=== PATIENT | female | born 1925 | race Caucasian/White ===

== ENCOUNTER 2017-02-28 12:00 | Inpatient (IN) | payer MEDICARE, OTHER ==
--- NOTE | 2017-02-28 13:01 | ED PDOC ---
HPI: Abdomen Time Seen by Provider: 02/28/17 12:09 Chief Complaint (Nursing): Abdominal Pain Chief Complaint (Provider): Abdominal Pain History Per: Patient History/Exam Limitations: no limitations Onset/Duration Of Symptoms: Days (x 3) Current Symptoms Are (Timing): Still Present Associated Symptoms: Vomiting Last Bowel Movement: Yesterday Additional Complaint(s): Rosanna is an 89 y/o female who presents to the ED complaining of abdominal pain ongoing for 3 days, with associated vomiting this morning. Patient has a history of chronic constipation, last bowel movement was yesterday and she completed an enema today. Denies fever, diarrhea, dysuria, and hematuria. Was seen at [facility] 1 month ago and had a CT scan that was negative. PMD: Unknown Past Medical History Reviewed: Historical Data, Nursing Documentation, Vital Signs Vital Signs: Last Vital Signs Temp 98.3 F 02/28/17 15:28 Pulse 74 02/28/17 15:28 Resp 20 02/28/17 12:05 BP 123/76 02/28/17 15:28 Pulse Ox 98 02/28/17 15:28 - Medical History PMH: Arthritis, CAD, Cardia Arrhythmia, Diverticulitis, Gastritis, Hiatal Hernia , Osteoporosis - Surgical History Surgical History: Appendectomy, Cholecystectomy Other surgeries: Hiatal hernia repair 2 years ago - Family History Family History: States: Unknown Family Hx - Social History Current smoker - smoking cessation education provided: No Alcohol: None Drugs: Denies - Home Medications Home Medications: Ambulatory Orders Medication Instructions Recorded Dicyclomine HCl [Dicyclomine HCl] 10 mg PO TID 02/28/17 Digoxin [Lanoxin] 0.25 mg PO DAILY 02/28/17 Furosemide [Lasix] 40 mg PO DAILY 02/28/17 Levocetirizine Dihydrochloride 5 mg PO PRN 02/28/17 [Xyzal] traMADol [Ultram] 50 mg PO Q4 PRN 02/28/17 - Allergies Allergies/Adverse Reactions: Allergies Allergy/AdvReac Type Severity Reaction Status Date / Time apple Allergy SHORTNESS Verified 02/28/17 12:59 OF BREATH banana Allergy SHORTNESS Verified 02/28/17 12:59 OF BREATH FISH Allergy SHORTNESS Verified 02/28/17 12:59 OF BREATH iodine Allergy SHORTNESS Verified 02/28/17 12:59 OF BREATH latex Allergy RASH Verified 02/28/17 12:59 codeine AdvReac ANAPHYLAXIS Verified 02/28/17 12:59 lidocaine AdvReac ANAPHYLAXIS Verified 02/28/17 12:59 Review of Systems ROS Statement: Except As Marked, All Systems Reviewed And Found Negative Constitutional: Negative for: Fever Gastrointestinal: Positive for: Vomiting, Abdominal Pain, Constipation (chronic) . Negative for: Diarrhea Genitourinary Female: Negative for: Dysuria, Hematuria Physical Exam - Reviewed Nursing Documentation Reviewed: Yes Vital Signs Reviewed: Yes - Physical Exam Appears: Positive for: Non-toxic, In Acute Distress (moderate painful distress) Head Exam: Positive for: ATRAUMATIC, NORMAL INSPECTION, NORMOCEPHALIC Skin: Positive for: Normal Color, Warm, Dry Eye Exam: Positive for: EOMI, Normal appearance, PERRL Neck: Positive for: Normal, Painless ROM, Supple Cardiovascular/Chest: Positive for: Regular Rate, Rhythm. Negative for: Murmur Respiratory: Positive for: Normal Breath Sounds. Negative for: Accessory Muscle Use, Respiratory Distress Gastrointestinal/Abdominal: Positive for: Soft, Tenderness (generalized abdominal tenderness, mostly in LUQ). Negative for: Guarding, Rebound Back: Positive for: Normal Inspection. Negative for: Vertebral Tenderness Extremity: Positive for: Normal ROM. Negative for: Pedal Edema, Deformity Neurologic/Psych: Positive for: Alert, Oriented - Laboratory Results Result Diagrams: 02/28/17 13:05 02/28/17 13:05 - ECG O2 Sat by Pulse Oximetry: 98 (RA) Pulse Ox Interpretation: Normal - Critical Care Total Time (In Min): 30 Medical Decision Making Medical Decision Making: Time: 12:59 Impression: Abdominal Pain and Vomiting Initial Plan: --CMP --CBC w/ differential --Lipase --PTT --Prothrombin time --Urine dipstick --Urinalysis --EKG --Bentyl 20 mg IM --Zofran 4 mg IV --Pending CT Abdomen/Pelvis Time: 13:57 --Digoxin stat Time: 15:02 CT Abdomen/Pelvis: FINDINGS: Free air under the diaphragms, free air throughout the abdomen and pelvis, multiple small ocular also air identified. Intense inflammatory changes in the left lower quadrant and pelvis likely related to acute diverticulitis affecting the descending colon and adjacent sigmoid colon. Micro perforations are also identified. LOWER THORAX: Unremarkable. LIVER: Unremarkable. No gross lesion or ductal dilatation. GALLBLADDER AND BILE DUCTS: Status post cholecystectomy. No abnormality is seen in the gallbladder fossa. PANCREAS: Atrophic pancreas without focal abnormality SPLEEN: Unremarkable. ADRENALS: Unremarkable. No mass. KIDNEYS AND URETERS: Unremarkable. No hydronephrosis. No solid mass. VASCULATURE: Unremarkable. No aortic aneurysm. BOWEL: Intense inflammatory changes affecting the descending colon and sigmoid. This likely, given extensive diverticular disease, represents acute diverticulitis and perforations both micro perforations and free air. Alternatively, less likely would be acute colitis accounting for these findings. Right inguinal hernia identified, of this appears be chronic it was apparent on the prior study from February 24, 2010. APPENDIX: A normal appendix is not visualized. PERITONEUM: Unremarkable. No free fluid. No free air. LYMPH NODES: Unremarkable. No enlarged lymph nodes. BLADDER: Unremarkable. REPRODUCTIVE: Unremarkable. BONES: Profound osteopenia. Evidence of previous kyphoplasty T11 and L1. Compression fracture T12. OTHER FINDINGS: None. IMPRESSION: Intense inflammatory changes left ana abdomen and pelvis primarily centered about the descending colon and sigmoid. This more likely represents acute diverticulitis than colitis. Perforation of a viscus likely the descending colon has resulted in free intraperitoneal air. These inflammatory changes dissects along the peritoneal refraction and are contiguous with the left psoas muscle. Free air identified throughout the abdomen and pelvis. No drainable collection identified. Critical results protocol: 1. Study completed 14:24. 2. Radiologist notification 14:38. 3. Critical results provided to Dr. Jenkins in the emergency department at 14: 51. 4. Results available in the electronic medical record 15:01 Time: 14:56 Surgery paged. Time: 15:[address] Kaba, MELISSAO, [facility], Surgery resident. Time: 15:15 Case discussed with residential substance abuse counselor. Time: 15:23 Case discussed with Assistant Community Director: Dr. Diaz Scribe Attestation: Documented by Khadijah Thurman, acting as a scribe for Christel Rasheed MD Provider Scribe Attestation: All medical record entries made by the Scribe were at my direction and personally dictated by me. I have reviewed the chart and agree that the record accurately reflects my personal performance of the history, physical exam, medical decision making, and the department course for this patient. I have also personally directed, reviewed, and agree with the discharge instructions and disposition. Disposition - Clinical Impression Clinical Impression: Acute diverticulitis, Perforated abdominal viscus, Free intraperitoneal air - Patient ED Disposition Is Patient to be Admitted: Yes - Disposition Referrals: Provider TBD, [Primary Care Provider] - Disposition Time: 16:15 Condition: GUARDED Forms: [employer] (Romanian) - Pt Status Changed To: Hospital Disposition Of: Inpatient - Admit Certification Admit to Inpatient:: After my assessment, the patient will require hospitalization for at least two midnights. This is because of the severity of symptoms shown, intensity of services needed, and/or the medical risk in this patient being treated as an outpatient. - POA Present On Arrival: Poor Glycemic Control
[2017-02-28 13:22] LABS: HEMATOCRIT 38.8 % (34.0-47.0); LYMPH # 0.4 K/uL (1.0-4.3); LYMPH % 3.8 % (20.0-40.0); MEAN CORPUSCULAR HEMOGLOBIN 31.8 pg (27.0-31.0); MEAN CORPUSCULAR HGB CONC 34.2 g/dL (33.0-37.0); MEAN PLATELET VOLUME 8.3 fl (7.2-11.7); MONO # 0.3 K/uL (0.0-0.8); MONO % 3.1 % (0.0-10.0); NEUT # 8.9 K/uL (1.8-7.0); NEUT % 93.1 % (50.0-75.0); NRBC % 0.1 % (0.0-0.0); PLATELET COUNT 241 K/uL (130-400); RED CELL DISTRIBUTION WIDTH 14.8 % (11.5-14.5); WHITE BLOOD COUNT 9.5 K/uL (4.8-10.8)
[2017-02-28 13:37] LABS: ALB/GLOB RATIO 1.2 (1.0-2.1); ALKALINE PHOSPHATASE 56 U/L (38-126); ALT/SGPT 38 U/L (9-52); AST/SGOT 23 U/L (14-36); BILIRUBIN,TOTAL 0.8 mg/dl (0.2-1.3); BLOOD UREA NITROGEN 25 mg/dl (7-17); CALCIUM 8.7 mg/dL (8.4-10.2); CARBON DIOXIDE 28 mmol/L (22-30); CHLORIDE 99 mmol/L (98-107); GFR AFRICAN-AMERICAN > 60; GLUCOSE,RANDOM 220 mg/dL (65-105); LIPASE 25 U/L (23-300); POTASSIUM 4.2 MMOL/L (3.6-5.0); SODIUM 137 mmol/l (132-148); TOTAL PROTEIN 6.6 G/DL (6.3-8.2)
[2017-02-28] MEDS ORDERED: Iohexol 300 100 ML IJ ONE (14:15)
[2017-02-28] MEDS ORDERED: Sodium Chloride 0.9% 0 ML IV ONE (14:15)
[2017-02-28 14:16] LABS: LARGE PLATELETS PRESENT; NEUTROPHIL 86 % (42-75); REACTIVE LYMPHOCYTES 1 % (0-0); TOTAL CELLS COUNTED 100
[2017-02-28 14:32] LABS: RBC URINE 9 /hpf (0-3); URINE BILIRUBIN NEGATIVE (NEGATIVE); URINE BLOOD NEGATIVE (NEGATIVE); URINE COLOR YELLOW (YELLOW); URINE GLUCOSE (UA) 150 mg/dL (Normal); URINE KETONE TRACE mg/dL (NEGATIVE); URINE LEUKOCYTE ESTERASE NEG Leu/uL (Negative); URINE PROTEIN 30 mg/dL (NEGATIVE); URINE UROBILINOGEN 0.2-1.0 mg/dL (0.2-1.0); WBC URINE < 1 /hpf (0-5)
[2017-02-28] MEDS ORDERED: Fluconazole 150 MG TAB PO STA (14:37)
--- NOTE | 2017-02-28 15:04 | CT ---
PROCEDURE: CT Abdomen and Pelvis without intravenous contrast HISTORY: Abd pain COMPARISON: 02/24/2010 CT abdomen and pelvis TECHNIQUE: Unenhanced study. Neither oral nor intravenous contrast administered. Radiation dose: Total exam DLP = 463.43 mGy-cm. This CT exam was performed using one or more of the following dose reduction techniques: Automated exposure control, adjustment of the mA and/or kV according to patient size, and/or use of iterative reconstruction technique. FINDINGS: Free air under the diaphragms, free air throughout the abdomen and pelvis, multiple small ocular also air identified. Intense inflammatory changes in the left lower quadrant and pelvis likely related to acute diverticulitis affecting the descending colon and adjacent sigmoid colon. Micro perforations are also identified. LOWER THORAX: Unremarkable. LIVER: Unremarkable. No gross lesion or ductal dilatation. GALLBLADDER AND BILE DUCTS: Status post cholecystectomy. No abnormality is seen in the gallbladder fossa. PANCREAS: Atrophic pancreas without focal abnormality SPLEEN: Unremarkable. ADRENALS: Unremarkable. No mass. KIDNEYS AND URETERS: Unremarkable. No hydronephrosis. No solid mass. VASCULATURE: Unremarkable. No aortic aneurysm. BOWEL: Intense inflammatory changes affecting the descending colon and sigmoid. This likely, given extensive diverticular disease, represents acute diverticulitis and perforations both micro perforations and free air. Alternatively, less likely would be acute colitis accounting for these findings. Right inguinal hernia identified, of this appears be chronic it was apparent on the prior study from February 24, 2010. APPENDIX: A normal appendix is not visualized. PERITONEUM: Unremarkable. No free fluid. No free air. LYMPH NODES: Unremarkable. No enlarged lymph nodes. BLADDER: Unremarkable. REPRODUCTIVE: Unremarkable. BONES: Profound osteopenia. Evidence of previous kyphoplasty T11 and L1. Compression fracture T12. OTHER FINDINGS: None. IMPRESSION: Intense inflammatory changes left ana abdomen and pelvis primarily centered about the descending colon and sigmoid. This more likely represents acute diverticulitis than colitis. Perforation of a viscus likely the descending colon has resulted in free intraperitoneal air. These inflammatory changes dissects along the peritoneal refraction and are contiguous with the left psoas muscle. Free air identified throughout the abdomen and pelvis. No drainable collection identified. Critical results protocol: 1. Study completed 14:24. 2. Radiologist notification 14:38. 3. Critical results provided to Dr. Jenkins in the emergency department at 14:51. 4. Results available in the electronic medical record 15:01
[2017-02-28] MEDS ORDERED: HYDROmorphone 0.5 mg/0.5 ml ISec ONE (15:19)
[2017-02-28] MEDS ORDERED: Piperacillin/Tazobact 3.375 GM in Sodium Chloride 0.9% 100 ML IVPB STA (15:57)
[2017-02-28] MEDS ORDERED: Piperacillin/Tazobact 3.375 gm Inj IVPB ONE (16:02)
--- NOTE | 2017-02-28 16:17 | CP.PCM.CON ---
<Constantin Murillo - Last Filed: 02/28/17 18:59> History of Present Illness - History of Present Illness History of Present Illness: General Surgery Consult Note for Dr. Kaba 83 F with PMH of diverticulitis, CHF, chronic back pain and glaucoma presents to ED with complaint of abdominal pain. Patient states that she has had this pain for 4 days. Four days ago, patient fell while walking with rolling walker. Patient states pain was gradual onset and progressively getting worse. Patient has had similar pain in past for diverticulitis flare but to a lesser intensity. Patient has chronic constipation and uses a fleet enema everyday for BM. Patient rates pain 10/10 in severity. She describes the pain as constant and sharp located in LLQ with radiation to umbilicus. She has associated nausea but denies vomiting. Denies any alleviating or exacerbating factors. Admits to chills but denies fever, cp, sob, diarrhea. PMD: Dr. Roberts PMH: diverticulitis, CHF, ?CAD, Osteoporosis, Gastritis, chronic back pain and glaucoma Meds: Lasix, Digoxin, Tramadol, Dicyclomine, Xyzal PSH: hiatal hernia repair 2 years ago, Appendectomy, Cholecystectomy Hosp: denies FH: unknown Social: former smoker - quit 20 years ago, denies etoh/illicit drug use. Review of Systems - Review of Systems All systems: reviewed and no additional remarkable complaints except (chills, constipation, nausea, abdominal pain) - Constitutional Constitutional: Chills. absent: Fever Past Patient History - Infectious Disease Hx of Infectious Diseases: None - Past Social History Alcohol: None Drugs: Denies - CARDIAC Hx Cardia Arrhythmia: Yes - MUSCULOSKELETAL/RHEUMATOLOGICAL Hx Arthritis: Yes Hx Osteoporosis: Yes - GASTROINTESTINAL Hx Diverticulitis: Yes Hx Gastritis: Yes - PSYCHIATRIC Hx Substance Use: No - SURGICAL HISTORY Hx Appendectomy: Yes Hx Cholecystectomy: Yes Meds Allergies/Adverse Reactions: Allergies Allergy/AdvReac Type Severity Reaction Status Date / Time apple Allergy SHORTNESS Verified 02/28/17 12:59 OF BREATH banana Allergy SHORTNESS Verified 02/28/17 12:59 OF BREATH FISH Allergy SHORTNESS Verified 02/28/17 12:59 OF BREATH iodine Allergy SHORTNESS Verified 02/28/17 12:59 OF BREATH latex Allergy RASH Verified 02/28/17 12:59 codeine AdvReac ANAPHYLAXIS Verified 02/28/17 12:59 lidocaine AdvReac ANAPHYLAXIS Verified 02/28/17 12:59 - Medications Medications: Current Medications Piperacillin Sod/Tazobactam (Sod 3.375 gm/ Sodium Chloride) 100 mls @ 100 mls/ hr IVPB STAT STA Stop: 02/28/17 16:56 Last Admin: 02/28/17 16:03 Dose: 100 mls/hr Physical Exam - Constitutional Appears: In Acute Distress (moderate) - Head Exam Head Exam: ATRAUMATIC, NORMOCEPHALIC - Eye Exam Eye Exam: Normal appearance - ENT Exam ENT Exam: Mucous Membranes Dry - Neck Exam Neck exam: Positive for: Full Rom - Respiratory Exam Respiratory Exam: NORMAL BREATHING PATTERN - Cardiovascular Exam Cardiovascular Exam: REGULAR RHYTHM - GI/Abdominal Exam GI & Abdominal Exam: Distended, Firm, Guarding, Rebound, Tenderness (LLQ, periumbilical) Additional comments: +Bowel sounds - Extremities Exam Extremities exam: Positive for: pedal edema, pedal pulses present. Negative for : calf tenderness - Back Exam Back exam: absent: CVA tenderness (L), CVA tenderness (R) - Neurological Exam Neurological exam: Alert, CN II-XII Intact, Oriented x3 - Psychiatric Exam Psychiatric exam: Normal Affect, Normal Mood - Skin Skin Exam: Dry, Intact, Normal Color, Warm Results - Vital Signs Recent Vital Signs: Last Vital Signs Temp 98.3 F 02/28/17 15:28 Pulse 74 02/28/17 15:28 Resp 20 02/28/17 12:05 BP 123/76 02/28/17 15:28 Pulse Ox 98 02/28/17 15:28 - Labs Result Diagrams: 02/28/17 13:05 02/28/17 13:05 Labs: Laboratory Results - last 24 hr 02/28/17 02/28/17 02/28/17 13:05 13:05 13:05 WBC 9.5 RBC 4.17 Hgb 13.3 Hct 38.8 MCV 93.0 MCH 31.8 H MCHC 34.2 RDW 14.8 H Plt Count 241 MPV 8.3 Neut % (Auto) 93.1 H Lymph % (Auto) 3.8 L [place] % (Auto) 3.1 Eos % (Auto) 0.0 Baso % (Auto) 0.0 Neut # 8.9 H Lymph # 0.4 L [place] # 0.3 Eos # 0.0 Baso # 0.0 Neutrophils % (Manual) 86 H Band Neutrophils % 5 H Lymphocytes % (Manual) 5 L Reactive Lymphs % 1 H Monocytes % (Manual) 3 Platelet Estimate Normal Large Platelets Present Poikilocytosis (manual Slight Anisocytosis (manual) Slight PT 13.8 H INR 1.3 H APTT 24.0 L Sodium 137 Potassium 4.2 Chloride 99 Carbon Dioxide 28 Anion Gap 14 BUN 25 H Creatinine 0.6 L Est GFR ( Amer) > 60 Est GFR (Non-Af Amer) > 60 Random Glucose 220 H Calcium 8.7 Total Bilirubin 0.8 AST 23 ALT 38 Alkaline Phosphatase 56 Total Protein 6.6 Albumin 3.6 Globulin 3.1 Albumin/Globulin Ratio 1.2 Lipase 25 Urine Color Urine Clarity Urine pH Ur Specific [place] Urine Protein Urine Glucose (UA) Urine Ketones Urine Blood Urine Nitrate Urine Bilirubin Urine Urobilinogen Ur Leukocyte Esterase Urine RBC (Auto) Urine Microscopic WBC Ur Squamous Epith Cells Ur Yeast w Hyphae Urine Yeast (Budding) Digoxin 02/28/17 02/28/17 14:00 14:19 WBC RBC Hgb Hct MCV MCH MCHC RDW Plt Count MPV Neut % (Auto) Lymph % (Auto) [place] % (Auto) Eos % (Auto) Baso % (Auto) Neut # Lymph # [place] # Eos # Baso # Neutrophils % (Manual) Band Neutrophils % Lymphocytes % (Manual) Reactive Lymphs % Monocytes % (Manual) Platelet Estimate Large Platelets Poikilocytosis (manual Anisocytosis (manual) PT INR APTT Sodium Potassium Chloride Carbon Dioxide Anion Gap BUN Creatinine Est GFR ( Amer) Est GFR (Non-Af Amer) Random Glucose Calcium Total Bilirubin AST ALT Alkaline Phosphatase Total Protein Albumin Globulin Albumin/Globulin Ratio Lipase Urine Color Yellow Urine Clarity Cloudy Urine pH 8.0 Ur Specific [place] 1.019 Urine Protein 30 Urine Glucose (UA) 150 Urine Ketones Trace Urine Blood Negative Urine Nitrate Negative Urine Bilirubin Negative Urine Urobilinogen 0.2-1.0 Ur Leukocyte Esterase Neg Urine RBC (Auto) 9 H Urine Microscopic WBC < 1 Ur Squamous Epith Cells < 1 Ur Yeast w Hyphae Rare H Urine Yeast (Budding) Few H Digoxin 0.6 L Assessment & Plan - Assessment and Plan (Free Text) Plan: 83 F with PMH of diverticulitis, CHF, chronic back pain and glaucoma presents for abdominal pain found to sigmoid diverticulitis with free air under the diaphragm. -CT abd/pelvis: Intense inflammatory changes left ana abdomen and pelvis primarily centered about the descending colon and sigmoid likely represents acute diverticulitis. Perforation of a viscus likely the descending colon has resulted in free intraperitoneal air. Free air identified throughout the abdomen and pelvis. No drainable collection identified (see full report). -Patient scheduled to go to OR for Kandis's procedure -NPO -IVF -IV Abx -Anti-emetics/Analgesics -DVT/GI ppx -DW Dr. Sesar Murillo PGY1 <Damon Kaba - Last Filed: 02/28/17 19:15> History of Present Illness - History of Present Illness History of Present Illness: Patient was seen and examined at the bedside. Agree with resident's note above. Results - Vital Signs Recent Vital Signs: Last Vital Signs Temp 98.5 F 02/28/17 17:46 Pulse 102 H 02/28/17 17:46 Resp 20 02/28/17 17:54 BP 135/83 02/28/17 17:46 Pulse Ox 99 02/28/17 17:46 - Labs Result Diagrams: 02/28/17 13:05 02/28/17 13:05 Labs: Laboratory Results - last 24 hr 02/28/17 16:56 Blood Type A NEGATIVE Antibody Screen Negative BBK History Checked No verified bt - Imaging and Cardiology CT scan - abdomen Status: Image reviewed by me, Report reviewed by me Assessment & Plan - Assessment and Plan (Free Text) Plan: - NPO - IV fluid hydration - Pain control - Zosyn IV - To OR for Exploratory Laparotomy, bowel resection and colostomy
--- NOTE | 2017-02-28 16:57 | CP.PCM.CON ---
History of Present Illness - History of Present Illness History of Present Illness: 89 YOF with no significant medical history came to ER with 3 days h/o abdominal pain, which got worse today. She has been having constipation and some vomiting also, use enema and had BM yesterday. No fever. In ER she had CT abdomen, which is CW perforated bowlel and divirticulitis. I saw the pt in ER, she was not hypotensive, no fever. Pt was also being evaluated by technical operations vice president, discussed and patient will go for surgery shortly. Review of Systems - Constitutional Constitutional: Weakness - EENT Eyes: As Per HPI Ears: As Per HPI - Cardiovascular Cardiovascular: As Per HPI - Respiratory Respiratory: As Per HPI - Gastrointestinal Gastrointestinal: Change in Bowel Habits - Genitourinary Genitourinary: As Per HPI - Neurological Neurological: As Per HPI Past Patient History - Infectious Disease Hx of Infectious Diseases: None - Past Social History Alcohol: None Drugs: Denies - CARDIAC Hx Cardia Arrhythmia: Yes - MUSCULOSKELETAL/RHEUMATOLOGICAL Hx Arthritis: Yes Hx Osteoporosis: Yes - GASTROINTESTINAL Hx Diverticulitis: Yes Hx Gastritis: Yes - PSYCHIATRIC Hx Substance Use: No - SURGICAL HISTORY Hx Appendectomy: Yes Hx Cholecystectomy: Yes Meds Allergies/Adverse Reactions: Allergies Allergy/AdvReac Type Severity Reaction Status Date / Time apple Allergy SHORTNESS Verified 02/28/17 12:59 OF BREATH banana Allergy SHORTNESS Verified 02/28/17 12:59 OF BREATH FISH Allergy SHORTNESS Verified 02/28/17 12:59 OF BREATH iodine Allergy SHORTNESS Verified 02/28/17 12:59 OF BREATH latex Allergy RASH Verified 02/28/17 12:59 codeine AdvReac ANAPHYLAXIS Verified 02/28/17 12:59 lidocaine AdvReac ANAPHYLAXIS Verified 02/28/17 12:59 - Medications Medications: Current Medications Piperacillin Sod/Tazobactam (Sod 3.375 gm/ Sodium Chloride) 100 mls @ 100 mls/ hr IVPB STAT STA Stop: 02/28/17 16:56 Last Admin: 02/28/17 16:03 Dose: 100 mls/hr Physical Exam - Head Exam Head Exam: ATRAUMATIC - Eye Exam Eye Exam: Normal appearance - ENT Exam ENT Exam: Mucous Membranes Moist - Neck Exam Neck exam: Positive for: Full Rom - Respiratory Exam Respiratory Exam: NORMAL BREATHING PATTERN - Cardiovascular Exam Cardiovascular Exam: Tachycardia - GI/Abdominal Exam GI & Abdominal Exam: Tenderness - Rectal Exam Rectal Exam: Deferred Results - Vital Signs Recent Vital Signs: Last Vital Signs Temp 98.5 F 02/28/17 16:41 Pulse 102 H 02/28/17 16:41 Resp 20 02/28/17 12:05 BP 108/59 L 02/28/17 16:41 Pulse Ox 98 02/28/17 16:41 - Labs Result Diagrams: 02/28/17 13:05 02/28/17 13:05 Assessment & Plan - Assessment and Plan (Free Text) Assessment: Perforated divirticulitis h/o Prox afif in the past Vomiting Plan: IVf, NS at 100 cc/h Zosyn IV 3.37 every 8 hours To OR today Morphin for pain Zofran IV for NVD SCDs
[2017-02-28] MEDS ORDERED: Bupivacaine 0.5% Inj(30mL) ONE (18:07)
[2017-02-28] MEDS ORDERED: Liquid Adhesive TOP ONE ×2 (18:07→21:19)
[2017-02-28] MEDS ORDERED: Lidocaine 1% Inj (20ml) ONE (18:07)
[2017-02-28] MEDS ORDERED: Rocuronium 10 mg/ml (5 ml) ONE (18:15)
[2017-02-28] MEDS ORDERED: Phenylephrine 10 mg/ml Inj ONE (18:16)
[2017-02-28] MEDS ORDERED: Etomidate 20 mg/10ml Inj IV ONE (18:16)
[2017-02-28] MEDS ORDERED: Sevoflurane - Inhalation Anesthetic Liq (250 ml) ONE (19:04)
[2017-02-28] MEDS ORDERED: Lactated Ringer's 1,000 ML IV ONE ×2 (19:05→19:35)
[2017-02-28] MEDS ORDERED: Neostigmine Methylsulfate 2 MG/2 ML ML IV ONE (20:55)
--- NOTE | 2017-02-28 21:49 | CARD ---
APPROVED REPORT EKG Measurement Heart [id number] OK [id number] <Conclusion> Normal sinus rhythm with sinus arrhythmia Normal ECG
--- NOTE | 2017-02-28 22:10 | PCM.SURG1 ---
Surgeon's Initial Post Op Note - Surgeon's Notes Surgeon: Sesar Chemical Processing Technician: Chidi PGY1 Type of Anesthesia: General Endo Anesthesia Administered By: Dr. Martinez Pre-Operative Diagnosis: sigmoid diverticulitis with perforation and free air under the diaphragm Operative Findings: perforated sigmoid colon, purulent peritonitis Post-Operative Diagnosis: perforated sigmoid colon with purulent peritonitis Operation Performed: exploratory laparotomy, Kandis's procedure Specimen/Specimens Removed: sigmoid colon, omental mass Estimated Blood Loss: EBL {In ML}: 45 Blood Products Given: N/A Drains Used: No Drains Post-Op Condition: Good Date of Surgery/Procedure: 02/28/17 Time of Surgery/Procedure: 07:00
[2017-02-28] MEDS: Lactated Ringer's 1,000 ML IV SCH (22:27)
[2017-02-28] MEDS: Piperacillin/Tazobact 3.375 GM in Sodium Chloride 0.9% 100 ML IVPB SCH (22:31)
[2017-03-01] MEDS: Piperacillin/Tazobact 3.375 GM in Sodium Chloride 0.9% 100 ML IVPB SCH ×4 (03:34→21:04)
[2017-03-01 05:23] LABS: ALKALINE PHOSPHATASE 48 U/L (38-126); ALT/SGPT 30 U/L (9-52); AST/SGOT 24 U/L (14-36); BLOOD UREA NITROGEN 22 mg/dl (7-17); CARBON DIOXIDE 24 mmol/L (22-30); CHLORIDE 101 mmol/L (98-107); GFR AFRICAN-AMERICAN > 60; GLUCOSE,RANDOM 148 mg/dL (65-105); POTASSIUM 4.1 MMOL/L (3.6-5.0); SODIUM 135 mmol/l (132-148); TOTAL PROTEIN 5.8 G/DL (6.3-8.2)
--- NOTE | 2017-03-01 07:14 | CP.PCM.PN ---
Subjective - Date & Time of Evaluation Date of Evaluation: 03/01/17 Time of Evaluation: 07:12 - Subjective Subjective: General Surgery - Dr. Kaba Pt S&E. THEA. Pt had to be put in restraints last night d/t attempts at pulling out NGT/Laguna after surgery. She remains somewhat confused this morning. She denies any abdominal pain. No Fevers overnight, vitals stable and WNL. Laguna w/ 450cc clear yellow urine, NGT with 200cc dark bilious drainage. Objective - Vital Signs/Intake and Output Vital Signs (last 24 hours): Temp Pulse Resp BP Pulse Ox 98.7 F 95 H 18 113/83 100 03/01/17 04:00 03/01/17 06:00 03/01/17 06:00 03/01/17 06:00 03/01/17 06:00 Intake and Output: 03/01/17 03/01/17 06:59 18:59 Intake Total 2900 Output Total 1145 Balance 1755 - Medications Medications: Current Medications Famotidine (Pepcid) 20 mg IVP Q12 [facility] Last Admin: 02/28/17 22:30 Dose: 20 mg Hydromorphone HCl (Dilaudid) 0.25 mg IVP Q4 PRN PRN Reason: Pain, moderate (4-7) Lactated Ringer's (Lactated Ringer's) 1,000 mls @ 100 mls/hr IV .Q10H [facility] Last Admin: 02/28/17 22:27 Dose: 100 mls/hr Piperacillin Sod/Tazobactam (Sod 3.375 gm/ Sodium Chloride) 100 mls @ 100 mls/ hr IVPB Q6 [facility] Last Admin: 03/01/17 03:34 Dose: 100 mls/hr Ondansetron HCl (Zofran Inj) 4 mg IVP Q4 PRN PRN Reason: Nausea/Vomiting Last Admin: 02/28/17 22:26 Dose: 4 mg - Labs Labs: 03/01/17 04:00 PT 13.8 Seconds (9.8-13.1) H 02/28/17 13:05 INR 1.3 (0.9-1.2) H 02/28/17 13:05 APTT 24.0 Seconds (25.6-37.1) L 02/28/17 13:05 - Constitutional Appears: No Acute Distress - Head Exam Head Exam: ATRAUMATIC, NORMAL INSPECTION, NORMOCEPHALIC - Eye Exam Eye Exam: Normal appearance - Respiratory Exam Respiratory Exam: NORMAL BREATHING PATTERN. absent: Respiratory Distress - Cardiovascular Exam Cardiovascular Exam: REGULAR RHYTHM - GI/Abdominal Exam GI & Abdominal Exam: Soft. absent: Distended, Firm, Guarding, Tenderness, Rebound Additional comments: colostomy in LLQ pink and viable, no output yet Midline inciison w/ haroldo, c/d/i - Neurological Exam Neurological Exam: Awake - Skin Skin Exam: Dry, Intact Assessment and Plan - Assessment and Plan (Free Text) Assessment: 89 yo F w/ perforated sigmoid diverticulitis, s/p Kandis's, POD #1 -Monitor Is/Os -NGT to low intermittent suction -Continue IV Abx, Pain control, IVF -Care as per ICU team -OOB to chair as able, PT/IS HAROON Lee PGY3
--- NOTE | 2017-03-01 07:15 | CP.PCM.PN ---
Subjective - Date & Time of Evaluation Date of Evaluation: 03/01/17 Time of Evaluation: 07:12 - Subjective Subjective: Surgery: Dr. Boateng Pt seen and examined. Per nursing, pt was agitated overnight. Required ativan and is in restraints. This AM, pt appears confused. Unable to answer questions. Objective - Vital Signs/Intake and Output Vital Signs (last 24 hours): Temp Pulse Resp BP Pulse Ox 98.7 F 95 H 18 113/83 100 03/01/17 04:00 03/01/17 06:00 03/01/17 06:00 03/01/17 06:00 03/01/17 06:00 Intake and Output: 03/01/17 03/01/17 06:59 18:59 Intake Total 2900 Output Total 1145 Balance 1755 - Medications Medications: Current Medications Famotidine (Pepcid) 20 mg IVP Q12 [facility] Last Admin: 02/28/17 22:30 Dose: 20 mg Hydromorphone HCl (Dilaudid) 0.25 mg IVP Q4 PRN PRN Reason: Pain, moderate (4-7) Lactated Ringer's (Lactated Ringer's) 1,000 mls @ 100 mls/hr IV .Q10H [facility] Last Admin: 02/28/17 22:27 Dose: 100 mls/hr Piperacillin Sod/Tazobactam (Sod 3.375 gm/ Sodium Chloride) 100 mls @ 100 mls/ hr IVPB Q6 [facility] Last Admin: 03/01/17 03:34 Dose: 100 mls/hr Ondansetron HCl (Zofran Inj) 4 mg IVP Q4 PRN PRN Reason: Nausea/Vomiting Last Admin: 02/28/17 22:26 Dose: 4 mg - Labs Labs: 03/01/17 04:00 PT 13.8 Seconds (9.8-13.1) H 02/28/17 13:05 INR 1.3 (0.9-1.2) H 02/28/17 13:05 APTT 24.0 Seconds (25.6-37.1) L 02/28/17 13:05 - Constitutional Appears: Non-toxic, No Acute Distress, Confused - Head Exam Head Exam: ATRAUMATIC, NORMOCEPHALIC - Eye Exam Eye Exam: EOMI - ENT Exam ENT Exam: Mucous Membranes Moist - Neck Exam Neck Exam: Full ROM - Respiratory Exam Respiratory Exam: NORMAL BREATHING PATTERN. absent: Accessory Muscle Use, Respiratory Distress - GI/Abdominal Exam GI & Abdominal Exam: Soft. absent: Distended, Firm, Guarding, Rigid, Tenderness , Rebound Additional comments: midline incision C/D/I Stoma pink and patent, +bowel sweat
[2017-03-01 07:46] LABS: BASO % 0.1 % (0.0-2.0); HEMATOCRIT 34.2 % (34.0-47.0); LYMPH # 0.5 K/uL (1.0-4.3); LYMPH % 4.4 % (20.0-40.0); MEAN CELL VOLUME 93.5 fl (81.0-99.0); MEAN CORPUSCULAR HEMOGLOBIN 31.7 pg (27.0-31.0); MEAN CORPUSCULAR HGB CONC 33.9 g/dL (33.0-37.0); MONO # 0.4 K/uL (0.0-0.8); MONO % 3.8 % (0.0-10.0); NEUT # 10.8 K/uL (1.8-7.0); NEUT % 91.7 % (50.0-75.0); PLATELET COUNT 209 K/uL (130-400); RED CELL DISTRIBUTION WIDTH 15.1 % (11.5-14.5); WHITE BLOOD COUNT 11.8 K/uL (4.8-10.8)
[2017-03-01 09:46] LABS: NEUTROPHIL 80 % (42-75); TOTAL CELLS COUNTED 100
[2017-03-01 09:47] LABS: LARGE PLATELETS PRESENT
--- NOTE | 2017-03-01 10:56 | OP ---
PROCEDURE DATE: 03/01/2017 PREOPERATIVE DIAGNOSES: Perforated viscus, perforated sigmoid versus descending colon. POSTOPERATIVE DIAGNOSIS: Perforated sigmoid colon. PROCEDURE: Exploratory laparotomy and Kandis's procedure. SPECIMEN: Sigmoid colon. SURGEON: Damon Kaba MD OFFICE AGENT: Dr. Murillo. ANESTHESIA ADMINISTERED BY: Cortney Stephenson MD. TYPE OF ANESTHESIA: General endotracheal intubation. IV FLUID INTAKE: Crystalloids. ESTIMATED BLOOD LOSS: 100 mL. INTRAOPERATIVE FINDINGS: Purulent perotonitis, intra-abdominal collection BRIEF HISTORY: Ms. Khan is a very pleasant 89-year-old female who presented to the hospital complaining of severe abdominal pain for the duration of 4 days. Upon further investigation, patient was found to have free air under the diaphragm on a CAT scan and severe inflammatory changes around descending and sigmoid colon. All the risks and benefits of the procedure were explained to the patient and with the patient have an full the patient having a full understanding of all the risks and benefits involved, informed consent was obtained, and the patient was taken to the operating room for above stated procedure. DESCRIPTION OF PROCEDURE: The patient was brought into the operating room and placed supine on the operating table. Bilateral Flowtron boots were applied to the patient's lower extremities. After successful induction of anesthesia and successful endotracheal intubation by the anesthesia team, Laguna catheter was inserted into the patient's urinary bladder and subsequent to that patient's abdomen was prepped with ChloraPrep stick and draped in the standard surgical fashion. Prior to the beginning of the procedure, timeout was called in the room and everyone in the room were in agreement. Using 10-blade scalpel knife, approximately 15 cm incision was made in the abdomen in a longitudinal fashion in the midline extending approximately 4 cm above the umbilicus, going around the umbilicus on the right side, and extending towards the pelvis. Subsequent to that, dissection was carried down with electrical cautery until the fascial layer was visualized. The fascia was clamped on both ends with Kimi clamps. At that point in time, peritoneal layer was encountered and was transected with electrical cautery and patient's abdominal cavity was entered. At that point in time, the facial layer was completely opened up with electrical cautery. And then our attention was turned to the left side of the patient's abdomen. I immediately was able to palpate a hard descending and a sigmoid colon and that appeared to be wrapped up and the omentum was teased off from the colon and there appeared to be an abscess cavity. The abscess cavity was in between the loops of small bowel, descending colon, and transverse colon that appeared to be stuck to the inflammatory process of the descending and sigmoid colon. Once the abscess cavity was entered, it was drained and at this point in time, the left colon was mobilized along the white line of Toldt and the entirety of the colon was inspected. There appeared to be some fibrinous exudate on the transverse colon, however, it did not appear to be abnormal and it was nice and soft so the area of concern was distal descending colon and proximal sigmoid. At that point in time, a small jose was made in the mesentery of the proximal sigmoid colon. Subsequent to that a Kimi clamp was placed through the defect and a blue-load 75 mm JOELLEN was fired across the proximal sigmoid colon. Then attention was turned to the distal descending colon. A small jose was made in the mesentery and subsequent to that another 75 mm blue-load JOELLEN was done at the distal descending colon. At that point in time, mesentery was taken with Impact ligature and once the specimen was completely freed up it was passed off to the [facility] as specimen. At this point in time, the abdominal cavity was copiously irrigated with a sterile saline and the fluid was suctioned out. The irrigation was in the left upper, left lower quadrants and pelvis and right side of the abdomen. Subsequent to that the abdomen was inspected for hemostasis. Hemostasis was confirmed and at this point in time, we made a decision to bring up descending colon colostomy. The Sebastián clamp was placed on skin midway between the anterior superior iliac spine and umbilicus and subsequent to that using the electrical cautery, a circular incision was made for ostomy. At that point in time, the dissection was carried down with electrical cautery until the anterior rectal sheath was encountered. Cruciate incision was made in the anterior rectus sheath and rectus muscle was encountered that was retracted both medially and laterally. Subsequent to that, posterior rectus sheath was encountered and it was opened up in the cruciate fashion as well. At that point in time, I was able to pass 2 fingers through the opening and subsequent to that using Nancy clamp, the transected end of the descending colon was brought up to the skin for the colostomy. At this point in time, fascial layer was closed with two #1 looped PDS, one from above, one from below, and tied in the middle and patient's wound was irrigated and dried and haroldo were applied to the skin. At that point in time, our attention was turned to the ostomy, using electrical cautery the bowel was opened up and the colostomy was matured with 4 Brenna sutures at 12, 3, 6, and 9 o'clock positions. Subsequent to that, colostomy was matured circumferentially with 3-0 Monocryl suture in an interrupted fashion. Once this was accomplished, ostomy was digitalized and appeared to be patent. At this point in time, patient's abdominal wall was washed and dried and clean dressing was applied to the midline incision and Mastisol was applied around the ostomy and the ostomy appliance was applied right on top. Patient was successfully extubated by the anesthesia team, transferred to the stretcher, and taken to the intensive care unit in a critical condition. At the end of the procedure, all instrument counts, needles, and sponges were correct. Damon Kaba MD MTDIsidro
--- NOTE | 2017-03-01 13:29 | HP ---
CHIEF COMPLAINT: Abdominal pain. HISTORY OF PRESENT ILLNESS: This is an 89-year-old female who was having abdominal pain for a few days. The patient had similar episode in the past. The patient is a known case of diverticulosis and had episodes of mild diverticulitis, and similar pain happened in the past, but this pain was getting much worse and became very intense yesterday, so the patient was brought to the emergency room where after workup, the patient was found to have perforated sigmoid diverticulitis. The patient underwent surgery and per surgeon note, the patient was admitted to Intensive Care Unit for further management. At this present time, the patient is sleepy and is under the effect of narcotics, and is not able to provide any further informative history or review of systems. REVIEW OF SYSTEMS: As mentioned earlier, is not available at this time, but was positive for this abdominal pain. PAST MEDICAL HISTORY: Unremarkable except diverticulosis. PAST SURGICAL HISTORY: Remarkable for cholecystectomy and appendectomy. PERSONAL HISTORY: The patient is currently nonsmoker and nondrinker. No substance abuse. MEDICATIONS: The patient is on the medications as prescribed in reconciliation list. ALLERGIES: THE PATIENT IS ALLERGIC TO APPLE, BANANA, FISH, IODINE, LATEX, CODEINE, AND LIDOCAINE. FAMILY HISTORY: Noncontributory. PHYSICAL EXAMINATION: GENERAL: Frail, elderly 89-year-old female, in the Intensive Care Unit with colostomy and an NG tube, in acute distress. VITAL SIGNS: Temperature 98.7, pulse 95, respirations 18, blood pressure 113/86, saturation is 100%. HEENT: Pupils are reacting to light. Normocephalic and atraumatic skull. NECK: No JVD. No thyromegaly. No lymphadenopathy. No nystagmus. HEART: S1 and S2 normal and regular. No significant murmur, gallop, or rub is heard. LUNGS: Show good bilateral air exchange. No rales or rhonchi. ABDOMEN: The patient is status post surgery with midline scar and left lower quadrant colostomy and Laguna catheter. No acute postop complications. Abdomen has generalized sensitivity. EXTREMITIES: No edema. No calf swelling. No tenderness. No acute ischemia. CENTRAL NERVOUS SYSTEM: Essentially unchanged. DIAGNOSTIC DATA: Available diagnostic data reviewed. WBC 9.5, hemoglobin 13.3, hematocrit 38.3, platelets 241. PT 13.8, INR 1.3. Sodium 137, potassium 4.2, chloride 99, bicarb 28, BUN 25, creatinine 0.6. Accu-Chek 249 and 220. SMA-12 otherwise was unremarkable. Urinalysis was unremarkable. Digoxin level was 0.6. CAT scan of abdomen was consistent with perforation. There is free air under the diaphragm, diverticulosis, and diverticulitis. CAT scan also showed descending colon and sigmoid diverticulitis. EKG does not reveal any acute ST-T changes. IMPRESSION: Perforated colon with peritonitis, diverticulitis, diverticulosis, status post surgery and colostomy, uncontrolled hyperglycemia. PLAN: As ordered. Case and plan discussed with pen tester and Surgery. Migue Wells MD
[2017-03-01] MEDS: Lactated Ringer's 1,000 ML IV SCH (20:00)
[2017-03-01] MEDS: HYDROmorphone 0.5 mg/0.5 ml ISec IVP PRN (20:23)
--- NOTE | 2017-03-01 22:45 | PN ---
DATE OF SERVICE: 03/01/2017 LOCATION: The patient is in ICU, bed #425. TIME SPENT: 50 minutes. SUBJECTIVE: The patient is seen and evaluated at the bedside. Events since admission were reviewed. This is an 89-year-old female with past medical history of diverticulitis, CHF, chronic back pain, glaucoma, admitted through ED, complaining of abdominal pain. CT abdomen and pelvis showed free air under the diaphragm, free air throughout the abdomen and pelvis, small bronchiolar air identified with intense inflammatory changes in the left lower quadrant and pelvis. The patient was seen by Surgery consult, underwent exploratory laparotomy, Kandis procedure, and diverting colostomy, postop extubated in ICU, noted to be confused, pulling on the NG tube and the Laguna catheter, needed restraints overnight, on IV fluid. Blood loss 50 mL, NG tube 150, and urine output 195; otherwise, uneventful overnight. This morning, alert, awake, off restraints, remains confused, but alert and awake, able to follow commands. PHYSICAL EXAMINATION: VITAL SIGNS: Temperature 98.6, heart rate 94 and regular, blood pressure 90 to 113 over 60 to 283, respiratory rate 18, thoracoabdominal, saturating 100% on oxygen supplement, 2 liters per nasal cannula, intake 2800, output 1145, positive balance 1655, gastric drainage 200 mL, urine output 745, weight 105 pounds. HEAD, EYES, EARS, NOSE, AND THROAT: Pupils are reactive. Conjunctivae pink. Sclerae white. Trachea central. NECK: Supple. CHEST: Bilateral breath sounds. Diminished in intensity. Clear to auscultation. HEART: Rhythm regular, S1 and S2 normal intensity. ABDOMEN: Bowel sounds present, soft, colostomy functioning. EXTREMITIES: Trace edema. Peripheral pulses intact. SKIN: Without rash. NEUROLOGIC: Remains confused but arousable. CURRENT MEDICATIONS: Zosyn 3.375 g IV q. 6, Ringer's lactate at 100 mL per hour, Zofran 4 mg IV q. 4 p.r.n. for nausea and vomiting, Dilaudid 0.25 mg IV p.r.n. for moderate pain, Pepcid 20 mg IV q. 12. LABORATORY DATA: WBC 11.8, hemoglobin 11.6, hematocrit 34.2, platelet count 209, neutrophils 91.7, lymphocytes 4.4, monocytes 3.8, PT 13.8, INR 1.3, PTT 24. SMA-7, sodium 135, potassium 4.1, chloride 101, CO2 24, blood urea nitrogen 22, creatinine 0.7, random glucose 148, calcium 8, total bilirubin 1, AST 24, ALT 30, alkaline phosphatase 48, total protein 5.8, albumin 2.9, lipase 25. Urinalysis, leukocyte esterase negative, wbc less than 1, rbc 9. Digoxin level of 0.6. IMPRESSION AND PLAN: 1. Gastroenterology: Admitted with perforated diverticulitis, status post Kandis procedure with colostomy with liquid stool. Nasogastric tube intact with draining about 200 brownish fluid. Maintain nothing by mouth. Continue Zofran and gastrointestinal prophylaxis. 2. Neurologic: Remains confused postoperatively, associated with medications. 3. Septic encephalopathy. 4. Cardiac: No arrhythmias noted. Remains normotensive. 5. Pulmonary. Postoperative atelectasis. 6. Infectious disease: Peritonitis secondary to perforated diverticulitis, currently Zosyn 3.375 g. Follow intraoperative fluid Gram stain and culture as it becomes available. 7. Renal: Remains stable with adequate urine output. 8. Endocrine. Maintain blood sugar less than 180. 9. Once cleared by Surgery, start on deep vein thrombosis prophylaxis with Lovenox 40 subcutaneously daily. Keep head of bed at 30 degree. Monitor for further agitation. Rc Mejia MD
[2017-03-02] MEDS: Piperacillin/Tazobact 3.375 GM in Sodium Chloride 0.9% 100 ML IVPB SCH ×4 (03:06→21:30)
[2017-03-02] MEDS: HYDROmorphone 0.5 mg/0.5 ml ISec IVP PRN ×3 (05:00→18:24)
[2017-03-02 05:16] LABS: HEMATOCRIT 25.5 % (34.0-47.0); MEAN CELL VOLUME 95.1 fl (81.0-99.0); MEAN CORPUSCULAR HEMOGLOBIN 31.7 pg (27.0-31.0); MEAN CORPUSCULAR HGB CONC 33.3 g/dL (33.0-37.0); RED CELL DISTRIBUTION WIDTH 15.2 % (11.5-14.5); WHITE BLOOD COUNT 12.4 K/uL (4.8-10.8)
[2017-03-02 05:25] LABS: ALB/GLOB RATIO 0.9 (1.0-2.1); ALKALINE PHOSPHATASE 45 U/L (38-126); ALT/SGPT 29 U/L (9-52); AST/SGOT 42 U/L (14-36); BILIRUBIN,TOTAL 0.8 mg/dl (0.2-1.3); BLOOD UREA NITROGEN 18 mg/dl (7-17); CALCIUM 7.4 mg/dL (8.4-10.2); CARBON DIOXIDE 23 mmol/L (22-30); CHLORIDE 107 mmol/L (98-107); GFR AFRICAN-AMERICAN > 60; GLUCOSE,RANDOM 74 mg/dL (65-105); SODIUM 136 mmol/l (132-148); TOTAL PROTEIN 5.2 G/DL (6.3-8.2)
[2017-03-02 05:32] LABS: POTASSIUM 4.4 MMOL/L (3.6-5.0)
[2017-03-02] MEDS: Lactated Ringer's 1,000 ML IV SCH ×2 (05:32→18:31)
--- NOTE | 2017-03-02 07:08 | CP.PCM.PN ---
Subjective - Date & Time of Evaluation Date of Evaluation: 03/02/17 Time of Evaluation: 06:50 - Subjective Subjective: General Surgery Progress Note for Dr. Kaba Patient seen and examined at bedside. Patient pulled NGT out overnight. She is not experiencing abdominal pain but complaining of rib and back pain. Hgb dropped, will repeat CBC to confirm. Laguna w/ 300cc clear yellow urine. Denies fever/chills, cp, sob, n/v/d. Objective - Vital Signs/Intake and Output Vital Signs (last 24 hours): Temp Pulse Resp BP Pulse Ox 98.3 F 63 13 106/63 98 03/02/17 04:00 03/02/17 06:00 03/02/17 06:00 03/02/17 06:00 03/02/17 06:00 Intake and Output: 03/02/17 03/02/17 06:59 18:59 Intake Total 1200 Output Total 302 Balance 898 - Medications Medications: Current Medications Famotidine (Pepcid) 20 mg IVP Q12 [facility] Last Admin: 03/01/17 20:16 Dose: 20 mg Hydromorphone HCl (Dilaudid) 0.25 mg IVP Q4 PRN PRN Reason: Pain, moderate (4-7) Last Admin: 03/02/17 05:00 Dose: 0.25 mg Lactated Ringer's (Lactated Ringer's) 1,000 mls @ 100 mls/hr IV .Q10H [facility] Last Admin: 03/02/17 05:32 Dose: 100 mls/hr Piperacillin Sod/Tazobactam (Sod 3.375 gm/ Sodium Chloride) 100 mls @ 100 mls/ hr IVPB Q6 [facility] Last Admin: 03/02/17 03:06 Dose: 100 mls/hr Metoclopramide HCl (Reglan) 10 mg IVP Q8 [facility] Last Admin: 03/02/17 01:03 Dose: 10 mg Ondansetron HCl (Zofran Inj) 4 mg IVP Q4 PRN PRN Reason: Nausea/Vomiting Last Admin: 02/28/17 22:26 Dose: 4 mg - Labs Labs: 03/02/17 04:20 03/02/17 04:20 PT 13.8 Seconds (9.8-13.1) H 08/13/17 13:05 INR 1.3 (0.9-1.2) H 02/28/17 13:05 APTT 24.0 Seconds (25.6-37.1) L 02/28/17 13:05 - Constitutional Appears: No Acute Distress - Head Exam Head Exam: ATRAUMATIC, NORMOCEPHALIC - Eye Exam Eye Exam: Normal appearance - ENT Exam ENT Exam: Mucous Membranes Moist - Neck Exam Neck Exam: Full ROM - Respiratory Exam Respiratory Exam: NORMAL BREATHING PATTERN - Cardiovascular Exam Cardiovascular Exam: REGULAR RHYTHM - GI/Abdominal Exam GI & Abdominal Exam: Soft. absent: Distended, Firm, Guarding, Rigid, Tenderness , Rebound Additional comments: colostomy in LLQ pink and viable, no output yet Midline incision with haroldo - clean, dry, intact - Extremities Exam Extremities Exam: absent: Calf Tenderness - Neurological Exam Neurological Exam: Alert, Awake - Psychiatric Exam Psychiatric exam: Normal Affect, Normal Mood - Skin Skin Exam: Dry, Intact, Pallor, Warm Assessment and Plan - Assessment and Plan (Free Text) Plan: 89 F with perforated sigmoid diverticulitis, s/p Kandis's procedure POD #2 -Repeat CBC shows Hgb 9.7 -Monitor H/H, transfuse if necessary -Strict I's & O's -Continue IV Abx, Pain control, IVF -OOB to chair as tolerated -Physcial therapy and Incentive spirometry -Management as per ICU -Will HAROON Murillo PGY1
--- NOTE | 2017-03-02 08:34 | CP.CCUPN ---
<Ania Valentino - Last Filed: 03/02/17 14:57> CCU Subjective - Physician Review Subjective (Free Text): 03/02/17 8:00 AM Patient seen and examined bedside on POD#2, AAO x 3, breathing by NC. Patient reports cramp diffuse abdominal pain subsided with pain medication 2 hours ago. She denies nausea, vomiting, fever, chest pain, SOB. As per nurse patient is more oriented compared with yesterday. good urine output. tsang with clear urine 60 ml. CCU Objective - Vital Signs / Intake & Output Vital Signs (Last 4 hours): Vital Signs Temp Pulse Resp BP Pulse Ox 03/02/17 08:00 97.5 F L 73 18 102/56 L 98 03/02/17 06:00 63 13 106/63 98 Intake and Output (Last 8hrs): Intake & Output 03/01/17 03/02/17 03/02/17 22:59 06:59 14:59 Intake Total 1300 800 200 Output Total 572 200 Balance 728 600 200 Intake: IV 1100 700 200 Intake, Piggyback 200 100 Output: Gastric Amount 22 Stomach 22 Drainage 0 0 Left Lateral Abdomen 0 0 Urine 550 200 2-way Urethral 550 200 Other: # Bowel Movements 0 - Physical Exam Head: Positive for: Atraumatic, Normocephalic Conjunctiva: Positive for: Other (conjunctival pallor) Neck: Positive for: Normal Range of Motion Respiratory/Chest: Positive for: Clear to Auscultation. Negative for: Wheezes, Rales Cardiovascular: Positive for: Regular Rate and Rhythm Abdomen: Positive for: Other (hypoactive bowel sounds. Supraumbilical medial incision clear,dry,intact,stapples present. LUQ colostomy pattent, no bleeding.) . Negative for: Tenderness, Distention, Peritoneal Signs Upper Extremity: Positive for: Normal Inspection Lower Extremity: Positive for: Edema, Swelling (B/L pedal edema) Skin: Positive for: Warm, Dry, Pale Psychiatric: Positive for: Alert, Oriented x 3, Normal Mood - Medications Active Medications: Active Medications Generic Name Dose Route Start Last Admin Trade Name Freq PRN Reason Stop Dose Admin Famotidine 20 mg 02/28/17 22:15 03/01/17 20:16 Pepcid IVP 20 mg Q12 EMANI Administration Hydromorphone HCl 0.25 mg 02/28/17 22:13 03/02/17 05:00 Dilaudid IVP 0.25 mg Q4 PRN Administration Pain, moderate (4-7) Lactated Ringer's 1,000 mls @ 100 mls/hr 02/28/17 22:15 03/02/17 05:32 Lactated Ringer's IV 100 mls/hr .Q10H EMANI Administration Piperacillin Sod/Tazobactam 100 mls @ 100 mls/hr 02/28/17 22:03/02/17 03: 06 Sod 3.375 gm/ Sodium Chloride IVPB 100 mls/hr Q6 EMANI Administration Metoclopramide HCl 10 mg 03/02/17 01:00 03/02/17 01:03 Reglan IVP 10 mg Q8 EMANI Administration Ondansetron HCl 4 mg 02/28/17 22:15 02/28/17 22:26 Zofran Inj IVP 4 mg Q4 PRN Administration Nausea/Vomiting - Patient Studies Lab Studies: Lab Studies 03/02/17 03/02/17 03/01/17 Range/Units 04:20 04:20 07:51 WBC 12.4 H (4.8-10.8) K/uL RBC 2.68 L (3.80-5.20) Mil/uL Hgb 8.5 L D (12.0-16.0) g/dL Hct 25.5 L (34.0-47.0) % MCV 95.1 (81.0-99.0) fl MCH 31.7 H (27.0-31.0) pg MCHC 33.3 (33.0-37.0) g/dL RDW 15.2 H (11.5-14.5) % Plt Count 187 (130-400) K/uL Neutrophils % (Manual) (42-75) % Band Neutrophils % (0-2) % Lymphocytes % (Manual) (20-50) % Monocytes % (Manual) (0-10) % Platelet Estimate (NORMAL) Large Platelets Poikilocytosis (manual Anisocytosis (manual) Ovalocytes Sodium 136 (132-148) mmol/l Potassium 4.4 (3.6-5.0) MMOL/L Chloride 107 (98-107) mmol/L Carbon Dioxide 23 (22-30) mmol/L Anion Gap 10 (10-20) BUN 18 H (7-17) mg/dl Creatinine 0.6 L (0.7-1.2) mg/dL Est GFR ( Amer) > 60 Est GFR (Non-Af Amer) > 60 Random Glucose 74 (65-105) mg/dL Hemoglobin A1c 5.9 (4.2-6.5) % Calcium 7.4 L (8.4-10.2) mg/dL Total Bilirubin 0.8 (0.2-1.3) mg/dl AST 42 H D (14-36) U/L ALT 29 (9-52) U/L Alkaline Phosphatase 45 (38-126) U/L Total Protein 5.2 L (6.3-8.2) G/DL Albumin 2.4 L (3.5-5.0) g/dL Globulin 2.7 (2.2-3.9) gm/dL Albumin/Globulin Ratio 0.9 L (1.0-2.1) 03/01/17 Range/Units 07:40 WBC (4.8-10.8) K/uL RBC (3.80-5.20) Mil/uL Hgb (12.0-16.0) g/dL Hct (34.0-47.0) % MCV (81.0-99.0) fl MCH (27.0-31.0) pg MCHC (33.0-37.0) g/dL RDW (11.5-14.5) % Plt Count (130-400) K/uL Neutrophils % (Manual) 80 H (42-75) % Band Neutrophils % 8 H (0-2) % Lymphocytes % (Manual) 8 L (20-50) % Monocytes % (Manual) 4 (0-10) % Platelet Estimate Normal (NORMAL) Large Platelets Present Poikilocytosis (manual Slight Anisocytosis (manual) Slight Ovalocytes Slight Sodium (132-148) mmol/l Potassium (3.6-5.0) MMOL/L Chloride (98-107) mmol/L Carbon Dioxide (22-30) mmol/L Anion Gap (10-20) BUN (7-17) mg/dl Creatinine (0.7-1.2) mg/dL Est GFR ( Amer) Est GFR (Non-Af Amer) Random Glucose (65-105) mg/dL Hemoglobin A1c (4.2-6.5) % Calcium (8.4-10.2) mg/dL Total Bilirubin (0.2-1.3) mg/dl AST (14-36) U/L ALT (9-52) U/L Alkaline Phosphatase (38-126) U/L Total Protein (6.3-8.2) G/DL Albumin (3.5-5.0) g/dL Globulin (2.2-3.9) gm/dL Albumin/Globulin Ratio (1.0-2.1) Laboratory Results - last 24 hr 03/01/17 03/01/17 03/02/17 07:40 07:51 04:20 WBC 12.4 H RBC 2.68 L Hgb 8.5 L D Hct 25.5 L MCV 95.1 MCH 31.7 H MCHC 33.3 RDW 15.2 H Plt Count 187 Neutrophils % (Manual) 80 H Band Neutrophils % 8 H Lymphocytes % (Manual) 8 L Monocytes % (Manual) 4 Platelet Estimate Normal Large Platelets Present Poikilocytosis (manual Slight Anisocytosis (manual) Slight Ovalocytes Slight Sodium Potassium Chloride Carbon Dioxide Anion Gap BUN Creatinine Est GFR ( Amer) Est GFR (Non-Af Amer) Random Glucose Hemoglobin A1c 5.9 Calcium Total Bilirubin AST ALT Alkaline Phosphatase Total Protein Albumin Globulin Albumin/Globulin Ratio 03/02/17 04:20 WBC RBC Hgb Hct MCV MCH MCHC RDW Plt Count Neutrophils % (Manual) Band Neutrophils % Lymphocytes % (Manual) Monocytes % (Manual) Platelet Estimate Large Platelets Poikilocytosis (manual Anisocytosis (manual) Ovalocytes Sodium 136 Potassium 4.4 Chloride 107 Carbon Dioxide 23 Anion Gap 10 BUN 18 H Creatinine 0.6 L Est GFR ( Amer) > 60 Est GFR (Non-Af Amer) > 60 Random Glucose 74 Hemoglobin A1c Calcium 7.4 L Total Bilirubin 0.8 AST 42 H D ALT 29 Alkaline Phosphatase 45 Total Protein 5.2 L Albumin 2.4 L Globulin 2.7 Albumin/Globulin Ratio 0.9 L Fingerstick Blood Sugar Results: 249 Review of Systems - Cardiovascular Cardiovascular: absent: Chest Pain, Dyspnea - Respiratory Respiratory: absent: Cough, Dyspnea - Gastrointestinal Gastrointestinal: Abdominal Pain Critical Care Progress Note - Prophylaxis DVT Prophylaxis DVT: SCDs - Nutrition Nutrition: Nutrition Category Date Time Status Liquid Diet [DIET] Diets 08/15/17 Breakfast Active Assessment/Plan - Assessment and Plan (Free Text) Plan: 89 yo ,f, Pmhx/o OA, glaucoma, chronic constipation, Chronic Atrial Fibrillation presented to the ED c/o abdominal pain for the last 3 days associated with abdominal distention, nausea and 1 vomiting [employer]. She reports last BM 3 days ago.Denies fever, diarrhea, dysuria, and hematuria. Patient was admitted in ICU w/ perforated sigmoid diverticulitis, s/p Kandis's, POD #2 today Assessment/Plan 1) Perforated sigmoid diverticulitis.POD#2 -Harmon's procedure. colostomy -Continue IV Abx Zosyn q6h -Pain control Dilaudid -OOB to chair as able -PT/OT consult -speech evaluation appreciated: suggest liquid diet and pure for today -DC tsang -Liquid diet -Surgery consult appreciated -f/u CBc,CMP 2) Anemia -secondary to acute blood loss s/p surgery -Hgb: 9/7 s/p surgery -hemodynamically stable 3)Chronic Atrial Fibrillation -Controlled -ECG no atrial fibrillation -Metoprolol 100 mg Q12 -Digoxin hold -Lasix 40 mg qday hold -Digoxin levels 0.6 -Consider Beam Dyer consult 4) chronic Constipation -Miralax -Dicyclomine -As per patient using fleet enema qday 5) Glaucoma -Latanoprost 1 drop QHS 6) DVT prophylaxis -SCD <EmeryRai M - Last Filed: 03/02/17 16:49> CCU Objective - Vital Signs / Intake & Output Vital Signs (Last 4 hours): Vital Signs Temp Pulse Resp BP Pulse Ox 03/02/17 16:12 82 95 03/02/17 16:00 97.8 F 63 15 109/52 L 97 03/02/17 14:35 82 95 03/02/17 14:00 71 22 129/64 99 Intake and Output (Last 8hrs): Intake & Output 03/02/17 03/02/17 03/02/17 06:59 14:59 22:59 Intake Total 800 900 200 Output Total 200 100 Balance 600 800 200 Intake: IV 700 750 200 Intake, Piggyback 100 100 Oral 50 Output: Drainage 0 Left Lateral Abdomen 0 Urine 200 100 2-way Urethral 200 100 - Medications Active Medications: Active Medications Generic Name Dose Route Start Last Admin Trade Name Freq PRN Reason Stop Dose Admin Famotidine 20 mg 02/28/17 22:15 03/02/17 09:11 Pepcid IVP 20 mg Q12 EMANI Administration Hydromorphone HCl 0.25 mg 02/28/17 22:13 03/02/17 11:54 Dilaudid IVP 0.25 mg Q4 PRN Administration Pain, moderate (4-7) Lactated Ringer's 1,000 mls @ 100 mls/hr 02/28/17 22:15 03/02/17 05:32 Lactated Ringer's IV 100 mls/hr .Q10H EMANI Administration Piperacillin Sod/Tazobactam 100 mls @ 100 mls/hr 02/28/17 22:17 03/02/17 09: 08 Sod 3.375 gm/ Sodium Chloride IVPB 100 mls/hr Q6 EMANI Administration Metoclopramide HCl 10 mg 03/02/17 01:00 03/02/17 09:09 Reglan IVP 10 mg Q8 EMANI Administration Ondansetron HCl 4 mg 02/28/17 22:15 02/28/17 22:26 Zofran Inj IVP 4 mg Q4 PRN Administration Nausea/Vomiting - Patient Studies Lab Studies: Microbiology Studies 02/28/17 19:09 MRSA Culture (Admit) - Final Naris MRSA NOT DETECTED Lab Studies 03/02/17 03/02/17 03/02/17 Range/Units 08:45 04:20 04:20 WBC 11.8 H 12.4 H (4.8-10.8) K/uL RBC 3.03 L 2.68 L (3.80-5.20) Mil/uL Hgb 9.7 L 8.5 L D (12.0-16.0) g/dL Hct 28.8 L 25.5 L (34.0-47.0) % MCV 95.1 95.1 (81.0-99.0) fl MCH 31.9 H 31.7 H (27.0-31.0) pg MCHC 33.6 33.3 (33.0-37.0) g/dL RDW 15.3 H 15.2 H (11.5-14.5) % Plt Count 191 187 (130-400) K/uL Sodium 136 (132-148) mmol/l Potassium 4.4 (3.6-5.0) MMOL/L Chloride 107 (98-107) mmol/L Carbon Dioxide 23 (22-30) mmol/L Anion Gap 10 (10-20) BUN 18 H (7-17) mg/dl Creatinine 0.6 L (0.7-1.2) mg/dL Est GFR ( Amer) > 60 Est GFR (Non-Af Amer) > 60 Random Glucose 74 (65-105) mg/dL Calcium 7.4 L (8.4-10.2) mg/dL Total Bilirubin 0.8 (0.2-1.3) mg/dl AST 42 H D (14-36) U/L ALT 29 (9-52) U/L Alkaline Phosphatase 45 (38-126) U/L Total Protein 5.2 L (6.3-8.2) G/DL Albumin 2.4 L (3.5-5.0) g/dL Globulin 2.7 (2.2-3.9) gm/dL Albumin/Globulin Ratio 0.9 L (1.0-2.1) Laboratory Results - last 24 hr 03/02/17 03/02/17 03/02/17 04:20 04:20 08:45 WBC 12.4 H 11.8 H RBC 2.68 L 3.03 L Hgb 8.5 L D 9.7 L Hct 25.5 L 28.8 L MCV 95.1 95.1 MCH 31.7 H 31.9 H MCHC 33.3 33.6 RDW 15.2 H 15.3 H Plt Count 187 191 Sodium 136 Potassium 4.4 Chloride 107 Carbon Dioxide 23 Anion Gap 10 BUN 18 H Creatinine 0.6 L Est GFR ( Amer) > 60 Est GFR (Non-Af Amer) > 60 Random Glucose 74 Calcium 7.4 L Total Bilirubin 0.8 AST 42 H D ALT 29 Alkaline Phosphatase 45 Total Protein 5.2 L Albumin 2.4 L Globulin 2.7 Albumin/Globulin Ratio 0.9 L Critical Care Progress Note - Nutrition Nutrition: Nutrition Category Date Time Status Liquid Diet [DIET] Diets 03/02/17 Breakfast Active Attending/Attestation - Attestation I have personally seen and examined this patient.: Yes I have fully participated in the care of the patient.: Yes I have reviewed all pertinent clinical information: Yes Notes (Text): 03/02/17 Today: Thursday, March 02, 2017 The patient was Seen/interviewed and examined by me at the bedside during ICU round, Medical records reviewed and Management issues were discussed and formulated with the house staff. I have reviewed all the relevant clinical, laboratory, hemodynamic, radiographic data and medications I concur with resident's assessment and plan of care as transcribed in Dr. Valentino Note.
[2017-03-02 09:33] LABS: HEMATOCRIT 28.8 % (34.0-47.0); MEAN CELL VOLUME 95.1 fl (81.0-99.0); MEAN CORPUSCULAR HEMOGLOBIN 31.9 pg (27.0-31.0); MEAN CORPUSCULAR HGB CONC 33.6 g/dL (33.0-37.0); RED CELL DISTRIBUTION WIDTH 15.3 % (11.5-14.5); WHITE BLOOD COUNT 11.8 K/uL (4.8-10.8)
--- NOTE | 2017-03-02 19:22 | CP.PCM.PN ---
<Bonita Aguila - Last Filed: 03/02/17 19:19> Subjective - Date & Time of Evaluation Date of Evaluation: 03/02/17 Time of Evaluation: 07:15 - Subjective Subjective: patient seen and examined with attending patient still c/o diffuse abdominal pain, but controlled with medications afebrile uneventful night Objective - Vital Signs/Intake and Output Vital Signs (last 24 hours): Temp Pulse Resp BP Pulse Ox 97.8 F 71 18 140/74 98 03/02/17 16:00 03/02/17 18:00 03/02/17 18:00 03/02/17 18:00 03/02/17 18:00 Intake and Output: 03/02/17 03/03/17 18:59 06:59 Intake Total 1350 Output Total 300 Balance 1050 - Medications Medications: Current Medications Famotidine (Pepcid) 20 mg IVP Q12 [facility] Last Admin: 03/02/17 09:11 Dose: 20 mg Hydromorphone HCl (Dilaudid) 0.25 mg IVP Q4 PRN PRN Reason: Pain, moderate (4-7) Last Admin: 03/02/17 18:24 Dose: 0.25 mg Lactated Ringer's (Lactated Ringer's) 1,000 mls @ 100 mls/hr IV .Q10H [facility] Last Admin: 03/02/17 18:31 Dose: 100 mls/hr Piperacillin Sod/Tazobactam (Sod 3.375 gm/ Sodium Chloride) 100 mls @ 100 mls/ hr IVPB Q6 [facility] Last Admin: 03/02/17 16:53 Dose: 100 mls/hr Metoclopramide HCl (Reglan) 10 mg IVP Q8 [facility] Last Admin: 03/02/17 18:32 Dose: 10 mg Ondansetron HCl (Zofran Inj) 4 mg IVP Q4 PRN PRN Reason: Nausea/Vomiting Last Admin: 02/28/17 22:26 Dose: 4 mg - Labs Labs: 03/02/17 08:45 03/02/17 04:20 PT 13.8 Seconds (9.8-13.1) H 02/28/17 13:05 INR 1.3 (0.9-1.2) H 02/28/17 13:05 APTT 24.0 Seconds (25.6-37.1) L 02/28/17 13:05 - Constitutional Appears: No Acute Distress - ENT Exam ENT Exam: Mucous Membranes Moist - Respiratory Exam Respiratory Exam: Clear to Ausculation Bilateral, NORMAL BREATHING PATTERN - Cardiovascular Exam Cardiovascular Exam: REGULAR RHYTHM, +S1, +S2 - GI/Abdominal Exam GI & Abdominal Exam: Soft, Normal Bowel Sounds. absent: Guarding, Rigid, Tenderness, Rebound Additional comments: colostomy in LLQ pink and viable, no output yet Midline incision with haroldo - clean, dry, intact - Extremities Exam Extremities Exam: Pedal Edema (bilateral LE edema pitting 2+, SCDs in placed). absent: Calf Tenderness - Neurological Exam Neurological Exam: Alert, Awake, Oriented x3 - Skin Skin Exam: Dry, Intact, Pallor Assessment and Plan - Assessment and Plan (Free Text) Assessment: 89 F with perforated sigmoid diverticulitis, s/p Kandis's procedure POD #2 Plan: Perforated sigmoid diverticulitis, s/p Kandis's, POD #2 ICU - CBC today shows Hgb 9.7 -Monitor H/H, consider transfusion if necessary -c/w Strict I's & O's -Continue IV Abx, Pain control, IVF -OOB to chair as tolerated -Physcial therapy and Incentive spirometry -F/U surgical team recommendations Anemia -secondary to acute blood loss s/p surgery -Hgb: 9/7 s/p surgery -hemodynamically stable DVT prophylaxis SCDs <Wells,Migue K - Last Filed: 03/16/17 16:47> Objective - Vital Signs/Intake and Output Vital Signs (last 24 hours): Temp Pulse Resp BP Pulse Ox 98.4 F 74 20 120/66 96 03/08/17 08:01 03/08/17 08:01 03/08/17 08:01 03/08/17 08:01 03/08/17 08:01 - Labs Labs: 03/08/17 06:30 03/08/17 06:30 PT 13.8 Seconds (9.8-13.1) H 02/28/17 13:05 INR 1.3 (0.9-1.2) H 02/28/17 13:05 APTT 24.0 Seconds (25.6-37.1) L 02/28/17 13:05 Assessment and Plan - Assessment and Plan (Free Text) Assessment: Patient was personally seen and examined by me in rounds with residents. Available labs and diagnostic data reviewed. Case, Patient's condition and management plan Discussed with residents in rounds. Agree with resident's progress note. Plan: As ordered.
[2017-03-02] MEDS ORDERED: Lactated Ringer's 1,000 ML IV SCH (19:23)
[2017-03-03] MEDS: HYDROmorphone 0.5 mg/0.5 ml ISec IVP PRN (00:31)
[2017-03-03] MEDS: Piperacillin/Tazobact 3.375 GM in Sodium Chloride 0.9% 100 ML IVPB SCH ×4 (03:59→21:02)
[2017-03-03 05:47] LABS: HEMATOCRIT 34.8 % (34.0-47.0); MEAN CORPUSCULAR HEMOGLOBIN 31.9 pg (27.0-31.0); MEAN CORPUSCULAR HGB CONC 33.9 g/dL (33.0-37.0); WHITE BLOOD COUNT 10.9 K/uL (4.8-10.8)
[2017-03-03 05:54] LABS: ALKALINE PHOSPHATASE 70 U/L (38-126); ALT/SGPT 45 U/L (9-52); AST/SGOT 40 U/L (14-36); BILIRUBIN,TOTAL 0.8 mg/dl (0.2-1.3); BLOOD UREA NITROGEN 15 mg/dl (7-17); CALCIUM 8.3 mg/dL (8.4-10.2); CARBON DIOXIDE 23 mmol/L (22-30); CHLORIDE 103 mmol/L (98-107); GFR AFRICAN-AMERICAN > 60; GLUCOSE,RANDOM 75 mg/dL (65-105); POTASSIUM 4.3 MMOL/L (3.6-5.0); SODIUM 136 mmol/l (132-148); TOTAL PROTEIN 6.4 G/DL (6.3-8.2)
--- NOTE | 2017-03-03 07:12 | CP.PCM.PN ---
Subjective - Date & Time of Evaluation Date of Evaluation: 03/03/17 Time of Evaluation: 06:40 - Subjective Subjective: General Surgery Progress Note for Dr. Kaba Patient seen and examined at bedside. No acute event overnight. Patient sleeping in bed comfortably. Patient states no complaints, she just wants to sleep. Denies fever/chills, cp, sob, n/v/d. Objective - Vital Signs/Intake and Output Vital Signs (last 24 hours): Temp Pulse Resp BP Pulse Ox 98.4 F 65 16 130/74 96 03/03/17 04:00 03/03/17 06:00 03/03/17 06:00 03/03/17 06:00 03/03/17 06:00 Intake and Output: 03/03/17 03/03/17 06:59 18:59 Intake Total 870 Output Total 350 Balance 520 - Medications Medications: Current Medications Famotidine (Pepcid) 20 mg IVP Q12 [facility] Last Admin: 03/02/17 21:30 Dose: 20 mg Hydromorphone HCl (Dilaudid) 0.25 mg IVP Q4 PRN PRN Reason: Pain, moderate (4-7) Last Admin: 03/03/17 00:31 Dose: 0.25 mg Piperacillin Sod/Tazobactam (Sod 3.375 gm/ Sodium Chloride) 100 mls @ 100 mls/ hr IVPB Q6 EMANI Last Admin: 03/03/17 03:59 Dose: 100 mls/hr Lactated Ringer's (Lactated Ringer's) 1,000 mls @ 50 mls/hr IV .Q20H [facility] Last Admin: 03/02/17 20:00 Dose: 50 mls/hr Metoclopramide HCl (Reglan) 10 mg IVP Q8 EMANI Last Admin: 03/03/17 00:31 Dose: 10 mg Ondansetron HCl (Zofran Inj) 4 mg IVP Q4 PRN PRN Reason: Nausea/Vomiting Last Admin: 02/28/17 22:26 Dose: 4 mg - Labs Labs: 03/03/17 04:50 03/03/17 04:50 PT 13.8 Seconds (9.8-13.1) H 02/28/17 13:05 INR 1.3 (0.9-1.2) H 02/28/17 13:05 APTT 24.0 Seconds (25.6-37.1) L 02/28/17 13:05 - Constitutional Appears: No Acute Distress - Head Exam Head Exam: ATRAUMATIC, NORMOCEPHALIC - Eye Exam Eye Exam: Normal appearance - ENT Exam ENT Exam: Mucous Membranes Moist - Neck Exam Neck Exam: Full ROM - Respiratory Exam Respiratory Exam: NORMAL BREATHING PATTERN - Cardiovascular Exam Cardiovascular Exam: REGULAR RHYTHM - GI/Abdominal Exam GI & Abdominal Exam: Soft, Tenderness (at incision). absent: Distended, Firm, Guarding, Rigid, Rebound Additional comments: colostomy in LLQ pink and patent without output Midline incision with haroldo has minimal drainage - Extremities Exam Extremities Exam: absent: Calf Tenderness - Neurological Exam Neurological Exam: Alert, Awake - Psychiatric Exam Psychiatric exam: Normal Affect, Normal Mood - Skin Skin Exam: Dry, Intact, Normal Color, Warm Assessment and Plan - Assessment and Plan (Free Text) Plan: 89 F with perforated sigmoid diverticulitis, s/p Kandis's procedure POD #3 -hgb 11.6 today -Monitor H/H -Strict I's & O's -Continue IV Abx, Pain control, IVF -OOB to chair as tolerated -Physcial therapy and Incentive spirometry -Management as per ICU -Will HAROON Murillo PGY1
--- NOTE | 2017-03-03 08:33 | CP.PCM.PN ---
<Bonita Aguila - Last Filed: 03/03/17 11:59> Subjective - Date & Time of Evaluation Date of Evaluation: 03/03/17 Time of Evaluation: 07:35 - Subjective Subjective: patient seen and examined in ICU with attending Afebrile, and stable vital signs Tolerating PO liquid diet no events overnight Objective - Vital Signs/Intake and Output Vital Signs (last 24 hours): Temp Pulse Resp BP Pulse Ox 98.4 F 68 15 104/59 L 97 03/03/17 08:00 03/03/17 08:00 03/03/17 08:00 03/03/17 08:00 03/03/17 08:00 Intake and Output: 03/03/17 03/03/17 06:59 18:59 Intake Total 870 100 Output Total 350 Balance 520 100 - Medications Medications: Current Medications Famotidine (Pepcid) 20 mg IVP Q12 [facility] Last Admin: 03/03/17 08:28 Dose: 20 mg Hydromorphone HCl (Dilaudid) 0.25 mg IVP Q4 PRN PRN Reason: Pain, moderate (4-7) Last Admin: 03/03/17 00:31 Dose: 0.25 mg Piperacillin Sod/Tazobactam (Sod 3.375 gm/ Sodium Chloride) 100 mls @ 100 mls/ hr IVPB Q6 EMANI Last Admin: 03/03/17 03:59 Dose: 100 mls/hr Metoclopramide HCl (Reglan) 10 mg IVP Q8 [facility] Last Admin: 03/03/17 08:28 Dose: 10 mg Ondansetron HCl (Zofran Inj) 4 mg IVP Q4 PRN PRN Reason: Nausea/Vomiting Last Admin: 02/28/17 22:26 Dose: 4 mg - Labs Labs: 03/03/17 04:50 03/03/17 04:50 PT 13.8 Seconds (9.8-13.1) H 02/28/17 13:05 INR 1.3 (0.9-1.2) H 02/28/17 13:05 APTT 24.0 Seconds (25.6-37.1) L 02/28/17 13:05 - Additional Findings Additional findings: Constitutional Appears: No Acute Distress - ENT Exam ENT Exam: Mucous Membranes Moist - Respiratory Exam Respiratory Exam: Clear to Ausculation Bilateral, NORMAL BREATHING PATTERN - Cardiovascular Exam Cardiovascular Exam: REGULAR RHYTHM, +S1, +S2 - GI/Abdominal Exam GI & Abdominal Exam: Soft, Normal Bowel Sounds. absent: Guarding, Rigid, Tenderness, Rebound Additional comments: colostomy in LLQ pink and viable, no output yet Midline incision with haroldo - clean, dry, intact - Extremities Exam Extremities Exam: Pedal Edema (bilateral LE edema pitting 2+, SCDs in placed). absent: Calf Tenderness - Neurological Exam Neurological Exam: Alert, Awake, Oriented x3 - Skin Skin Exam: Dry, Intact, Pallor Assessment and Plan - Assessment and Plan (Free Text) Assessment: 89 F with perforated sigmoid diverticulitis, s/p Kandis's procedure POD #3 Plan: Perforated sigmoid diverticulitis, s/p Kandis's, POD #2 ICU -Afebrile -CBC : mild leucocytosis, but trending down to 10.9 -H/H: 11.8/34.8, c/w H/H monitoring -c/w Strict I's & O's -Continue IV Abx: Zosyn, Pain control, IVF -OOB to chair as tolerated -Physcial therapy and Incentive spirometry -F/U surgical team recommendations -consider transfer to [facility] today Anemia improving -secondary to acute blood loss s/p surgery -Hgb:11.8 today -hemodynamically stable DVT prophylaxis SCDs <Wells,Migue K - Last Filed: 03/16/17 16:49> Objective - Vital Signs/Intake and Output Vital Signs (last 24 hours): Temp Pulse Resp BP Pulse Ox 98.4 F 74 20 120/66 96 03/08/17 08:01 03/08/17 08:01 03/08/17 08:01 03/08/17 08:01 03/08/17 08:01 - Labs Labs: 03/08/17 06:30 03/08/17 06:30 PT 13.8 Seconds (9.8-13.1) H 02/28/17 13:05 INR 1.3 (0.9-1.2) H 02/28/17 13:05 APTT 24.0 Seconds (25.6-37.1) L 02/28/17 13:05 Assessment and Plan - Assessment and Plan (Free Text) Assessment: Patient was personally seen and examined by me in rounds with residents. Available labs and diagnostic data reviewed. Case, Patient's condition and management plan Discussed with residents in rounds. Agree with resident's progress note. Plan: As ordered.
--- NOTE | 2017-03-03 08:47 | CP.CCUPN ---
<Ania Valentino - Last Filed: 03/03/17 11:42> CCU Subjective - Physician Review Subjective (Free Text): 03/03/17 8:00 AM Patient seen and examined bedside with relative present(caregiver). Patient awake, alert, oriented x2 breathing room air. Patient reports diffuse abdominal pain 8/10 in intensity and states pain is controlled with meds. She denies nausea, vomiting. tolerating liquid diet. left colostomy with CCU Objective - Vital Signs / Intake & Output Vital Signs (Last 4 hours): Vital Signs Temp Pulse Resp BP Pulse Ox 03/03/17 08:00 98.4 F 68 15 104/59 L 97 03/03/17 06:00 65 16 130/74 96 Intake and Output (Last 8hrs): Intake & Output 03/02/17 03/03/17 03/03/17 22:59 06:59 14:59 Intake Total 870 450 100 Output Total 400 150 300 Balance 470 300 -200 Intake: IV 550 350 Intake, Piggyback 200 100 100 Oral 120 Output: Drainage 0 0 Left Lateral Abdomen 0 0 Urine 400 150 300 2-way Urethral 200 Urine, Voided 200 150 300 Other: # Voids 2-way Urethral 1 - Physical Exam Head: Positive for: Atraumatic, Normocephalic Conjunctiva: Positive for: Other (conjunctival pallor) Neck: Positive for: Normal Range of Motion Respiratory/Chest: Positive for: Clear to Auscultation. Negative for: Wheezes, Rales Cardiovascular: Positive for: Regular Rate and Rhythm Abdomen: Positive for: Other (hypoactive bowel sounds. Supraumbilical medial incision clear,dry,intact,stapples present. LUQ colostomy pattent, no bleeding.) . Negative for: Tenderness, Distention, Peritoneal Signs Upper Extremity: Positive for: Normal Inspection Lower Extremity: Positive for: Edema, Swelling (B/L pedal edema) Skin: Positive for: Warm, Dry, Pale Psychiatric: Positive for: Alert, Oriented x 3, Normal Mood - Medications Active Medications: Active Medications Generic Name Dose Route Start Last Admin Trade Name Freq PRN Reason Stop Dose Admin Famotidine 20 mg 02/28/17 22:15 03/03/17 08:28 Pepcid IVP 20 mg Q12 EMANI Administration Hydromorphone HCl 0.25 mg 02/28/17 22:13 03/03/17 00:31 Dilaudid IVP 0.25 mg Q4 PRN Administration Pain, moderate (4-7) Piperacillin Sod/Tazobactam 100 mls @ 100 mls/hr 02/28/17 22:17 03/03/17 03: 59 Sod 3.375 gm/ Sodium Chloride IVPB 100 mls/hr Q6 EMANI Administration Metoclopramide HCl 10 mg 03/02/17 01:00 03/03/17 08:28 Reglan IVP 10 mg Q8 EMANI Administration Ondansetron HCl 4 mg 02/28/17 22:15 02/28/17 22:26 Zofran Inj IVP 4 mg Q4 PRN Administration Nausea/Vomiting - Patient Studies Lab Studies: Microbiology Studies 02/28/17 19:09 MRSA Culture (Admit) - Final Naris MRSA NOT DETECTED Lab Studies 03/03/17 03/03/17 03/02/17 Range/Units 04:50 04:50 08:45 WBC 10.9 H 11.8 H (4.8-10.8) K/uL RBC 3.70 L 3.03 L (3.80-5.20) Mil/uL Hgb 11.8 L D 9.7 L (12.0-16.0) g/dL Hct 34.8 28.8 L (34.0-47.0) % MCV 94.0 95.1 (81.0-99.0) fl MCH 31.9 H 31.9 H (27.0-31.0) pg MCHC 33.9 33.6 (33.0-37.0) g/dL RDW 15.0 H 15.3 H (11.5-14.5) % Plt Count 256 191 (130-400) K/uL Sodium 136 (132-148) mmol/l Potassium 4.3 (3.6-5.0) MMOL/L Chloride 103 (98-107) mmol/L Carbon Dioxide 23 (22-30) mmol/L Anion Gap 14 (10-20) BUN 15 (7-17) mg/dl Creatinine 0.7 (0.7-1.2) mg/dL Est GFR ( Amer) > 60 Est GFR (Non-Af Amer) > 60 Random Glucose 75 (65-105) mg/dL Calcium 8.3 L (8.4-10.2) mg/dL Total Bilirubin 0.8 (0.2-1.3) mg/dl AST 40 H (14-36) U/L ALT 45 (9-52) U/L Alkaline Phosphatase 70 (38-126) U/L Total Protein 6.4 (6.3-8.2) G/DL Albumin 3.2 L D (3.5-5.0) g/dL Globulin 3.2 (2.2-3.9) gm/dL Albumin/Globulin Ratio 1.0 (1.0-2.1) Crossmatch 02/28/17 Range/Units 16:56 WBC (4.8-10.8) K/uL RBC (3.80-5.20) Mil/uL Hgb (12.0-16.0) g/dL Hct (34.0-47.0) % MCV (81.0-99.0) fl MCH (27.0-31.0) pg MCHC (33.0-37.0) g/dL RDW (11.5-14.5) % Plt Count (130-400) K/uL Sodium (132-148) mmol/l Potassium (3.6-5.0) MMOL/L Chloride (98-107) mmol/L Carbon Dioxide (22-30) mmol/L Anion Gap (10-20) BUN (7-17) mg/dl Creatinine (0.7-1.2) mg/dL Est GFR ( Amer) Est GFR (Non-Af Amer) Random Glucose (65-105) mg/dL Calcium (8.4-10.2) mg/dL Total Bilirubin (0.2-1.3) mg/dl AST (14-36) U/L ALT (9-52) U/L Alkaline Phosphatase (38-126) U/L Total Protein (6.3-8.2) G/DL Albumin (3.5-5.0) g/dL Globulin (2.2-3.9) gm/dL Albumin/Globulin Ratio (1.0-2.1) Crossmatch See Detail Laboratory Results - last 24 hr 02/28/17 03/02/17 03/03/17 16:56 08:45 04:50 WBC 11.8 H 10.9 H RBC 3.03 L 3.70 L Hgb 9.7 L 11.8 L D Hct 28.8 L 34.8 MCV 95.1 94.0 MCH 31.9 H 31.9 H MCHC 33.6 33.9 RDW 15.3 H 15.0 H Plt Count 191 256 Sodium Potassium Chloride Carbon Dioxide Anion Gap BUN Creatinine Est GFR ( Amer) Est GFR (Non-Af Amer) Random Glucose Calcium Total Bilirubin AST ALT Alkaline Phosphatase Total Protein Albumin Globulin Albumin/Globulin Ratio Crossmatch See Detail 03/03/17 04:50 WBC RBC Hgb Hct MCV MCH MCHC RDW Plt Count Sodium 136 Potassium 4.3 Chloride 103 Carbon Dioxide 23 Anion Gap 14 BUN 15 Creatinine 0.7 Est GFR ( Amer) > 60 Est GFR (Non-Af Amer) > 60 Random Glucose 75 Calcium 8.3 L Total Bilirubin 0.8 AST 40 H ALT 45 Alkaline Phosphatase 70 Total Protein 6.4 Albumin 3.2 L D Globulin 3.2 Albumin/Globulin Ratio 1.0 Crossmatch Fingerstick Blood Sugar Results: 249 Review of Systems - Cardiovascular Cardiovascular: UNREMARKABLE - Gastrointestinal Gastrointestinal: Abdominal Pain - Genitourinary Genitourinary: UNREMARKABLE - Musculoskeletal Musculoskeletal: UNREMARKABLE Assessment/Plan - Assessment and Plan (Free Text) Plan: 89 yo ,f, Pmhx/o OA, glaucoma, chronic constipation, Chronic Atrial Fibrillation presented to the ED c/o abdominal pain for the last 3 days associated with abdominal distention, nausea and 1 vomiting [employer]. She reports last BM 3 days ago.Denies fever, diarrhea, dysuria, and hematuria. Patient was admitted in ICU w/ perforated sigmoid diverticulitis, s/p Kandis's, POD #2 today Assessment/Plan 1) Perforated sigmoid diverticulitis.POD#3 -Harmon's procedure. colostomy -Continue IV Abx Zosyn q6h -Pain control Dilaudid -OOB to chair as able -PT/OT consult appreciated -speech evaluation appreciated: suggest liquid diet and pure for today -DC tsang -Liquid diet -Surgery consult appreciated -f/u CBc,CMP 2) Anemia -secondary to acute blood loss s/p surgery -Hgb: 9/7 s/p surgery.hgb:11.8 today -hemodynamically stable 3)Chronic Atrial Fibrillation -Controlled -ECG no atrial fibrillation -Metoprolol 100 mg Q12 -Digoxin hold -Lasix 40 mg qday hold -Digoxin levels 0.6 -Consider Functional Mental Disability Teacher consult 4) chronic Constipation -Miralax -Dicyclomine -As per patient using fleet enema qday 5) Glaucoma -Latanoprost 1 drop QHS 6) DVT prophylaxis -SCD <LatefRai - Last Filed: 03/03/17 14:23> CCU Objective - Vital Signs / Intake & Output Vital Signs (Last 4 hours): Vital Signs Temp Pulse Resp BP Pulse Ox 03/03/17 12:00 97.4 F L 70 23 132/76 100 Intake and Output (Last 8hrs): Intake & Output 03/02/17 03/03/17 03/03/17 22:59 06:59 14:59 Intake Total 870 450 100 Output Total 400 150 800 Balance 470 300 -700 Intake: IV 550 350 Intake, Piggyback 200 100 100 Oral 120 Output: Drainage 0 0 Left Lateral Abdomen 0 0 Urine 400 150 800 2-way Urethral 200 Urine, Voided 200 150 800 Other: # Voids 2-way Urethral 1 - Medications Active Medications: Active Medications Generic Name Dose Route Start Last Admin Trade Name Freq PRN Reason Stop Dose Admin Famotidine 20 mg 03/03/17 21:00 Pepcid IVP Q12 EMANI Hydromorphone HCl 0.25 mg 03/03/17 11:52 Dilaudid IVP Q4 PRN Pain, moderate (4-7) Piperacillin Sod/Tazobactam 100 mls @ 100 mls/hr 03/03/17 16:00 Sod 3.375 gm/ Sodium Chloride IVPB Q6 EMANI Metoclopramide HCl 10 mg 03/03/17 17:00 Reglan IVP Q8 EMANI Ondansetron HCl 4 mg 03/03/17 11:52 Zofran Inj IVP Q4 PRN Nausea/Vomiting - Patient Studies Lab Studies: Lab Studies 03/03/17 03/03/17 02/28/17 Range/Units 04:50 04:50 16:56 WBC 10.9 H (4.8-10.8) K/uL RBC 3.70 L (3.80-5.20) Mil/uL Hgb 11.8 L D (12.0-16.0) g/dL Hct 34.8 (34.0-47.0) % MCV 94.0 (81.0-99.0) fl MCH 31.9 H (27.0-31.0) pg MCHC 33.9 (33.0-37.0) g/dL RDW 15.0 H (11.5-14.5) % Plt Count 256 (130-400) K/uL Sodium 136 (132-148) mmol/l Potassium 4.3 (3.6-5.0) MMOL/L Chloride 103 (98-107) mmol/L Carbon Dioxide 23 (22-30) mmol/L Anion Gap 14 (10-20) BUN 15 (7-17) mg/dl Creatinine 0.7 (0.7-1.2) mg/dL Est GFR ( Amer) > 60 Est GFR (Non-Af Amer) > 60 Random Glucose 75 (65-105) mg/dL Calcium 8.3 L (8.4-10.2) mg/dL Total Bilirubin 0.8 (0.2-1.3) mg/dl AST 40 H (14-36) U/L ALT 45 (9-52) U/L Alkaline Phosphatase 70 (38-126) U/L Total Protein 6.4 (6.3-8.2) G/DL Albumin 3.2 L D (3.5-5.0) g/dL Globulin 3.2 (2.2-3.9) gm/dL Albumin/Globulin Ratio 1.0 (1.0-2.1) Crossmatch See Detail Laboratory Results - last 24 hr 02/28/17 03/03/17 03/03/17 16:56 04:50 04:50 WBC 10.9 H RBC 3.70 L Hgb 11.8 L D Hct 34.8 MCV 94.0 MCH 31.9 H MCHC 33.9 RDW 15.0 H Plt Count 256 Sodium 136 Potassium 4.3 Chloride 103 Carbon Dioxide 23 Anion Gap 14 BUN 15 Creatinine 0.7 Est GFR ( Amer) > 60 Est GFR (Non-Af Amer) > 60 Random Glucose 75 Calcium 8.3 L Total Bilirubin 0.8 AST 40 H ALT 45 Alkaline Phosphatase 70 Total Protein 6.4 Albumin 3.2 L D Globulin 3.2 Albumin/Globulin Ratio 1.0 Crossmatch See Detail Critical Care Progress Note - Nutrition Nutrition: Nutrition Category Date Time Status Liquid Diet [DIET] Diets 03/03/17 Breakfast Active Attending/Attestation - Attestation I have personally seen and examined this patient.: Yes I have fully participated in the care of the patient.: Yes I have reviewed all pertinent clinical information: Yes Notes (Text): 03/03/17 14:22 Today: Wednesday, March 03, 2017 The patient was Seen/interviewed and examined by me at the bedside during ICU round, Medical records reviewed and Management issues were discussed and formulated with the house staff. I have reviewed all the relevant clinical, laboratory, hemodynamic, radiographic data and medications Pt's current status is discussed with pt / pt's family I concur with resident's assessment and plan of care as transcribed in Dr. An Valentino.
[2017-03-04] MEDS: HYDROmorphone 0.5 mg/0.5 ml ISec IVP PRN ×4 (00:17→20:56)
[2017-03-04] MEDS: Piperacillin/Tazobact 3.375 GM in Sodium Chloride 0.9% 100 ML IVPB SCH ×4 (04:44→21:01)
--- NOTE | 2017-03-04 09:25 | CP.PCM.PN ---
<Constantin Murillo - Last Filed: 03/04/17 09:28> Subjective - Date & Time of Evaluation Date of Evaluation: 03/04/17 Time of Evaluation: 08:45 - Subjective Subjective: General Surgery Progress Note for Dr. Kaba Patient seen and examined at bedside. No acute event overnight. Patient lying in bed comfortably. Patient complaining of bilateral lower leg pain. Patient tolerating liquids. Patient has no other complaints. Denies fever/chills, cp, sob, n/v/d. Objective - Vital Signs/Intake and Output Vital Signs (last 24 hours): Temp Pulse Resp BP Pulse Ox 98.5 F 102 H 18 147/83 100 03/04/17 07:51 03/04/17 07:51 03/04/17 07:51 03/04/17 07:51 03/04/17 07:51 - Medications Medications: Current Medications Docusate Sodium (Colace) 100 mg PO BID [facility] Last Admin: 03/04/17 08:48 Dose: 100 mg Famotidine (Pepcid) 20 mg IVP Q12 [facility] Last Admin: 03/04/17 08:56 Dose: 20 mg Hydromorphone HCl (Dilaudid) 0.25 mg IVP Q4 PRN PRN Reason: Pain, moderate (4-7) Last Admin: 03/04/17 00:17 Dose: 0.25 mg Piperacillin Sod/Tazobactam (Sod 3.375 gm/ Sodium Chloride) 100 mls @ 100 mls/ hr IVPB Q6 [facility] Last Admin: 03/04/17 09:03 Dose: 100 mls/hr Metoclopramide HCl (Reglan) 10 mg IVP Q8 [facility] Last Admin: 03/04/17 08:50 Dose: 10 mg Ondansetron HCl (Zofran Inj) 4 mg IVP Q4 PRN PRN Reason: Nausea/Vomiting - Labs Labs: 03/03/17 04:50 03/03/17 04:50 PT 13.8 Seconds (9.8-13.1) H 02/28/17 13:05 INR 1.3 (0.9-1.2) H 02/28/17 13:05 APTT 24.0 Seconds (25.6-37.1) L 02/28/17 13:05 - Constitutional Appears: No Acute Distress - Head Exam Head Exam: ATRAUMATIC, NORMOCEPHALIC - Eye Exam Eye Exam: Normal appearance - ENT Exam ENT Exam: Mucous Membranes Moist - Neck Exam Neck Exam: Full ROM - Respiratory Exam Respiratory Exam: NORMAL BREATHING PATTERN - Cardiovascular Exam Cardiovascular Exam: REGULAR RHYTHM - GI/Abdominal Exam GI & Abdominal Exam: Soft, Tenderness (LLQ, adjacent to ostomy). absent: Distended, Firm, Guarding, Rigid, Rebound Additional comments: colostomy in LLQ pink and patent without output still Midline incision with haroldo is clean, dry and intact - Extremities Exam Extremities Exam: Tenderness (bilateral anterior LEs) - Neurological Exam Neurological Exam: Alert, Awake, Oriented x3 - Psychiatric Exam Psychiatric exam: Normal Affect, Normal Mood - Skin Skin Exam: Dry, Intact, Warm Additional comments: ecchymosis on bilateral anterior Lower leg Assessment and Plan - Assessment and Plan (Free Text) Plan: 89 F with perforated sigmoid diverticulitis, s/p Kandis's procedure POD #4 -f/u venous doppler -Strict I's & O's -Continue IV Abx, Pain control, IVF -OOB to chair as tolerated -Physical therapy and Incentive spirometry -Will DW Dr Sesar Murillo PGY1 <Lon Boateng - Last Filed: 03/04/17 11:23> Objective - Vital Signs/Intake and Output Vital Signs (last 24 hours): Temp Pulse Resp BP Pulse Ox 98.5 F 102 H 18 147/83 100 03/04/17 07:51 03/04/17 07:51 03/04/17 07:51 03/04/17 07:51 03/04/17 07:51 - Medications Medications: Current Medications Docusate Sodium (Colace) 100 mg PO BID [facility] Last Admin: 03/04/17 08:48 Dose: 100 mg Famotidine (Pepcid) 20 mg IVP Q12 [facility] Last Admin: 03/04/17 08:56 Dose: 20 mg Hydromorphone HCl (Dilaudid) 0.25 mg IVP Q4 PRN PRN Reason: Pain, moderate (4-7) Last Admin: 03/04/17 09:30 Dose: 0.25 mg Piperacillin Sod/Tazobactam (Sod 3.375 gm/ Sodium Chloride) 100 mls @ 100 mls/ hr IVPB Q6 [facility] Last Admin: 03/04/17 09:03 Dose: 100 mls/hr Metoclopramide HCl (Reglan) 10 mg IVP Q8 EMANI Last Admin: 03/04/17 08:50 Dose: 10 mg Ondansetron HCl (Zofran Inj) 4 mg IVP Q4 PRN PRN Reason: Nausea/Vomiting - Labs Labs: 03/04/17 09:10 03/03/17 04:50 PT 13.8 Seconds (9.8-13.1) H 02/28/17 13:05 INR 1.3 (0.9-1.2) H 02/28/17 13:05 APTT 24.0 Seconds (25.6-37.1) L 02/28/17 13:05 Assessment and Plan - Assessment and Plan (Free Text) Assessment: some gas in ostomy, no stool, cont full liquids for now
[2017-03-04 09:38] LABS: BASO % 0.2 % (0.0-2.0); EOS % 0.1 % (0.0-4.0); LYMPH # 0.6 K/uL (1.0-4.3); LYMPH % 4.2 % (20.0-40.0); MEAN CELL VOLUME 93.4 fl (81.0-99.0); MEAN CORPUSCULAR HEMOGLOBIN 30.7 pg (27.0-31.0); MEAN CORPUSCULAR HGB CONC 32.9 g/dL (33.0-37.0); MEAN PLATELET VOLUME 7.8 fl (7.2-11.7); MONO # 0.4 K/uL (0.0-0.8); MONO % 3.2 % (0.0-10.0); NEUT # 12.6 K/uL (1.8-7.0); NEUT % 92.3 % (50.0-75.0); PLATELET COUNT 271 K/uL (130-400); WHITE BLOOD COUNT 13.7 K/uL (4.8-10.8)
[2017-03-04] MEDS ORDERED: Magnesium Hydroxide Susp 30 ml UD PO ONE (09:39)
[2017-03-04 11:29] LABS: NEUTROPHIL 90 % (42-75); TOTAL CELLS COUNTED 100
[2017-03-04 11:33] LABS: LARGE PLATELETS PRESENT
[2017-03-04] MEDS ORDERED: Enoxaparin 30 mg Syringe SC SCH (11:45)
[2017-03-04] MEDS ORDERED: Enoxaparin 40 mg Syringe SC SCH (11:45)
--- NOTE | 2017-03-04 16:39 | CP.PCM.PN ---
<Bonita Aguila - Last Filed: 03/04/17 16:44> Subjective - Date & Time of Evaluation Date of Evaluation: 03/04/17 Time of Evaluation: 07:45 - Subjective Subjective: patient seen and examined with attending still c/o abd pain at surgical incision,but pain is well controlled with pain meds afebrile tolerating fluids had an uneventful night Denies chills, CP, SOB, N/V Objective - Vital Signs/Intake and Output Vital Signs (last 24 hours): Temp Pulse Resp BP Pulse Ox 99.1 F 112 H 20 122/77 96 03/04/17 16:15 03/04/17 16:15 03/04/17 16:15 03/04/17 16:15 03/04/17 16:15 Intake and Output: 03/04/17 03/04/17 06:59 18:59 Intake Total 100 Balance 100 - Medications Medications: Current Medications Docusate Sodium (Colace) 100 mg PO BID [facility] Last Admin: 03/04/17 08:48 Dose: 100 mg Enoxaparin Sodium (Lovenox) 40 mg SC DAILY EMANI PRN Reason: Protocol Last Admin: 03/04/17 14:15 Dose: 40 mg Famotidine (Pepcid) 20 mg IVP Q12 [facility] Last Admin: 03/04/17 08:56 Dose: 20 mg Hydromorphone HCl (Dilaudid) 0.25 mg IVP Q4 PRN PRN Reason: Pain, moderate (4-7) Last Admin: 03/04/17 09:30 Dose: 0.25 mg Piperacillin Sod/Tazobactam (Sod 3.375 gm/ Sodium Chloride) 100 mls @ 100 mls/ hr IVPB Q6 EMANI Last Admin: 03/04/17 09:03 Dose: 100 mls/hr Metoclopramide HCl (Reglan) 10 mg IVP Q8 [facility] Last Admin: 03/04/17 08:50 Dose: 10 mg Ondansetron HCl (Zofran Inj) 4 mg IVP Q4 PRN PRN Reason: Nausea/Vomiting - Labs Labs: 03/04/17 09:10 03/03/17 04:50 PT 13.8 Seconds (9.8-13.1) H 02/28/17 13:05 INR 1.3 (0.9-1.2) H 02/28/17 13:05 APTT 24.0 Seconds (25.6-37.1) L 02/28/17 13:05 - Additional Findings Additional findings: Constitutional Appears: No Acute Distress - ENT Exam ENT Exam: Mucous Membranes Moist - Neck Exam Neck Exam: Full ROM - Respiratory Exam Respiratory Exam: NORMAL BREATHING PATTERN - Cardiovascular Exam Cardiovascular Exam: REGULAR RHYTHM - GI/Abdominal Exam GI & Abdominal Exam: Soft, Tenderness (LLQ, adjacent to ostomy). absent: Distended, Firm, Guarding, Rigid, Rebound Additional comments: colostomy in LLQ pink and patent without output still Midline incision with haroldo is clean, dry and intact - Extremities Exam Extremities Exam: no calf tenderness, edema pitting 1+ - Neurological Exam Neurological Exam: Alert, Awake, Oriented x3 - Skin Skin Exam: Dry, Intact, Warm Additional comments: Assessment and Plan - Assessment and Plan (Free Text) Assessment: 89 F with perforated sigmoid diverticulitis, s/p Kandis's procedure POD #4 Plan: Perforated sigmoid diverticulitis, s/p Kandis's, POD #2 transfer to [facility] yesterday -Afebrile -CBC : mild leucocytosis -H/H: stable -c/w Strict I's & O's -Continue IV Abx: Zosyn, Pain control -OOB to chair as tolerated -Physcial therapy and Incentive spirometry -F/U surgical team recommendations Anemia stable -secondary to acute blood loss s/p surgery -Hgb:11.9 today -hemodynamically stable DVT prophylaxis SCDs start lovenox SC today <WellsMigue K - Last Filed: 03/16/17 16:55> Objective - Vital Signs/Intake and Output Vital Signs (last 24 hours): Temp Pulse Resp BP Pulse Ox 98.4 F 74 20 120/66 96 03/08/17 08:01 03/08/17 08:01 03/08/17 08:01 03/08/17 08:01 03/08/17 08:01 - Labs Labs: 03/08/17 06:30 03/08/17 06:30 PT 13.8 Seconds (9.8-13.1) H 02/28/17 13:05 INR 1.3 (0.9-1.2) H 02/28/17 13:05 APTT 24.0 Seconds (25.6-37.1) L 02/28/17 13:05 Assessment and Plan - Assessment and Plan (Free Text) Assessment: Patient was personally seen and examined by me in rounds with residents. Available labs and diagnostic data reviewed. Case, Patient's condition and management plan Discussed with residents in rounds. Agree with resident's progress note. Plan: As ordered.
--- NOTE | 2017-03-04 18:01 | US ---
Bilateral lower extremity ultrasound. Indication: Bilateral leg pain Technique: Duplex ultrasound evaluation of the bilateral lower extremities Comparison: None available Findings: Right leg: The common femoral and superficial femoral veins appear patent without evidence of thrombus. Evidence of occlusive thrombus involving the right popliteal and posterior tibial veins. Mild soft tissue edema. Left leg: The common femoral vein, distal superficial femoral vein, and popliteal vein appear patent without evidence of thrombus. Noncompressible proximal and mid superficial femoral veins with appearance suggestive of nonocclusive thrombus. Limited visualization of the posterior tibial vein appears patent. 4.5 x 2.0 x 3.0 cm left Martin's cyst. Mild soft tissue edema. Impression: Occlusive thrombus involving the right popliteal and posterior tibial veins. Nonocclusive thrombus involving the left proximal and mid superficial femoral veins. 4.5 x 2.0 x 3.0 cm left Martin's cyst. Mild bilateral soft tissue edema. Findings discussed with BOB Padron on 03/04/17 at 5:23 p.m.
[2017-03-04] MEDS: Enoxaparin 60 mg Syringe SC SCH (21:00)
[2017-03-05] MEDS: Piperacillin/Tazobact 3.375 GM in Sodium Chloride 0.9% 100 ML IVPB SCH ×4 (03:44→21:51)
--- NOTE | 2017-03-05 07:28 | CP.PCM.PN ---
Subjective - Date & Time of Evaluation Date of Evaluation: 03/05/17 Time of Evaluation: 07:26 - Subjective Subjective: General Surgery - Dr. Boateng Pt S&E. THEA. Yesterday pt had LE Doppler which showed B/L DVTs, she has been started on therapeutic Lovenox. Today she complains of mild pain in the abdomen near her incision, otherwise no complaints. She is tolerating full liquid diet. No N/V, F/C, SOB/Cp. Colostomy with gas and some liquid green mucus output. Objective - Vital Signs/Intake and Output Vital Signs (last 24 hours): Temp Pulse Resp BP Pulse Ox 99.1 F 112 H 20 122/77 96 03/04/17 16:15 03/04/17 16:15 03/04/17 16:15 03/04/17 16:15 03/04/17 16:15 - Medications Medications: Current Medications Docusate Sodium (Colace) 100 mg PO BID [facility] Last Admin: 03/04/17 16:53 Dose: 100 mg Enoxaparin Sodium (Lovenox) 50 mg SC Q12 EMANI PRN Reason: Protocol Famotidine (Pepcid) 20 mg IVP Q12 [facility] Last Admin: 03/04/17 20:59 Dose: 20 mg Hydromorphone HCl (Dilaudid) 0.25 mg IVP Q4 PRN PRN Reason: Pain, moderate (4-7) Last Admin: 03/04/17 20:56 Dose: 0.25 mg Piperacillin Sod/Tazobactam (Sod 3.375 gm/ Sodium Chloride) 100 mls @ 100 mls/ hr IVPB Q6 [facility] Last Admin: 03/05/17 03:44 Dose: 100 mls/hr Metoclopramide HCl (Reglan) 10 mg IVP Q8 [facility] Last Admin: 03/05/17 00:37 Dose: 10 mg Ondansetron HCl (Zofran Inj) 4 mg IVP Q4 PRN PRN Reason: Nausea/Vomiting - Labs Labs: 03/04/17 09:10 03/03/17 04:50 PT 13.8 Seconds (9.8-13.1) H 02/28/17 13:05 INR 1.3 (0.9-1.2) H 02/28/17 13:05 APTT 24.0 Seconds (25.6-37.1) L 02/28/17 13:05 - Constitutional Appears: No Acute Distress - Head Exam Head Exam: ATRAUMATIC, NORMAL INSPECTION, NORMOCEPHALIC - Eye Exam Eye Exam: Normal appearance - Respiratory Exam Respiratory Exam: NORMAL BREATHING PATTERN. absent: Respiratory Distress - GI/Abdominal Exam GI & Abdominal Exam: Soft. absent: Distended, Firm, Guarding, Tenderness, Rebound Additional comments: midline inciison C/D/I with haroldo, Colostomy pink and viable with gas and mucus output - Extremities Exam Extremities Exam: Calf Tenderness (b/l), Tenderness (dorsal foot b/l). absent: Pedal Edema - Neurological Exam Neurological Exam: Alert, Oriented x3 - Psychiatric Exam Psychiatric exam: Normal Affect, Normal Mood - Skin Skin Exam: Dry, Intact Assessment and Plan - Assessment and Plan (Free Text) Assessment: 89 F with perforated sigmoid diverticulitis, s/p Kandis's procedure POD #5 -Continue full liquid diet -Monitor Colostomy -Continue IV Abx, Pain control, IVF -Encourage OOB to chair and working with Physical therapy -Encourage use of Incentive Spirometer -Lovenox Tx for B/L DVT DW Dr Kilo Lee PGY3
[2017-03-05 07:44] LABS: HEMATOCRIT 32.1 % (34.0-47.0); MEAN CELL VOLUME 94.4 fl (81.0-99.0); MEAN CORPUSCULAR HEMOGLOBIN 31.2 pg (27.0-31.0); RED CELL DISTRIBUTION WIDTH 14.9 % (11.5-14.5); WHITE BLOOD COUNT 12.7 K/uL (4.8-10.8)
[2017-03-05 07:53] LABS: BLOOD UREA NITROGEN 9 mg/dl (7-17); CALCIUM 7.9 mg/dL (8.4-10.2); CARBON DIOXIDE 24 mmol/L (22-30); CHLORIDE 105 mmol/L (98-107); GFR AFRICAN-AMERICAN > 60; GLUCOSE,RANDOM 91 mg/dL (65-105); SODIUM 137 mmol/l (132-148)
[2017-03-05] MEDS: Enoxaparin 60 mg Syringe SC SCH ×3 (08:40→21:49)
[2017-03-05] MEDS: HYDROmorphone 0.5 mg/0.5 ml ISec IVP PRN ×4 (08:55→22:04)
[2017-03-05] MEDS: Sodium Chloride 0.9% 1,000 ML IV SCH (12:29)
[2017-03-05] MEDS: Digoxin 250 mcg (0.25 mg) Tab PO SCH (14:15)
[2017-03-05 15:04] VITALS: BMI 19.2
[2017-03-06] MEDS: Piperacillin/Tazobact 3.375 GM in Sodium Chloride 0.9% 100 ML IVPB SCH ×4 (04:53→21:47)
[2017-03-06] MEDS: Sodium Chloride 0.9% 1,000 ML IV SCH (04:55)
[2017-03-06] MEDS: Enoxaparin 60 mg Syringe SC SCH ×2 (08:43→21:48)
[2017-03-06] MEDS: Digoxin 250 mcg (0.25 mg) Tab PO SCH (08:44)
[2017-03-06] MEDS: HYDROmorphone 0.5 mg/0.5 ml ISec IVP PRN ×3 (08:46→17:55)
[2017-03-06 09:53] LABS: HEMATOCRIT 32.9 % (34.0-47.0); MEAN CELL VOLUME 94.4 fl (81.0-99.0); MEAN CORPUSCULAR HGB CONC 32.8 g/dL (33.0-37.0); RED CELL DISTRIBUTION WIDTH 15.3 % (11.5-14.5)
[2017-03-06 10:07] LABS: ALKALINE PHOSPHATASE 64 U/L (38-126); ALT/SGPT 60 U/L (9-52); AST/SGOT 55 U/L (14-36); BILIRUBIN,TOTAL 0.8 mg/dl (0.2-1.3); BLOOD UREA NITROGEN 11 mg/dl (7-17); CALCIUM 8.1 mg/dL (8.4-10.2); CARBON DIOXIDE 24 mmol/L (22-30); CHLORIDE 104 mmol/L (98-107); GFR AFRICAN-AMERICAN > 60; GLUCOSE,RANDOM 86 mg/dL (65-105); POTASSIUM 3.5 MMOL/L (3.6-5.0); SODIUM 137 mmol/l (132-148); TOTAL PROTEIN 5.8 G/DL (6.3-8.2)
--- NOTE | 2017-03-06 19:55 | CP.PCM.PN ---
Subjective - Date & Time of Evaluation Date of Evaluation: 03/06/17 Time of Evaluation: 19:53 - Subjective Subjective: Surgery PT s&e. NAEON. Pt is doing well. Pain controlled. Denies F/C/N/V/CP/SOB. stool in stoma. Tolerating diet Objective - Vital Signs/Intake and Output Vital Signs (last 24 hours): Temp Pulse Resp BP Pulse Ox 98.2 F 97 H 22 162/73 H 95 03/06/17 16:22 03/06/17 16:22 03/06/17 16:22 03/06/17 16:22 03/06/17 16:22 Intake and Output: 03/06/17 03/07/17 18:59 06:59 Intake Total 600 Balance 600 - Medications Medications: Current Medications Digoxin (Lanoxin) 0.25 mg PO DAILY [facility] Last Admin: 03/06/17 08:44 Dose: 0.25 mg Docusate Sodium (Colace) 100 mg PO BID [facility] Last Admin: 03/06/17 17:51 Dose: 100 mg Enoxaparin Sodium (Lovenox) 50 mg SC Q12 [facility] PRN Reason: Protocol Last Admin: 03/06/17 08:43 Dose: 50 mg Famotidine (Pepcid) 20 mg IVP Q12 [facility] Last Admin: 03/06/17 08:52 Dose: 20 mg Hydromorphone HCl (Dilaudid) 0.5 mg IVP Q4 PRN PRN Reason: Pain, moderate (4-7) Last Admin: 03/06/17 17:55 Dose: 0.5 mg Piperacillin Sod/Tazobactam (Sod 3.375 gm/ Sodium Chloride) 100 mls @ 100 mls/ hr IVPB Q6 [facility] Last Admin: 03/06/17 17:50 Dose: 100 mls/hr Metoclopramide HCl (Reglan) 10 mg IVP Q8 [facility] Last Admin: 03/06/17 17:51 Dose: 10 mg Ondansetron HCl (Zofran Inj) 4 mg IVP Q4 PRN PRN Reason: Nausea/Vomiting - Labs Labs: 03/06/17 08:20 03/06/17 08:20 PT 13.8 Seconds (9.8-13.1) H 02/28/17 13:05 INR 1.3 (0.9-1.2) H 02/28/17 13:05 APTT 24.0 Seconds (25.6-37.1) L 02/28/17 13:05 - Constitutional Appears: No Acute Distress - Head Exam Head Exam: ATRAUMATIC, NORMAL INSPECTION, NORMOCEPHALIC - Eye Exam Eye Exam: EOMI, Normal appearance, PERRL Pupil Exam: NORMAL ACCOMODATION, PERRL - ENT Exam ENT Exam: Mucous Membranes Moist, Normal Exam - Neck Exam Neck Exam: Full ROM, Normal Inspection. absent: Lymphadenopathy - Respiratory Exam Respiratory Exam: Clear to Ausculation Bilateral, NORMAL BREATHING PATTERN - Cardiovascular Exam Cardiovascular Exam: REGULAR RHYTHM, +S1, +S2. absent: Murmur - GI/Abdominal Exam GI & Abdominal Exam: Soft, Tenderness, Normal Bowel Sounds. absent: Distended, Firm, Guarding, Rigid Additional comments: Incision C/D/I. Stoma has stool - Exam Exam: NORMAL INSPECTION - Extremities Exam Extremities Exam: Full ROM, Normal Capillary Refill, Normal Inspection. absent : Joint Swelling, Pedal Edema - Back Exam Back Exam: NORMAL INSPECTION - Neurological Exam Neurological Exam: Alert, Awake, CN II-XII Intact, Normal Gait, Oriented x3 - Psychiatric Exam Psychiatric exam: Normal Affect, Normal Mood - Skin Skin Exam: Dry, Intact, Normal Color, Warm Assessment and Plan - Assessment and Plan (Free Text) Assessment: 89 F with perforated sigmoid diverticulitis, s/p Kandis's procedure POD #6 -Continue reg diet -Monitor Colostomy -Abx, Pain control -Encourage OOB to chair and working with Physical therapy -Encourage use of Incentive Spirometer -Lovenox Tx for B/L DVT HAROON attending
[2017-03-07] MEDS: Piperacillin/Tazobact 3.375 GM in Sodium Chloride 0.9% 100 ML IVPB SCH ×4 (04:32→21:27)
--- NOTE | 2017-03-07 08:13 | CP.PCM.PN ---
Subjective - Date & Time of Evaluation Date of Evaluation: 03/07/17 Time of Evaluation: 10:04 - Subjective Subjective: Surgery Pt s&e. NAEON. Denies F/C/N/V/CP/SOB. Pain controlled. Stoma has stool. + amb w help. + void. Tolerating diet. Objective - Vital Signs/Intake and Output Vital Signs (last 24 hours): Temp Pulse Resp BP Pulse Ox 98.2 F 77 16 121/66 96 03/07/17 07:32 03/07/17 07:32 03/07/17 07:32 03/07/17 07:32 03/07/17 07:32 - Medications Medications: Current Medications Digoxin (Lanoxin) 0.25 mg PO DAILY [facility] Last Admin: 03/06/17 08:44 Dose: 0.25 mg Docusate Sodium (Colace) 100 mg PO BID [facility] Last Admin: 03/06/17 17:51 Dose: 100 mg Enoxaparin Sodium (Lovenox) 50 mg SC Q12 [facility] PRN Reason: Protocol Last Admin: 03/06/17 21:48 Dose: 50 mg Famotidine (Pepcid) 20 mg IVP Q12 [facility] Last Admin: 03/06/17 21:50 Dose: 20 mg Hydromorphone HCl (Dilaudid) 0.5 mg IVP Q4 PRN PRN Reason: Pain, moderate (4-7) Last Admin: 03/07/17 05:42 Dose: 0.5 mg Piperacillin Sod/Tazobactam (Sod 3.375 gm/ Sodium Chloride) 100 mls @ 100 mls/ hr IVPB Q6 [facility] Last Admin: 03/07/17 04:32 Dose: 100 mls/hr Metoclopramide HCl (Reglan) 10 mg IVP Q8 [facility] Last Admin: 03/07/17 01:44 Dose: 10 mg Ondansetron HCl (Zofran Inj) 4 mg IVP Q4 PRN PRN Reason: Nausea/Vomiting Last Admin: 03/06/17 22:08 Dose: 4 mg - Labs Labs: 03/06/17 08:20 03/06/17 08:20 PT 13.8 Seconds (9.8-13.1) H 02/28/17 13:05 INR 1.3 (0.9-1.2) H 02/28/17 13:05 APTT 24.0 Seconds (25.6-37.1) L 02/28/17 13:05 - Constitutional Appears: No Acute Distress - Head Exam Head Exam: ATRAUMATIC, NORMAL INSPECTION, NORMOCEPHALIC - Eye Exam Eye Exam: EOMI, Normal appearance, PERRL Pupil Exam: NORMAL ACCOMODATION, PERRL - ENT Exam ENT Exam: Mucous Membranes Moist, Normal Exam - Neck Exam Neck Exam: Full ROM, Normal Inspection. absent: Lymphadenopathy - Respiratory Exam Respiratory Exam: Clear to Ausculation Bilateral, NORMAL BREATHING PATTERN - Cardiovascular Exam Cardiovascular Exam: REGULAR RHYTHM, +S1, +S2. absent: Murmur - GI/Abdominal Exam GI & Abdominal Exam: Soft, Tenderness, Normal Bowel Sounds. absent: Distended, Firm, Guarding Additional comments: Stoma has stool. Incision C/D/I. Stapled. - Exam Exam: NORMAL INSPECTION - Extremities Exam Extremities Exam: Full ROM, Normal Capillary Refill, Normal Inspection. absent : Joint Swelling, Pedal Edema - Back Exam Back Exam: NORMAL INSPECTION - Neurological Exam Neurological Exam: Alert, Awake, CN II-XII Intact, Oriented x3 - Psychiatric Exam Psychiatric exam: Normal Affect, Normal Mood - Skin Skin Exam: Dry, Intact, Normal Color, Warm Assessment and Plan - Assessment and Plan (Free Text) Assessment: 89 F with perforated sigmoid diverticulitis, s/p Kandis's procedure POD #7 -Continue reg diet -Monitor Colostomy -Abx, Pain control -Encourage OOB to chair and working with Physical therapy -Encourage use of Incentive Spirometer -Lovenox Tx for B/L DVT Will HAROON attending
[2017-03-07 08:21] LABS: HEMATOCRIT 28.7 % (34.0-47.0); MEAN CELL VOLUME 95.2 fl (81.0-99.0); MEAN CORPUSCULAR HEMOGLOBIN 31.8 pg (27.0-31.0); MEAN CORPUSCULAR HGB CONC 33.4 g/dL (33.0-37.0); WHITE BLOOD COUNT 8.2 K/uL (4.8-10.8)
[2017-03-07] MEDS: Enoxaparin 60 mg Syringe SC SCH ×2 (08:37→21:30)
[2017-03-07] MEDS: Digoxin 250 mcg (0.25 mg) Tab PO SCH (08:39)
[2017-03-07 08:47] LABS: ALB/GLOB RATIO 0.9 (1.0-2.1); ALKALINE PHOSPHATASE 50 U/L (38-126); ALT/SGPT 54 U/L (9-52); AST/SGOT 26 U/L (14-36); BILIRUBIN,TOTAL 0.5 mg/dl (0.2-1.3); BLOOD UREA NITROGEN 12 mg/dl (7-17); CARBON DIOXIDE 23 mmol/L (22-30); CHLORIDE 107 mmol/L (98-107); GFR AFRICAN-AMERICAN > 60; GLUCOSE,RANDOM 103 mg/dL (65-105); POTASSIUM 3.6 MMOL/L (3.6-5.0); SODIUM 137 mmol/l (132-148); TOTAL PROTEIN 5.5 G/DL (6.3-8.2)
--- NOTE | 2017-03-07 11:48 | PN ---
DATE: 03/07/2017 SUBJECTIVE: The patient was seen and examined. Interim events noted. Consults noted and appreciated. Surgical followup and intervention noted and appreciated. The patient remains in the general medical room. The patient feels okay. No abdominal pain. She tolerating food very well, passing gas and stool. No chest pain. No shortness of breath. PHYSICAL EXAMINATION: GENERAL: The patient is in no acute distress. VITAL SIGNS: Stable. HEART: S1 and S2 normal, regular. LUNGS: Good bilateral air exchange. ABDOMEN: Soft and nontender. Surgical site is clean. Minimal stool in the colostomy bag, no sign of acute complication. EXTREMITIES: No edema. No calf swelling or tenderness. No acute ischemia. PRINCIPAL MECHANICAL ENGINEER: Essentially unchanged. DIAGNOSTIC DATA: Available diagnostic data reviewed. WBC count still remains elevated. IMPRESSION: Overall, the patient is medically stable. PLAN: As ordered. Migue Wells MD
[2017-03-08] MEDS: Piperacillin/Tazobact 3.375 GM in Sodium Chloride 0.9% 100 ML IVPB SCH ×2 (03:34→10:09)
[2017-03-08 07:25] LABS: HEMATOCRIT 26.9 % (34.0-47.0); MEAN CELL VOLUME 93.7 fl (81.0-99.0); MEAN CORPUSCULAR HEMOGLOBIN 31.9 pg (27.0-31.0); RED CELL DISTRIBUTION WIDTH 14.6 % (11.5-14.5); WHITE BLOOD COUNT 7.3 K/uL (4.8-10.8)
[2017-03-08 07:49] LABS: ALB/GLOB RATIO 0.8 (1.0-2.1); ALKALINE PHOSPHATASE 50 U/L (38-126); ALT/SGPT 54 U/L (9-52); AST/SGOT 34 U/L (14-36); BILIRUBIN,TOTAL 0.4 mg/dl (0.2-1.3); BLOOD UREA NITROGEN 11 mg/dl (7-17); CALCIUM 7.7 mg/dL (8.4-10.2); CARBON DIOXIDE 27 mmol/L (22-30); CHLORIDE 107 mmol/L (98-107); GFR AFRICAN-AMERICAN > 60; GLUCOSE,RANDOM 98 mg/dL (65-105); POTASSIUM 3.4 MMOL/L (3.6-5.0); SODIUM 138 mmol/l (132-148); TOTAL PROTEIN 5.2 G/DL (6.3-8.2)
[2017-03-08 08:02] VITALS: BP 120/66; PULSE 74; RESP 20; TEMP 98.4; O2SAT 96
[2017-03-08] MEDS: Digoxin 250 mcg (0.25 mg) Tab PO SCH (08:41)
[2017-03-08] MEDS: Enoxaparin 60 mg Syringe SC SCH (08:41)
[2017-03-08 08:46] VITALS: PULSE 74
--- NOTE | 2017-03-08 10:34 | CP.PCM.PN ---
Subjective - Date & Time of Evaluation Date of Evaluation: 03/08/17 Time of Evaluation: 10:32 - Subjective Subjective: Surgery: Dr. Boateng Pt seen and examined. Resting comfortably in bed. Pain controlled. Tolerating regular diet. No N/V. +Stool output in stoma. Objective - Vital Signs/Intake and Output Vital Signs (last 24 hours): Temp Pulse Resp BP Pulse Ox 98.4 F 74 20 120/66 96 03/08/17 08:01 03/08/17 08:01 03/08/17 08:01 03/08/17 08:01 03/08/17 08:01 Intake and Output: 03/08/17 03/08/17 06:59 18:59 Intake Total 700 Output Total 150 Balance 550 - Medications Medications: Current Medications Digoxin (Lanoxin) 0.25 mg PO DAILY [facility] Last Admin: 03/08/17 08:41 Dose: 0.25 mg Docusate Sodium (Colace) 100 mg PO BID [facility] Last Admin: 03/08/17 08:40 Dose: 100 mg Enoxaparin Sodium (Lovenox) 50 mg SC Q12 [facility] PRN Reason: Protocol Last Admin: 03/08/17 08:41 Dose: 50 mg Famotidine (Pepcid) 20 mg IVP Q12 [facility] Last Admin: 03/08/17 08:46 Dose: 20 mg Hydromorphone HCl (Dilaudid) 0.5 mg IVP Q4 PRN PRN Reason: Pain, moderate (4-7) Last Admin: 03/08/17 09:28 Dose: 0.5 mg Piperacillin Sod/Tazobactam (Sod 3.375 gm/ Sodium Chloride) 100 mls @ 100 mls/ hr IVPB Q6 [facility] Last Admin: 03/08/17 10:09 Dose: 100 mls/hr Metoclopramide HCl (Reglan) 10 mg IVP Q8 [facility] Last Admin: 03/08/17 08:42 Dose: 10 mg Ondansetron HCl (Zofran Inj) 4 mg IVP Q4 PRN PRN Reason: Nausea/Vomiting Last Admin: 03/07/17 23:19 Dose: 4 mg - Labs Labs: 03/08/17 06:30 03/08/17 06:30 PT 13.8 Seconds (9.8-13.1) H 02/28/17 13:05 INR 1.3 (0.9-1.2) H 02/28/17 13:05 APTT 24.0 Seconds (25.6-37.1) L 02/28/17 13:05 - Constitutional Appears: Non-toxic, No Acute Distress - Head Exam Head Exam: ATRAUMATIC, NORMOCEPHALIC - Eye Exam Eye Exam: EOMI - ENT Exam ENT Exam: Mucous Membranes Moist - Neck Exam Neck Exam: Full ROM - Respiratory Exam Respiratory Exam: NORMAL BREATHING PATTERN. absent: Accessory Muscle Use, Respiratory Distress - GI/Abdominal Exam GI & Abdominal Exam: Soft. absent: Distended, Firm, Guarding, Rigid, Tenderness , Rebound Additional comments: midline incision C/D/I w. haroldo L side stoma, [place] and patent w. semi formed stool - Extremities Exam Extremities Exam: absent: Calf Tenderness, Pedal Edema - Neurological Exam Neurological Exam: Alert, Awake, Oriented x3 Assessment and Plan - Assessment and Plan (Free Text) Assessment: 89F w. sigmoid diverticulitis w. perforation s/p pacheco's, POD#8 -c/w regular diet -encourage OOB, IS use -c/w PT -pt is clear for TCU from surgical standpoint -will d/w attending Zemaitis PGY3
[2017-03-08] MEDS ORDERED: Potassium Chloride 20 mEq ER Tab PO ONE (13:30)
--- NOTE | 2017-03-08 16:37 | PN ---
DATE: 03/08/2017 SUBJECTIVE: The patient is seen and examined. Interim events noted. Consults noted and appreciated. Surgical followup and intervention noted and appreciated. The patient remains in . The patient remains in a regular medical floor. She denies any specific complaints at this time, but also has one episode of vomiting, moving bowels, and tolerating food very well. PHYSICAL EXAMINATION: GENERAL: The patient is in no acute distress. VITAL SIGNS: Stable. HEART: S1 and S2 normal, regular. LUNGS: Good bilateral air entry. ABDOMEN: Soft and nontender. Surgical site is clean. Colostomy has liquid stools. EXTREMITIES: No calf swelling or tenderness. No acute ischemia. CENTRAL NERVOUS SYSTEM: Essentially unchanged. DIAGNOSTIC DATA: Available diagnostic data reviewed. IMPRESSION: Overall, the patient is medically stable. PLAN: As ordered. Case and plan discussed with the patient and patient's family at bedside. Migue Wells MD
--- NOTE | 2017-03-09 08:23 | PN ---
DATE: 03/05/2017 SUBJECTIVE: The patient was seen and examined. Interim events noted. ____ orders were given as the patient was found to have DVT. Surgical followup and intervention noted and appreciated. The patient remains in stable medical health. The patient is sleeping, arousable. Denies any specific complaints. No specific history reported by the patient's home attender at bedside. PHYSICAL EXAMINATION: GENERAL: The patient is in no acute distress. VITAL SIGNS: Stable. HEART: S1 and S2 normal and regular. LUNGS: Good bilateral air exchange. ABDOMEN: Surgical site clean. Grossly, no acute complication. Soft and nontender. No organomegaly. Bowel sounds are plus. EXTREMITIES: No edema. No calf swelling or tenderness. No acute ischemia. The patient does have positive DVT on both sides of the lower extremities. No evidence of neurovascular compromise. CENTRAL NERVOUS SYSTEM: Essentially unchanged. DIAGNOSTIC DATA: Available diagnostic data reviewed. ASSESSMENT: Overall, the patient's general medical condition, hemodynamically stable. Also had a new complication of deep venous thrombosis. PLAN: As ordered. Case and plan was discussed with the patient's attendant at bedside. Migue Wells MD
== END 2017-03-08 15:40 | DRG 330 ==
LOC: SUPCPDRO 12:00 → H.ER 12:00 → H.ERHOLD 16:18 → H.ICU/CCU 17:17 → H.MEDSURG1 03-03 15:19
PROVIDERS: ADMIT Internal Medicine; ATTEND Internal Medicine
PROC: 0DBN0ZZ Excision of Sigmoid Colon, Open Approach (ICD-10-PCS; principal; 2017-03-01)
PROC: 0D1M0Z4 Bypass Descending Colon to Cutaneous, Open Approach (ICD-10-PCS; 2017-03-01)
DX: K57.20 Diverticulitis of large intestine with perforation and abscess without bleeding (principal); I82.412 Acute embolism and thrombosis of left femoral vein; I48.2 Chronic atrial fibrillation; Z78.1 Physical restraint status; D62 Acute posthemorrhagic anemia; I82.431 Acute embolism and thrombosis of right popliteal vein; I82.441 Acute embolism and thrombosis of right tibial vein; Z88.6 Allergy status to analgesic agent; Z88.4 Allergy status to anesthetic agent; Z91.041 Radiographic dye allergy status; Z91.040 Latex allergy status; Z91.013 Allergy to seafood; Z91.018 Allergy to other foods; I25.10 Atherosclerotic heart disease of native coronary artery without angina pectoris; Z87.891 Personal history of nicotine dependence; H40.9 Unspecified glaucoma; G89.29 Other chronic pain; K59.09 Other constipation; K29.70 Gastritis, unspecified, without bleeding; M81.0 Age-related osteoporosis without current pathological fracture; R41.0 Disorientation, unspecified; T50.905A Adverse effect of unspecified drugs, medicaments and biological substances, initial encounter; R73.9 Hyperglycemia, unspecified

== ENCOUNTER 2017-03-08 16:13 | Inpatient (IN) | payer OTHER ==
[2017-03-08 16:25] VITALS: BMI 23.2
[2017-03-08 18:53] VITALS: RESP 20
[2017-03-08] MEDS: Enoxaparin 60 mg Syringe SC SCH (20:46)
[2017-03-08] MEDS ORDERED: Piperacillin/Tazobact 3.375 gm Inj IVPB SCH (22:00)
[2017-03-09] MEDS: Piperacillin/Tazobact 3.375 GM in Sodium Chloride 0.9% 100 ML IVPB SCH ×4 (00:40→17:02)
[2017-03-09] MEDS: Enoxaparin 60 mg Syringe SC SCH ×2 (09:00→21:54)
[2017-03-09] MEDS: Digoxin 250 mcg (0.25 mg) Tab PO SCH (09:01)
--- NOTE | 2017-03-09 09:05 | CP.PCM.CON ---
History of Present Illness - History of Present Illness History of Present Illness: Surgery: Dr. Boateng CC: S/P Harmon's HPI: 83 F with PMH of diverticulitis, CHF, chronic back pain and glaucoma presented to ED on 02/28 with abd pain 2/2 to perforated sigmoid diverticulitis. Pt was taken to OR on 02/28 for Harmon's procedure. Post operatively pt developed B/L LE DVTs which were managed w. therapetuic lovenox. Pt condition eventually improved to the point where she was cleared from surgical standpoint for transfer to TCU. When pt was seen this morning she denies F/C, no RODRÍGUEZ/ blurred vision, no CP/palpitations, no SOB/cough, she is tolerating diet, no N/V , there is semi formed brown stool in ostomy bag. Pt was complaining of abd pain this morning. She states that she was given tylenol overnight for pain, which did not provide any relief. She continues to have pain in the B/L LE, L>R. PMH: diverticulitis, CHF, ?CAD, Osteoporosis, Gastritis, chronic back pain and glaucoma PSH: Harmon's, hiatal hernia repair 2 years ago, Appendectomy, Cholecystectomy Meds: MAR reviewed ALL: iodine, latex, codeine, lidocaine Social: former smoker - quit 20 years ago, denies etoh/illicit drug use. Fhx: non-contributory Review of Systems - Review of Systems All systems: reviewed and no additional remarkable complaints except (HPI) Past Patient History - Infectious Disease Hx of Infectious Diseases: None - Past Medical History & Family History Past Medical History?: Yes - Past Social History Smoking Status: Never Smoked - CARDIAC Hx Cardiac Disorders: Yes Hx Congestive Heart Failure: Yes - PULMONARY Hx Respiratory Disorders: No - NEUROLOGICAL Hx Neurological Disorder: No - HEENT Hx HEENT Problems: No - RENAL Hx Chronic Kidney Disease: No - ENDOCRINE/METABOLIC Hx Endocrine Disorders: No - HEMATOLOGICAL/ONCOLOGICAL Hx AIDS: No Hx Anemia: Yes Hx Human Immunodeficiency Virus (HIV): No - INTEGUMENTARY Hx Dermatological Problems: No - MUSCULOSKELETAL/RHEUMATOLOGICAL Hx Arthritis: Yes Hx Falls: No - GASTROINTESTINAL Hx Diverticulitis: Yes Hx Gastritis: Yes - GENITOURINARY/GYNECOLOGICAL Hx Genitourinary Disorders: No - PSYCHIATRIC Hx Substance Use: No - SURGICAL HISTORY Hx Appendectomy: Yes Hx Cholecystectomy: Yes Other/Comment: as per pt hernia repair - ANESTHESIA Hx Anesthesia: Yes Hx Anesthesia Reactions: No Hx Malignant Hyperthermia: No Meds Allergies/Adverse Reactions: Allergies Allergy/AdvReac Type Severity Reaction Status Date / Time apple Allergy SHORTNESS Verified 03/08/17 16:25 OF BREATH banana Allergy SHORTNESS Verified 03/08/17 16:25 OF BREATH FISH Allergy SHORTNESS Verified 03/08/17 16:25 OF BREATH iodine Allergy SHORTNESS Verified 03/08/17 16:25 OF BREATH latex Allergy RASH Verified 03/08/17 16:25 codeine AdvReac ANAPHYLAXIS Verified 03/08/17 16:25 lidocaine AdvReac ANAPHYLAXIS Verified 03/08/17 16:25 - Medications Medications: Current Medications Acetaminophen (Tylenol 325mg Tab) 650 mg PO Q6 PRN PRN Reason: Pain, moderate (4-7) Last Admin: 03/08/17 20:46 Dose: 650 mg Digoxin (Lanoxin) 0.25 mg PO DAILY [facility] Last Admin: 03/09/17 09:01 Dose: 0.25 mg Docusate Sodium (Colace) 100 mg PO BID [facility] Last Admin: 03/09/17 09:00 Dose: 100 mg Enoxaparin Sodium (Lovenox) 50 mg SC Q12 [facility] PRN Reason: Protocol Last Admin: 03/09/17 09:00 Dose: 50 mg Famotidine (Pepcid) 20 mg PO Q12 [facility] Last Admin: 03/09/17 09:00 Dose: 20 mg Piperacillin Sod/Tazobactam (Sod 3.375 gm/ Sodium Chloride) 100 mls @ 100 mls/ hr IVPB 0000,0600,1200,1800 [facility] Last Admin: 03/09/17 05:35 Dose: 100 mls/hr Tramadol HCl (Ultram) 50 mg PO Q6 PRN PRN Reason: Pain, moderate (4-7) Physical Exam - Constitutional Appears: Non-toxic, No Acute Distress - Head Exam Head Exam: ATRAUMATIC, NORMOCEPHALIC - Eye Exam Eye Exam: EOMI. absent: Scleral icterus Pupil Exam: PERRL - ENT Exam ENT Exam: Mucous Membranes Moist, Normal External Ear Exam - Neck Exam Neck exam: Positive for: Full Rom - Respiratory Exam Respiratory Exam: NORMAL BREATHING PATTERN. absent: Accessory Muscle Use, Respiratory Distress - Cardiovascular Exam Cardiovascular Exam: REGULAR RHYTHM - GI/Abdominal Exam GI & Abdominal Exam: Soft, Tenderness (gino-incisional ). absent: Distended, Firm, Guarding, Rebound, Rigid Additional comments: midline incision C/D/I w. haroldo in place L mid abd stoma: pink and patent w. semi formed stool - Extremities Exam Extremities exam: Positive for: calf tenderness (B/L L>R), pedal edema (B/L) - Neurological Exam Neurological exam: Alert, Oriented x3 - Psychiatric Exam Psychiatric exam: Normal Affect, Normal Mood - Skin Skin Exam: Dry, Normal Color, Warm Results - Vital Signs Recent Vital Signs: Last Vital Signs Temp 98.2 F 03/09/17 08:09 Pulse 75 03/09/17 08:09 Resp 20 03/09/17 08:09 BP 122/66 03/09/17 08:09 Pulse Ox 80 L 03/09/17 08:09 Assessment & Plan - Assessment and Plan (Free Text) Assessment: 89F w. diverticulitis, s/p Harmon's POD#9 -Tramdol for pain, will adjust pain meds as needed -monitor stoma output -c/w lovenox for DVT -c/w regular diet -encourage OOB and IS use -c/w PT -will d/w attending Zemaitis PGY3
--- NOTE | 2017-03-09 17:03 | HP ---
HISTORY OF PRESENT ILLNESS: This is an 89-year-old female without significant chronic medical problem except diverticulosis, who was having abdominal pain, so the patient was admitted to medical floor and found to have intestinal obstruction. For which the patient underwent surgical intervention and colostomy, which the patient tolerated very well. Postop course was complicated by DVT. The patient was started on Lovenox and the patient was stabilized and was transferred to transitional care unit for further optimization. Currently, the patient denies any abdominal pain. PAST MEDICAL HISTORY: Significant for diverticulosis. PAST SURGICAL HISTORY: Remarkable for recent intestinal resection. PERSONAL HISTORY: The patient is currently nonsmoker, nondrinker. No substance abuse. MEDICATIONS: The patient is on multiple medications, which is as per reconciliation sheet, which was reviewed . ALLERGIES: THE PATIENT HAS SOME ALLERGY LISTED IN MEDICAL RECORD. FAMILY HISTORY: Noncontributory. REVIEW OF SYSTEMS: Positive for generalized weakness. Review of system otherwise is negative for headache, dizziness, syncope, loss of consciousness, chest pain, shortness of breath, nausea, vomiting, diarrhea, abdominal pain, constipation, any new joint or extremity pain. Review of system, all other organ system is unremarkable. PHYSICAL EXAMINATION: GENERAL: Fairly built, fairly nourished, elderly female in no acute distress. VITAL SIGNS: Temperature afebrile, pulse 80, respirations 18, blood pressure 136/76. HEENT: Pupils are reactive to light. NECK: No JVD. No thyromegaly. No lymphadenopathy. No nystagmus. Normocephalic and atraumatic skull. HEART: S1 and S2 normal, regular. No significant murmur, gallop, or rub. LUNGS: Chest with bilateral air exchange. No rales or rhonchi. ABDOMEN: The patient has colostomy, which is draining stool. The patient also has midline surgical site, which clinically seems uncomplicated. Bowel sounds are present. Abdomen otherwise is soft, nontender. No organomegaly. No fluids. No sign of acute complication. No guarding. No rigidity. No rebound. EXTREMITIES: The patient has DVT, but currently the patient does not have any edema, calf swelling or tenderness. There is no sign of any acute gross distal neurological compromise. CENTRAL NERVOUS SYSTEM: Essentially unchanged. DIAGNOSTIC DATA: Available diagnostic data is reviewed. Overall, the patient's other medical condition is stable. ADMITTING IMPRESSION: Intestinal obstruction status post surgery, deep vein thrombosis, diverticulosis. PLAN: Plan as ordered. Case and plan discussed with the patient. Migue Wells MD
[2017-03-10] MEDS: Piperacillin/Tazobact 3.375 GM in Sodium Chloride 0.9% 100 ML IVPB SCH ×4 (00:06→17:27)
[2017-03-10] MEDS: Digoxin 250 mcg (0.25 mg) Tab PO SCH (08:43)
[2017-03-10] MEDS: Enoxaparin 60 mg Syringe SC SCH ×2 (08:43→22:00)
--- NOTE | 2017-03-10 10:20 | CP.PCM.PN ---
Subjective - Date & Time of Evaluation Date of Evaluation: 03/10/17 Time of Evaluation: 10:18 - Subjective Subjective: Surgery Pt s&e. NAEON. Pain controlled. Tolerating diet. Denies F/C/N/V/D/CP/SOB. + void. Stoma in place. Objective - Vital Signs/Intake and Output Vital Signs (last 24 hours): Temp Pulse Resp BP Pulse Ox 98.1 F 75 20 133/73 96 03/10/17 09:09 03/10/17 09:09 03/10/17 09:09 03/10/17 09:09 03/10/17 09:09 - Medications Medications: Current Medications Acetaminophen (Tylenol 325mg Tab) 650 mg PO Q6 PRN PRN Reason: Pain, moderate (4-7) Last Admin: 03/08/17 20:46 Dose: 650 mg Digoxin (Lanoxin) 0.25 mg PO DAILY [facility] Last Admin: 03/10/17 08:43 Dose: 0.25 mg Docusate Sodium (Colace) 100 mg PO BID [facility] Last Admin: 03/10/17 08:42 Dose: 100 mg Enoxaparin Sodium (Lovenox) 50 mg SC Q12 [facility] PRN Reason: Protocol Last Admin: 03/10/17 08:43 Dose: 50 mg Famotidine (Pepcid) 20 mg PO Q12 [facility] Last Admin: 03/10/17 08:44 Dose: 20 mg Piperacillin Sod/Tazobactam (Sod 3.375 gm/ Sodium Chloride) 100 mls @ 100 mls/ hr IVPB 0000,0600,1200,1800 [facility] Last Admin: 03/10/17 06:22 Dose: 100 mls/hr Tramadol HCl (Ultram) 50 mg PO Q6 PRN PRN Reason: Pain, moderate (4-7) Last Admin: 03/10/17 00:07 Dose: 50 mg - Constitutional Appears: No Acute Distress - Head Exam Head Exam: ATRAUMATIC, NORMAL INSPECTION, NORMOCEPHALIC - Eye Exam Eye Exam: EOMI, Normal appearance, PERRL Pupil Exam: NORMAL ACCOMODATION, PERRL - ENT Exam ENT Exam: Mucous Membranes Moist, Normal Exam - Neck Exam Neck Exam: Full ROM, Normal Inspection. absent: Lymphadenopathy - Respiratory Exam Respiratory Exam: Clear to Ausculation Bilateral, NORMAL BREATHING PATTERN - Cardiovascular Exam Cardiovascular Exam: REGULAR RHYTHM, +S1, +S2. absent: Murmur - GI/Abdominal Exam GI & Abdominal Exam: Soft, Tenderness. absent: Distended, Firm, Guarding, Rigid Additional comments: Stoma in place: Stool in bag. Patent. Incision C/D/I. Stapled. - Exam Exam: NORMAL INSPECTION - Extremities Exam Extremities Exam: Full ROM, Normal Capillary Refill, Normal Inspection. absent : Joint Swelling, Pedal Edema - Back Exam Back Exam: NORMAL INSPECTION - Neurological Exam Neurological Exam: Alert, Awake, CN II-XII Intact, Normal Gait, Oriented x3 - Psychiatric Exam Psychiatric exam: Normal Affect, Normal Mood - Skin Skin Exam: Dry, Intact, Normal Color, Warm Assessment and Plan - Assessment and Plan (Free Text) Assessment: 89F w. diverticulitis, s/p Harmon's POD#10 -Tramdol for pain, will adjust pain meds as needed -monitor stoma output -c/w lovenox for DVT -c/w regular diet -encourage OOB and IS use -c/w PT -will d/w attending
--- NOTE | 2017-03-10 10:57 | PN ---
DATE: 03/10/2017 SUBJECTIVE: The patient is seen and examined. Interim events noted. Consults noted and appreciated. Surgical followup and intervention noted and appreciated. The patient feels okay, pain is adequately controlled. No chest pain, no shortness of breath. The patient is eating adequately. She is here without any problem, passing gas and stool and also passing urine adequately. PHYSICAL EXAMINATION: GENERAL: The patient is in no acute distress. VITAL SIGNS: Afebrile. HEART: S1 and S2 normal, regular. LUNGS: Clear, bilateral air entry. ABDOMEN: Soft, nontender. The patient is status post surgery. Surgical site is clean without any acute complication. Bowel sounds are present. No guarding. No rigidity. No rebound. EXTREMITIES: No edema, no calf swelling, no tenderness. No acute ischemia. CENTRAL NERVOUS SYSTEM: Essentially unchanged. DIAGNOSTIC DATA: Available diagnostic data reviewed. IMPRESSION: Overall, the patient's general medical condition is stable. PLAN: As ordered. Migue Wells MD
[2017-03-11] MEDS: Piperacillin/Tazobact 3.375 GM in Sodium Chloride 0.9% 100 ML IVPB SCH ×4 (06:08→17:34)
[2017-03-11] MEDS: Digoxin 250 mcg (0.25 mg) Tab PO SCH (09:20)
[2017-03-11] MEDS: Enoxaparin 60 mg Syringe SC SCH ×2 (09:21→21:33)
[2017-03-11] MEDS: Alum-Mag Hydrox-Simethicone Susp (30 mL) PO PRN (11:19)
[2017-03-11] MEDS: Metoclopramide 10 mg/10 ml Cup PO PRN ×2 (13:17→17:31)
--- NOTE | 2017-03-11 14:10 | PN ---
DATE: 03/11/2017 SUBJECTIVE: The patient is seen and examined. Interims events noted. The patient remains in transitional care unit. The patient feels okay. Tolerating p.o. very well, passing gas and moving bowels without any problem. No chest pain. No shortness of breath, wheezing or cough. Working with physical therapy, but missed physical therapy today. PHYSICAL EXAMINATION GENERAL: The patient is in no acute distress. VITAL SIGNS: Vital signs are stable. HEART: S1 and S2 normal and regular. LUNGS: Good bilateral air entry. ABDOMEN: Soft and nontender. Surgical site is clean. No sign of complication. Colostomy is in good place and functioning with stool and gas. EXTREMITIES: No edema. No calf tenderness. No acute ischemia. CENTRAL NERVOUS SYSTEMS: Essentially unchanged. DIAGNOSTIC DATA: Available diagnostic data reviewed. IMPRESSION: Overall, patient's general medical condition is stable and improving. PLAN: As ordered. Migue Wells MD
[2017-03-12] MEDS: Piperacillin/Tazobact 3.375 GM in Sodium Chloride 0.9% 100 ML IVPB SCH ×4 (01:08→17:22)
[2017-03-12] MEDS: Digoxin 250 mcg (0.25 mg) Tab PO SCH (08:22)
[2017-03-12] MEDS: Enoxaparin 60 mg Syringe SC SCH ×2 (08:23→21:49)
[2017-03-12] MEDS: Metoclopramide 10 mg/10 ml Cup PO PRN (08:24)
[2017-03-13] MEDS: Piperacillin/Tazobact 3.375 GM in Sodium Chloride 0.9% 100 ML IVPB SCH ×5 (00:42→23:32)
[2017-03-13 07:23] LABS: HEMATOCRIT 29.9 % (34.0-47.0); MEAN CELL VOLUME 93.5 fl (81.0-99.0); MEAN CORPUSCULAR HEMOGLOBIN 31.2 pg (27.0-31.0); MEAN CORPUSCULAR HGB CONC 33.3 g/dL (33.0-37.0); RED CELL DISTRIBUTION WIDTH 15.3 % (11.5-14.5); WHITE BLOOD COUNT 4.6 K/uL (4.8-10.8)
--- NOTE | 2017-03-13 10:29 | PN ---
DATE: 03/13/2017 SUBJECTIVE: The patient is seen and examined. Interim events noted. The patient remains in transitional care unit. The patient feels okay, has some abdominal pain and also has some right knee pain and therapy, as the patient had fracture in the past. No acute pain. Pain is adequately controlled on current pain medications. PHYSICAL EXAMINATION GENERAL: The patient is in no acute distress. VITAL SIGNS: Vital signs are stable. HEART: S1 and S2 normal and regular. LUNGS: Good bilateral air exchange. ABDOMEN: The patient is status post surgery and colostomy. Surgical site is clean. Colostomy is functioning properly. The abdomen is otherwise non-acute. Abdomen is soft and nontender. No organomegaly. Noted bowel sounds. No guarding. No rigidity. No rebound. EXTREMITIES: No edema. No calf swelling. No tenderness. No acute ischemia. CENTRAL NERVOUS SYSTEMS: Essentially unchanged. DIAGNOSTIC DATA: Available diagnostic data reviewed. IMPRESSION: Overall, the patient's general medical condition is stable and the patient is really improving. PLAN: As ordered. Migue Wells MD
[2017-03-13] MEDS: Digoxin 250 mcg (0.25 mg) Tab PO SCH (10:44)
[2017-03-13] MEDS: Enoxaparin 60 mg Syringe SC SCH ×2 (10:45→20:41)
[2017-03-13] MEDS: Alum-Mag Hydrox-Simethicone Susp (30 mL) PO PRN (10:50)
--- NOTE | 2017-03-13 10:58 | CP.PCM.PN ---
<Preston Coles - Last Filed: 03/13/17 10:59> Subjective - Date & Time of Evaluation Date of Evaluation: 03/13/17 Time of Evaluation: 10:56 - Subjective Subjective: Surgery: Dr. Kaba Pt seen and examined. Resting comfortably in bed. Overnight, blood was noted in pts stoma. This morning she has mild abd pain. She denies N/V, no F/C. Objective - Vital Signs/Intake and Output Vital Signs (last 24 hours): Temp Pulse Resp BP Pulse Ox 97.7 F 82 20 112/61 98 03/12/17 22:00 03/12/17 22:00 03/12/17 22:00 03/12/17 22:00 03/12/17 22:00 - Medications Medications: Current Medications Acetaminophen (Tylenol 325mg Tab) 650 mg PO Q6 PRN PRN Reason: Pain, moderate (4-7) Last Admin: 03/08/17 20:46 Dose: 650 mg Al Hydrox/Mg Hydrox/Simethicone (Maalox Plus 30 Ml) 30 ml PO Q6 PRN PRN Reason: Indigestion / Heartburn Last Admin: 03/11/17 11:19 Dose: 30 ml Digoxin (Lanoxin) 0.25 mg PO DAILY [facility] Last Admin: 03/12/17 08:22 Dose: 0.25 mg Docusate Sodium (Colace) 100 mg PO BID [facility] Last Admin: 03/12/17 17:14 Dose: 100 mg Enoxaparin Sodium (Lovenox) 50 mg SC Q12 [facility] PRN Reason: Protocol Last Admin: 03/12/17 21:49 Dose: 50 mg Famotidine (Pepcid) 20 mg PO Q12 [facility] Last Admin: 03/12/17 21:49 Dose: 20 mg Piperacillin Sod/Tazobactam (Sod 3.375 gm/ Sodium Chloride) 100 mls @ 100 mls/ hr IVPB 0000,0600,1200,1800 [facility] Last Admin: 03/13/17 06:10 Dose: 100 mls/hr Metoclopramide HCl (Reglan) 10 mg PO ACHS PRN PRN Reason: Nausea/Vomiting Last Admin: 03/12/17 08:24 Dose: 10 mg Tramadol HCl (Ultram) 50 mg PO Q6 PRN PRN Reason: Pain, moderate (4-7) Last Admin: 03/12/17 14:25 Dose: 50 mg - Labs Labs: 03/13/17 07:15 - Constitutional Appears: Non-toxic, No Acute Distress - Head Exam Head Exam: ATRAUMATIC, NORMOCEPHALIC - Eye Exam Eye Exam: EOMI - ENT Exam ENT Exam: Mucous Membranes Moist - Neck Exam Neck Exam: Full ROM - Respiratory Exam Respiratory Exam: NORMAL BREATHING PATTERN. absent: Accessory Muscle Use, Respiratory Distress - GI/Abdominal Exam GI & Abdominal Exam: Soft. absent: Distended, Firm, Guarding, Rigid, Tenderness Additional comments: midline incision C/D/I w. haroldo Stoma: pink and patent, faint streaks of blood noted, soft formed brown stool in bag - Neurological Exam Neurological Exam: Alert, Awake, Oriented x3 Assessment and Plan - Assessment and Plan (Free Text) Assessment: 89F w. diverticulitis, s/p Harmon's POD#13 -H/H stable -monitor stoma for further bloody output -c/w current medical management -no intervention planned at this time -will d/w attending Zemaitis PGY3 <Damon Kaba - Last Filed: 03/13/17 15:53> Subjective - Date & Time of Evaluation Time of Evaluation: 15:30 - Subjective Subjective: Patient was seen and examined at the bedside. Agree with resident's note above. Objective - Vital Signs/Intake and Output Vital Signs (last 24 hours): Temp Pulse Resp BP Pulse Ox 97.9 F 72 20 117/69 97 03/13/17 12:22 03/13/17 12:22 03/13/17 12:22 03/13/17 12:22 03/13/17 12:22 - Medications Medications: Current Medications Acetaminophen (Tylenol 325mg Tab) 650 mg PO Q6 PRN PRN Reason: Pain, moderate (4-7) Last Admin: 03/08/17 20:46 Dose: 650 mg Al Hydrox/Mg Hydrox/Simethicone (Maalox Plus 30 Ml) 30 ml PO Q6 PRN PRN Reason: Indigestion / Heartburn Last Admin: 03/13/17 10:50 Dose: 30 ml Digoxin (Lanoxin) 0.25 mg PO DAILY [facility] Last Admin: 03/13/17 10:44 Dose: 0.25 mg Docusate Sodium (Colace) 100 mg PO BID [facility] Last Admin: 03/13/17 10:44 Dose: 100 mg Enoxaparin Sodium (Lovenox) 50 mg SC Q12 [facility] PRN Reason: Protocol Last Admin: 03/13/17 10:45 Dose: 50 mg Famotidine (Pepcid) 20 mg PO Q12 [facility] Last Admin: 03/13/17 10:45 Dose: 20 mg Piperacillin Sod/Tazobactam (Sod 3.375 gm/ Sodium Chloride) 100 mls @ 100 mls/ hr IVPB 0000,0600,1200,1800 [facility] Last Admin: 03/13/17 12:44 Dose: 100 mls/hr Metoclopramide HCl (Reglan) 10 mg PO ACHS PRN PRN Reason: Nausea/Vomiting Last Admin: 03/12/17 08:24 Dose: 10 mg Tramadol HCl (Ultram) 50 mg PO Q6 PRN PRN Reason: Pain, moderate (4-7) Last Admin: 03/13/17 14:20 Dose: 50 mg - Labs Labs: 03/13/17 07:15 Assessment and Plan - Assessment and Plan (Free Text) Plan: - No further general surgery intervention at present time - General surgery will sign off - Please re-consult as needed
[2017-03-13 11:31] LABS: RBC URINE 2 /hpf (0-3); URINE BILIRUBIN NEGATIVE (NEGATIVE); URINE BLOOD SMALL (NEGATIVE); URINE COLOR YELLOW (YELLOW); URINE GLUCOSE (UA) NEG (Normal); URINE KETONE NEGATIVE (NEGATIVE); URINE LEUKOCYTE ESTERASE NEG Leu/uL (Negative); URINE PROTEIN NEGATIVE (NEGATIVE); URINE UROBILINOGEN 0.2-1.0 mg/dL (0.2-1.0); WBC URINE 2 /hpf (0-5)
[2017-03-13] MEDS: Metoclopramide 10 mg/10 ml Cup PO PRN (20:38)
[2017-03-14] MEDS: Piperacillin/Tazobact 3.375 GM in Sodium Chloride 0.9% 100 ML IVPB SCH ×3 (06:50→17:52)
[2017-03-14] MEDS: Enoxaparin 60 mg Syringe SC SCH ×2 (09:20→21:16)
[2017-03-14] MEDS: Digoxin 250 mcg (0.25 mg) Tab PO SCH (09:21)
--- NOTE | 2017-03-14 14:29 | PN ---
DATE: 03/14/2017 SUBJECTIVE: The patient was seen and examined. Interim events noted. Surgical followup and intervention noted and appreciated. The patient remains in transitional care unit. The patient is awake, arousable, feels okay. Denies any specific complaints. Pain is adequately controlled with tramadol. PHYSICAL EXAMINATION: GENERAL: The patient is in no acute distress. VITAL SIGNS: Stable. Physical exam is essentially unchanged. DIAGNOSTIC DATA: Available diagnostic data reviewed. IMPRESSION: Overall, the patient's general medical condition is stable. PLAN: As ordered. Migue Wells MD
[2017-03-14 16:52] LABS: HEMATOCRIT 34.4 % (34.0-47.0); MEAN CELL VOLUME 94.1 fl (81.0-99.0); MEAN CORPUSCULAR HEMOGLOBIN 30.9 pg (27.0-31.0); MEAN CORPUSCULAR HGB CONC 32.9 g/dL (33.0-37.0); WHITE BLOOD COUNT 4.3 K/uL (4.8-10.8)
[2017-03-14 17:00] LABS: ALKALINE PHOSPHATASE 78 U/L (38-126); ALT/SGPT 61 U/L (9-52); AST/SGOT 52 U/L (14-36); BILIRUBIN,TOTAL 0.5 mg/dl (0.2-1.3); BLOOD UREA NITROGEN 6 mg/dl (7-17); CALCIUM 8.8 mg/dL (8.4-10.2); CARBON DIOXIDE 25 mmol/L (22-30); CHLORIDE 104 mmol/L (98-107); GFR AFRICAN-AMERICAN > 60; GLUCOSE,RANDOM 131 mg/dL (65-105); POTASSIUM 3.6 MMOL/L (3.6-5.0); SODIUM 138 mmol/l (132-148); TOTAL PROTEIN 6.9 G/DL (6.3-8.2)
[2017-03-14] MEDS: Alum-Mag Hydrox-Simethicone Susp (30 mL) PO PRN (17:53)
[2017-03-15] MEDS: Piperacillin/Tazobact 3.375 GM in Sodium Chloride 0.9% 100 ML IVPB SCH ×3 (00:10→12:51)
[2017-03-15] MEDS: Digoxin 250 mcg (0.25 mg) Tab PO SCH (09:15)
[2017-03-15] MEDS: Enoxaparin 60 mg Syringe SC SCH ×2 (09:15→21:06)
--- NOTE | 2017-03-15 13:22 | PN ---
DATE: 03/15/2017 SUBJECTIVE: The patient seen and examined. Interim events noted. Telephone orders were given. The patient was found to have some blood in colostomy and also had abdominal pain yesterday. Currently, the patient has no abdominal pain and no episode of further bleeding from colostomy. PHYSICAL EXAMINATION: GENERAL: The patient is in no acute distress. VITAL SIGNS: Stable. HEART: S1 and S2 normal, regular. LUNGS: Good bilateral air exchange. ABDOMEN: Colostomy tube is in good position and functioning with stool and gas. Fecal site is clean. No sign of acute complication. There is no sign of acute abdomen. No guarding, no rigidity, no rebound. Bowel sounds are present and normal. EXTREMITIES: No edema. No calf swelling. No tenderness. No acute ischemia. CENTRAL NERVOUS SYSTEM: Essentially unchanged. DIAGNOSTIC DATA: Available diagnostic data reviewed. ASSESSMENT: Overall, the patient's general medical condition is stable. No sign of acute complications. We are awaiting surgical followup. PLAN: As ordered. Case and plan discussed with the patient. Migue Wells MD
--- NOTE | 2017-03-16 08:32 | PN ---
DATE: 03/12/2017 SUBJECTIVE: The patient is seen and examined. Interim events noted. The patient remains in transitional care unit, feels much better, pain controlled. No chest pain. No shortness of breath. PHYSICAL EXAMINATION: GENERAL: The patient is in no acute distress. VITAL SIGNS: Stable. HEART: S1 and S2 normal and regular. LUNGS: Good bilateral air entry. ABDOMEN: The patient is status post surgery. Colostomy is in good position and function. Surgical site is clean. [place] are intact. No sign of acute complication. No guarding. No rigidity. No rebound. Bowel sounds are present normal. EXTREMITIES: No edema. No calf swelling. No tenderness. No acute ischemia. CENTRAL NERVOUS SYSTEM: Essentially unchanged. DIAGNOSTIC DATA: Available diagnostic data reviewed. IMPRESSION: The patient's general medical condition is stable. PLAN: As ordered. Migue Wells MD
[2017-03-16] MEDS: Enoxaparin 60 mg Syringe SC SCH ×2 (09:06→20:46)
[2017-03-16] MEDS: Digoxin 250 mcg (0.25 mg) Tab PO SCH (09:06)
--- NOTE | 2017-03-16 13:13 | PN ---
DATE: 03/16/2017 SUBJECTIVE: The patient seen and examined. Interim events noted. The patient remains in transitional care unit. The patient is sleeping, arousable, feels okay. Denies any specific compliant. No chest pain or shortness of breath. Abdominal pain is controlled. PHYSICAL EXAMINATION: GENERAL: The patient is in no acute distress. VITAL SIGNS: Stable. HEART: S1 and S2, normal and regular. LUNGS: Good bilateral air exchange. ABDOMEN: Surgical site is clean without any overt complication. Colostomy is in good position and function. Abdomen is very soft, nontender. No organomegaly. No fluids. Bowel sounds are present. No sign of acute abdomen. No guarding, no rigidity, no rebound. EXTREMITIES: No edema. No calf swelling, no tenderness. No acute ischemia. ASSISTANT DIRECTOR OF SECURITY: Essentially unchanged. ASSESSMENT: Overall, the patient is medically stable for possible staple removal on . PLAN: As ordered. Migue Wells MD
[2017-03-16] MEDS: Alum-Mag Hydrox-Simethicone Susp (30 mL) PO PRN (14:44)
--- NOTE | 2017-03-16 18:38 | CP.PCM.CON ---
History of Present Illness - History of Present Illness History of Present Illness: Dr Langford PMR consultation on Rosanna Khan, born 1925, who has been admitted to the [facility] TCU following perforated sigmoid from diverticulitis. She underwent a Harmon's procedure 02/28/17 and post op developed bilateral LE DVT. I am asked to see her given pain in PT making things difficult. She is quite frail and is on Tramadol. She should be given this medication as a pre- medication. At this point given her age and frailty I do not want to start her on stronger narcotics Review of Systems - Constitutional Constitutional: absent: Chills - EENT Eyes: absent: Change in Vision Ears: absent: Disequilibrium, Dizziness Nose/Mouth/Throat: absent: Nasal Congestion - Cardiovascular Cardiovascular: absent: Chest Pain - Respiratory Respiratory: absent: Dyspnea, Wheezing - Gastrointestinal Gastrointestinal: absent: Belching, Constipation (has colostomy), Diarrhea - Musculoskeletal Musculoskeletal: Back Pain - Neurological Neurological: absent: Abnormal Movements Past Patient History - Infectious Disease Hx of Infectious Diseases: None - Past Medical History & Family History Past Medical History?: Yes - Past Social History Smoking Status: Never Smoked Alcohol: None Drugs: Denies Home Situation {Lives}: With Family (elevator with 4 entry steps) - CARDIAC Hx Cardiac Disorders: Yes Hx Congestive Heart Failure: Yes - PULMONARY Hx Respiratory Disorders: No - NEUROLOGICAL Hx Neurological Disorder: No - HEENT Hx HEENT Problems: No - RENAL Hx Chronic Kidney Disease: No - ENDOCRINE/METABOLIC Hx Endocrine Disorders: No - HEMATOLOGICAL/ONCOLOGICAL Hx AIDS: No Hx Anemia: Yes Hx Human Immunodeficiency Virus (HIV): No - INTEGUMENTARY Hx Dermatological Problems: No - MUSCULOSKELETAL/RHEUMATOLOGICAL Hx Arthritis: Yes Hx Falls: No - GASTROINTESTINAL Hx Diverticulitis: Yes Hx Gastritis: Yes - GENITOURINARY/GYNECOLOGICAL Hx Genitourinary Disorders: No - PSYCHIATRIC Hx Substance Use: No - SURGICAL HISTORY Hx Appendectomy: Yes Hx Cholecystectomy: Yes Other/Comment: as per pt hernia repair - ANESTHESIA Hx Anesthesia: Yes Hx Anesthesia Reactions: No Hx Malignant Hyperthermia: No Meds Allergies/Adverse Reactions: Allergies Allergy/AdvReac Type Severity Reaction Status Date / Time apple Allergy SHORTNESS Verified 03/08/17 16:25 OF BREATH banana Allergy SHORTNESS Verified 03/08/17 16:25 OF BREATH FISH Allergy SHORTNESS Verified 03/08/17 16:25 OF BREATH iodine Allergy SHORTNESS Verified 03/08/17 16:25 OF BREATH latex Allergy RASH Verified 03/08/17 16:25 codeine AdvReac ANAPHYLAXIS Verified 03/08/17 16:25 lidocaine AdvReac ANAPHYLAXIS Verified 03/08/17 16:25 - Medications Medications: Current Medications Acetaminophen (Tylenol 325mg Tab) 650 mg PO Q6 PRN PRN Reason: Pain, moderate (4-7) Last Admin: 03/08/17 20:46 Dose: 650 mg Al Hydrox/Mg Hydrox/Simethicone (Maalox Plus 30 Ml) 30 ml PO Q6 PRN PRN Reason: Indigestion / Heartburn Last Admin: 03/16/17 14:44 Dose: 30 ml Digoxin (Lanoxin) 0.25 mg PO DAILY [facility] Last Admin: 03/16/17 09:06 Dose: 0.25 mg Docusate Sodium (Colace) 100 mg PO BID [facility] Last Admin: 03/16/17 17:13 Dose: Not Given Enoxaparin Sodium (Lovenox) 50 mg SC Q12 [facility] PRN Reason: Protocol Last Admin: 03/16/17 09:06 Dose: 50 mg Famotidine (Pepcid) 20 mg PO Q12 [facility] Last Admin: 03/16/17 09:06 Dose: 20 mg Metoclopramide HCl (Reglan) 10 mg PO ACHS PRN PRN Reason: Nausea/Vomiting Last Admin: 03/13/17 20:38 Dose: 10 mg Tramadol HCl (Ultram) 50 mg PO Q6 PRN PRN Reason: Pain, moderate (4-7) Last Admin: 03/16/17 13:40 Dose: 50 mg Physical Exam - Constitutional Appears: Non-toxic, No Acute Distress, Cachectic (she looks much older than I remember her although it was likely over 7 years ago that I last saw her when I treated her for many years) - Head Exam Head Exam: ATRAUMATIC - Eye Exam Eye Exam: EOMI, Normal appearance - ENT Exam ENT Exam: Mucous Membranes Moist - Respiratory Exam Respiratory Exam: NORMAL BREATHING PATTERN - GI/Abdominal Exam GI & Abdominal Exam: Tenderness (mild, + haroldo and colostomy) - Extremities Exam Extremities exam: Negative for: calf tenderness (in spite of bilateral DVT) - Neurological Exam Neurological exam: Alert, CN II-XII Intact, Oriented x3 - Psychiatric Exam Psychiatric exam: Normal Affect, Normal Mood Results - Vital Signs Recent Vital Signs: Last Vital Signs Temp 97.3 F L 03/16/17 16:34 Pulse 86 03/16/17 16:34 Resp 20 03/16/17 16:34 BP 121/81 03/16/17 16:34 Pulse Ox 98 03/16/17 16:34 - Labs Result Diagrams: 03/14/17 16:30 03/14/17 16:30 Assessment & Plan - Assessment and Plan (Free Text) Assessment: I will order the Tramadol as a standing dose pre-medication
[2017-03-16] MEDS: Metoclopramide 10 mg/10 ml Cup PO PRN (19:37)
[2017-03-17] MEDS: Metoclopramide 10 mg/10 ml Cup PO PRN ×2 (09:14→19:03)
[2017-03-17] MEDS: Digoxin 250 mcg (0.25 mg) Tab PO SCH (09:14)
--- NOTE | 2017-03-17 11:16 | PN ---
DATE: 03/17/2017 SUBJECTIVE: The patient seen and examined. Interim events noted. The patient remains in transitional care unit. Awake, responsive, feels okay. Complaints of occasional nausea, able to tolerate food, moving bowels and gas. No chest pain. No shortness of breath. PHYSICAL EXAMINATION: GENERAL: The patient is in no acute distress. VITAL SIGNS: Stable. HEART: S1 and S2, normal and regular. LUNGS: Good bilateral air exchange. ABDOMEN: The patient is status post surgery; has colostomy, which is functioning and also has staple line, which is clean. Surgical site is clean without any sign or complication. Abdomen is soft. No sign of acute abdomen. No guarding, no rigidity, no rebound. EXTREMITIES: No edema. No calf swelling. No tenderness. No acute ischemia. COLOR GRINDER: Essentially unchanged. DIAGNOSTIC DATA: Available diagnostic data reviewed. ASSESSMENT: Overall, the patient's general medical condition is stable. PLAN: As ordered. Migue Wells MD
[2017-03-18 08:24] VITALS: BP 125/57; PULSE 73; TEMP 97.8; O2SAT 99
[2017-03-18] MEDS: Digoxin 250 mcg (0.25 mg) Tab PO SCH (09:13)
[2017-03-18 09:16] VITALS: PULSE 88
[2017-03-18] MEDS: Metoclopramide 10 mg/10 ml Cup PO PRN (12:12)
--- NOTE | 2017-03-18 14:40 | PN ---
DATE: 03/18/2017 SUBJECTIVE: The patient was seen and examined. Interim events noted. The patient remains in transitional care unit. The patient is awake, arousable, feels okay. Denies any specific complaints. No chest pain and no shortness of breath. Tolerating food very well and no nausea. PHYSICAL EXAMINATION: GENERAL: The patient is in no acute distress. VITAL SIGNS: Stable. HEART: S1 and S2 normal, regular. LUNGS: Good bilateral air entry. GASTROINTESTINAL: Abdomen is soft and nontender. Colostomy is in good position and function. [place] are non-acute. No guarding. No rigidity. No rebound. Bowel sounds are present and normal. EXTREMITIES: No edema. No calf swelling. No tenderness. No acute ischemia. CENTRAL NERVOUS SYSTEMS: Essentially unchanged DIAGNOSTIC DATA: Available diagnostic data reviewed. IMPRESSION: Overall, the patient's fairly improving. PLAN: As ordered. Migue Wells MD
== END 2017-03-18 14:20 | disposition home or self-care (01) | DRG 949 ==
LOC: H.TCU 16:25
PROVIDERS: ADMIT Internal Medicine; ATTEND Internal Medicine
PROC: F08Z2FZ Grooming/Personal Hygiene Treatment using Assistive, Adaptive, Supportive or Protective Equipment (ICD-10-PCS; principal; 2017-03-08)
PROC: F07Z9FZ Gait Training/Functional Ambulation Treatment using Assistive, Adaptive, Supportive or Protective Equipment (ICD-10-PCS; 2017-03-08)
PROC: F08Z1FZ Dressing Techniques Treatment using Assistive, Adaptive, Supportive or Protective Equipment (ICD-10-PCS; 2017-03-08)
PROC: F07L6FZ Therapeutic Exercise Treatment of Musculoskeletal System - Lower Back / Lower Extremity using Assistive, Adaptive, Supportive or Protective Equipment (ICD-10-PCS; 2017-03-08)
DX: Z48.815 Encounter for surgical aftercare following surgery on the digestive system (principal); I82.403 Acute embolism and thrombosis of unspecified deep veins of lower extremity, bilateral; H40.9 Unspecified glaucoma; Z88.4 Allergy status to anesthetic agent; Z93.3 Colostomy status; Z88.6 Allergy status to analgesic agent; Z91.041 Radiographic dye allergy status; Z91.040 Latex allergy status; Z91.013 Allergy to seafood; Z91.018 Allergy to other foods; M81.0 Age-related osteoporosis without current pathological fracture; K29.70 Gastritis, unspecified, without bleeding; G89.29 Other chronic pain

== ENCOUNTER 2017-07-31 12:19 | Inpatient (IN) | payer MEDICARE, OTHER ==
[2017-07-31 12:19] VITALS: BMI 23.2
[2017-07-31] MEDS ORDERED: Sodium Chloride 0.9% 1,000 ML IV STA (12:33)
[2017-07-31 13:22] LABS: BASO % 0.3 % (0.0-2.0); EOS % 0.1 % (0.0-4.0); HEMOGLOBIN 11.8 g/dL (12.0-16.0); LYMPH # 0.6 K/uL (1.0-4.3); MEAN CELL VOLUME 86.2 fl (81.0-99.0); MEAN CORPUSCULAR HEMOGLOBIN 27.9 pg (27.0-31.0); MEAN CORPUSCULAR HGB CONC 32.4 g/dL (33.0-37.0); MEAN PLATELET VOLUME 7.2 fl (7.2-11.7); MONO # 0.3 K/uL (0.0-0.8); MONO % 3.5 % (0.0-10.0); NEUT # 7.1 K/uL (1.8-7.0); NEUT % 89.1 % (50.0-75.0); NRBC % 0.1 % (0.0-0.0); PLATELET COUNT 293 K/uL (130-400); RBC 4.21 Mil/uL (3.80-5.20); RED CELL DISTRIBUTION WIDTH 17.2 % (11.5-14.5)
--- NOTE | 2017-07-31 13:38 | RAD ---
HISTORY: SOB COMPARISON: Chest radiograph dated 02/25/2010. FINDINGS: Markedly limited due to patient rotation. LUNGS: Chronic prominence of the interstitial markings. Questionable peripheral left basilar infiltrate. PLEURA: Questionable left pleural effusion. No pneumothorax apparent. CARDIOVASCULAR: Atherosclerotic aortic calcifications. Cardiomediastinal silhouette poorly evaluated due to patient rotation. OSSEOUS STRUCTURES: Multilevel vertebral augmentation. VISUALIZED UPPER ABDOMEN: Right upper quadrant surgical clips. OTHER FINDINGS: None. IMPRESSION: Limited examination due to patient rotation. Left basilar infiltrate and/or effusion versus overlying soft tissue from patient rotation.
[2017-07-31 13:39] LABS: ALBUMIN 4.2 g/dL (3.5-5.0); CALCIUM 9.7 mg/dL (8.4-10.2); GFR AFRICAN-AMERICAN > 60; GFR NON-AFRICAN AMERICAN > 60
[2017-07-31 13:50] LABS: ALT/SGPT 26 U/L (9-52); AST/SGOT 27 U/L (14-36); BLOOD UREA NITROGEN 13 mg/dl (7-17)
--- NOTE | 2017-07-31 14:44 | US ---
HISTORY: upper abd RUQ/aorta/GB/pancreas COMPARISON: None. TECHNIQUE: Sonographic evaluation of the right upper quadrant of the abdomen. FINDINGS: LIVER: Measures 15.6 cm in length. Normal echogenicity of the liver parenchyma. No mass. No intrahepatic bile duct dilatation. GALLBLADDER: Prior cholecystectomy. COMMON BILE DUCT: Measures 6 mm. No stones. No dilatation. PANCREAS: Not well visualized. RIGHT KIDNEY: Measures 8.4 x 3.6 x 3.4 cm in length. Normal echogenicity. No calculus, mass, or hydronephrosis. Upper pole cysts measuring 1.8 x 1.7 cm and 1.2 x 1.1 cm. Mid/ upper pole cyst measuring 4.7 x 4.9 x 4.5 cm. AORTA: No aneurysmal dilatation. IVC: Unremarkable. OTHER FINDINGS: None . IMPRESSION: Prior cholecystectomy. Right renal cysts.
[2017-07-31] MEDS ORDERED: Alum-Mag Hydrox-Simethicone Susp (30 mL) PO ONE (16:10)
--- NOTE | 2017-07-31 17:14 | ED PDOC ---
HPI: Abdomen Time Seen by Provider: 07/31/17 12:32 Chief Complaint (Nursing): GI Problem Chief Complaint (Provider): vomiting History Per: Patient, Instructor Creeler, Other (friend) History/Exam Limitations: no limitations Onset/Duration Of Symptoms: Days (4), Intermittent Episodes, Gradual Outside of [place] travel?: No Current Symptoms Are (Timing): Still Present Context: Food Location Of Pain/Discomfort: Epigastric Quality Of Discomfort: Cramping Additional History Per: Prior Records Additional Complaint(s): 89yo female w colostomy here for persistent vomiting, weakness, malaise. Denies bloody stools in colostomy bag. Abnormal Vaginal Bleeding: No Past Medical History Reviewed: Historical Data, Nursing Documentation, Vital Signs Vital Signs: Last Vital Signs Temp 98.9 F 08/04/17 08:42 Pulse 68 08/04/17 08:42 Resp 18 08/04/17 08:42 BP 146/73 08/04/17 10:25 Pulse Ox 98 08/04/17 08:42 - Medical History PMH: Anemia, Arthritis, CAD, Cardia Arrhythmia, CHF, Diverticulitis, Gastritis, Hiatal Hernia, Osteoporosis Denies: HIV, Chronic Kidney Disease - Surgical History Surgical History: Appendectomy, Cholecystectomy - Family History Family History: States: Unknown Family Hx - Home Medications Home Medications: Ambulatory Orders Medication Instructions Recorded Acetaminophen [Tylenol 325mg tab] 500 mg PO Q6 PRN 07/31/17 Dicyclomine [Bentyl] 10 mg PO BID 07/31/17 Digoxin [Digitek] 0.25 mg PO DAILY 07/31/17 Docusate Sodium [Stool Softener] 1 cap PO TID 07/31/17 Furosemide [Lasix] 20 mg PO DAILY 07/31/17 Levocetirizine Dihydrochloride 1 cap PO PRN PRN 07/31/17 [Xyzal] Omeprazole Magnesium [Prilosec Otc] 40 mg PO DAILY 07/31/17 Ondansetron HCl [Zofran] 4 mg PO PRN PRN 07/31/17 traMADol [Ultram] 50 mg PO Q6 07/31/17 - Allergies Allergies/Adverse Reactions: Allergies Allergy/AdvReac Type Severity Reaction Status Date / Time apple Allergy SHORTNESS Verified 03/08/17 16:25 OF BREATH banana Allergy SHORTNESS Verified 03/08/17 16:25 OF BREATH FISH Allergy SHORTNESS Verified 03/08/17 16:25 OF BREATH iodine Allergy SHORTNESS Verified 03/08/17 16:25 OF BREATH latex Allergy RASH Verified 03/08/17 16:25 codeine AdvReac ANAPHYLAXIS Verified 03/08/17 16:25 lidocaine AdvReac ANAPHYLAXIS Verified 03/08/17 16:25 Review of Systems Constitutional: Positive for: Weakness, Malaise. Negative for: Fever, Chills Cardiovascular: Negative for: Chest Pain Gastrointestinal: Positive for: Nausea, Vomiting, Abdominal Pain. Negative for : Diarrhea, Constipation, Hematochezia, Hematemesis Musculoskeletal: Negative for: Neck Pain, Back Pain Neurological: Positive for: Weakness, Headache, Dizziness Psych: Positive for: Anxiety Physical Exam - Reviewed Nursing Documentation Reviewed: Yes Vital Signs Reviewed: Yes - Physical Exam Appears: Positive for: Well, Non-toxic, No Acute Distress Head Exam: Positive for: ATRAUMATIC, NORMAL INSPECTION, NORMOCEPHALIC Skin: Positive for: Normal Color, Warm, DRY Eye Exam: Positive for: EOMI, Normal appearance, PERRL ENT: Positive for: Normal ENT Inspection Neck: Positive for: Normal, Painless ROM Cardiovascular/Chest: Positive for: Regular Rate, Rhythm Respiratory: Positive for: CNT, Normal Breath Sounds Gastrointestinal/Abdominal: Positive for: Bowel Sounds, Soft, Tenderness (mild diffuse), Other (colostomy +brown stool). Negative for: Guarding, Rebound Back: Positive for: Normal Inspection Extremity: Positive for: Normal ROM Neurologic/Psych: Positive for: Alert, Oriented - Laboratory Results Result Diagrams: 08/03/17 05:50 08/03/17 05:50 - ECG O2 Sat by Pulse Oximetry: 97 Medical Decision Making Medical Decision Making: labs reviewed WBC normal Dig level nontherapeutic ? compliance w meds at home US abd pelv obtained and report reviewed Not improved in ED despite fluid therapy Admit Dr Wells Disposition - Clinical Impression Clinical Impression: Gastroenteritis, Abdominal pain - Patient ED Disposition Is Patient to be Admitted: Yes - Disposition Disposition: Routine/Home Disposition Time: 15:30 Condition: STABLE - Pt Status Changed To: Hospital Disposition Of: Observation
[2017-07-31 18:27] LABS: BANDS 2 % (0-2); LYMPHOCYTE 7 % (20-50); NEUTROPHIL 91 % (42-75); TOTAL CELLS COUNTED 100
[2017-07-31 18:28] LABS: PLATELET ESTIMATE NORMAL (NORMAL)
[2017-07-31 18:29] LABS: ANISOCYTOSIS SLIGHT; POIKILOCYTOSIS SLIGHT
[2017-07-31 18:30] LABS: HYPOCHROMIC SLIGHT
[2017-07-31 18:31] LABS: TOXIC GRANULATION PRESENT
[2017-07-31 18:33] LABS: OVALOCYTES SLIGHT; STOMATOCYTES SLIGHT
[2017-07-31 18:34] LABS: TEARDROP CELLS SLIGHT
[2017-07-31 18:35] LABS: LARGE PLATELETS PRESENT
[2017-07-31] MEDS ORDERED: Sodium Chloride 0.9% 1,000 ML IV SCH (23:30)
--- NOTE | 2017-07-31 23:31 | CP.PCM.HP ---
<Corrina Boykin - Last Filed: 08/03/17 20:48> History of Present Illness - History of Present Illness History of Present Illness: vomiting and unable to tolerate PO with history significant for Diverticulitis s /p colon resection and colostomy Review of Systems - Review of Systems All systems: reviewed and no additional remarkable complaints except - Constitutional Constitutional: absent: Anorexia, Chills, Daytime Sleepiness, Excessive Sweating , Fatigue, Fever, Frequent Falls, Headache, Increased Appetite, Lethargy, Malaise, Night Sweats, Snoring, Sleep Apnea, Weight Gain, Weight Loss, Weakness , Other - EENT Eyes: absent: As Per HPI, Blind Spots, Blurred Vision, Change in Vision, Decreased Night Vision, Diplopia, Discharge, Dry Eye, Exophthalmos, Floaters, Irritation, Itchy Eyes, Loss of Peripheral Vision, Pain, Photophobia, Requires Corrective Lenses, Sees Flashes, Spots in Vision, Tunnel Vision, Other Visual Disturbances, Loss of Vision, Other Nose/Mouth/Throat: As Per HPI. absent: Epistaxis, Nasal Congestion, Nasal Discharge, Nasal Obstruction, Nasal Trauma, Nose Pain, Post Nasal Drip, Sinus Pain, Sinus Pressure, Bleeding Gums, Change in Voice, Dental Pain, Dry Mouth, Dysphagia, Halitosis, Hoarsness, Lip Swelling, Mouth Lesions, Mouth Pain, Odynophagia, Sore Throat, Throat Swelling, Tongue Swelling, Facial Pain, Neck Pain, Neck Mass, Other - Cardiovascular Cardiovascular: absent: As Per HPI, Acrocyanosis, Chest Pain, Chest Pain at Rest , Chest Pain with Activity, Claudication, Diaphoresis, Dyspnea, Dyspnea on Exertion, Edema, Irregular Heart Rhythm, Pain Radiating to Arm/Neck/Jaw, Leg Edema, Leg Ulcers, Lightheadedness, Orthopnea, Palpitations, Paroxysmal Nocturnal Dyspnea, Pedal Edema, Radiating Pain, Rapid Heart Rate, Slow Heart Rate, Syncope, Other - Respiratory Respiratory: absent: As Per HPI, Cough, Dyspnea, Hemoptysis, Dyspnea on Exertion , Wheezing, Snoring, Stridor, Pain on Inspiration, Chest Congestion, Excessive Mucous Production, Change in Mucous Color, Pain with Coughing, Other - Gastrointestinal Gastrointestinal: Abdominal Pain, Dyspepsia, Nausea, Vomiting. absent: As Per HPI, Belching, Bloating, Change in Bowel Habits, Change in Stool Character, Coffee Ground Emesis, Constipation, Cramping, Diarrhea, Dysphagia, Early Satiety , Excessive Flatus, Fecal Incontinence, Heartburn, Hematemesis, Hematochezia, Loose Stools, Melena, Odynophagia, Temesmus, Other - Genitourinary Genitourinary: absent: As Per HPI, Change in Urinary Stream, Difficulty Urinating, Dysuria, Flank Pain, Hematuria, Pyuria, Nocturia, Urinary Incontinence, Urinary Frequency, Urinary Hesitance, Urinary Urgency, Voiding Freq/Small Amts, Freq UTI, Hx Renal/Bladder Calculi, Hx /Renal Surgery, Bladder Distension, Other - Musculoskeletal Musculoskeletal: absent: As Per HPI, Abnormal Gait, Arthralgias, Atrophy, Back Pain, Deformity, Joint Swelling, Limited Range of Motion, Loss of Height, Muscle Cramps, Muscle Weakness, Myalgias, Neck Pain, Numbness, Radiating Pain into Limb, Stiffness, Tingling, Other - Integumentary Integumentary: absent: As Per HPI, Acne, Alopecia, Bleeding Lesions, Change in Hair, Change in Nails, Change in Pigmentation, Changing Lesions, Dry Skin, Erythema, Furuncle, Hirsutism, Lesions, New Lesions, Non-Healing Lesions, Photosensitivity, Pruritus, Rash, Skin Pain, Skin Ulcer, Sores, Striae, Swelling , Unusual Bruising, Wounds, Jaundice, Other - Neurological Neurological: absent: As Per HPI, Abnormal Gait, Abnormal Hearing, Abnormal Movements, Abnormal Speech, Behavioral Changes, Burning Sensations, Confusion, Convulsions, Disequilibrium, Dizziness, Numbness, Focal Weakness, Frequent Falls , Headaches, Lack of Coordination, Loss of Vision, Memory Loss, Paresthesias, Radicular Pain, Restless Legs, Sensory Deficit, Syncope, Tingling, Tremor, Vertigo, Weakness, Other Visual Disturbances, Other - Psychiatric Psychiatric: absent: As Per HPI, Abnormal Sleep Pattern, Anhedonia, Anxiety, Auditory Hallucinations, Behavioral Changes, Change in Appetite, Change in Libido, Confusion, Depression, Difficulty Concentrating, Hallucinations, Homicidal Ideation, Hopelessness, Irritability, Memory Loss, Mood Swings, Panic Attacks, Paranoia, Suicidal Ideation, Visual Hallucinations, Tactile Hallucinations, Other - Endocrine Endocrine: absent: As Per HPI, Change in Body Appearance, Change in Libido, Cold Intolorance, Deepening of Voice, Excessive Sweating, Fatigue, Flushing, Heat Intolorance, Increase in Ring/Shoe/Hat Size, Palpitations, Polydipsia, Polyphagia, Polyuria, Other - Hematologic/Lymphatic Hematologic: absent: As Per HPI, Easy Bleeding, Easy Bruising, Lymphadenopathy, Other Past Patient History - Infectious Disease Hx of Infectious Diseases: None - Past Medical History & Family History Past Medical History?: Yes - Past Social History Smoking Status: Former Smoker - CARDIAC Hx Cardia Arrhythmia: Yes Hx Congestive Heart Failure: Yes - PULMONARY Hx Respiratory Disorders: No - NEUROLOGICAL Hx Neurological Disorder: No - HEENT Hx HEENT Problems: No - RENAL Hx Chronic Kidney Disease: No - ENDOCRINE/METABOLIC Hx Endocrine Disorders: Yes - HEMATOLOGICAL/ONCOLOGICAL Hx Anemia: Yes Hx Human Immunodeficiency Virus (HIV): No - INTEGUMENTARY Hx Dermatological Problems: No - MUSCULOSKELETAL/RHEUMATOLOGICAL Hx Arthritis: Yes Hx Falls: No Hx Osteoporosis: Yes - GASTROINTESTINAL Hx Gastrointestinal Disorders: Yes Hx Colostomy: Yes Hx Constipation: Yes Hx Diverticulitis: Yes Hx Gastritis: Yes Hx Vomiting: Yes - GENITOURINARY/GYNECOLOGICAL Hx Genitourinary Disorders: No - PSYCHIATRIC Hx Psychophysiologic Disorder: Yes - SURGICAL HISTORY Hx Surgeries: Yes (colostomy) Hx Appendectomy: Yes Hx Cholecystectomy: Yes - ANESTHESIA Hx Anesthesia: Yes Hx Anesthesia Reactions: No Hx Malignant Hyperthermia: No Meds Allergies/Adverse Reactions: Allergies Allergy/AdvReac Type Severity Reaction Status Date / Time apple Allergy SHORTNESS Verified 03/08/17 16:25 OF BREATH banana Allergy SHORTNESS Verified 03/08/17 16:25 OF BREATH FISH Allergy SHORTNESS Verified 03/08/17 16:25 OF BREATH iodine Allergy SHORTNESS Verified 03/08/17 16:25 OF BREATH latex Allergy RASH Verified 03/08/17 16:25 codeine AdvReac ANAPHYLAXIS Verified 03/08/17 16:25 lidocaine AdvReac ANAPHYLAXIS Verified 03/08/17 16:25 Physical Exam - Constitutional Appears: Well, Non-toxic, No Acute Distress - Head Exam Head Exam: ATRAUMATIC, NORMAL INSPECTION, NORMOCEPHALIC - Eye Exam Eye Exam: EOMI, Normal appearance, PERRL Pupil Exam: NORMAL ACCOMODATION, PERRL - ENT Exam ENT Exam: Mucous Membranes Moist, Normal Exam - Neck Exam Neck exam: Positive for: Normal Inspection - Respiratory Exam Respiratory Exam: Clear to Auscultation Bilateral, NORMAL BREATHING PATTERN - Cardiovascular Exam Cardiovascular Exam: REGULAR RHYTHM, +S1, +S2 - GI/Abdominal Exam GI & Abdominal Exam: Normal Bowel Sounds, Soft. absent: Bruit, Diminished Bowel Sounds, Distended, Firm, Guarding, Hernia, Hyperactive Bowel Sounds, Hypoactive Bowel Sounds, Mass, Organomegaly, Pulsatile Mass, Rebound, Rigid, Tenderness Additional comments: LLQ colostomy, looks clean, no stool in bag - Rectal Exam Rectal Exam: NORMAL INSPECTION - Extremities Exam Extremities exam: Positive for: full ROM, normal capillary refill, normal inspection, pedal pulses present. Negative for: calf tenderness, joint swelling , pedal edema, tenderness - Back Exam Back exam: FULL ROM, NORMAL INSPECTION. absent: CVA tenderness (L), CVA tenderness (R), muscle spasm, paraspinal tenderness, rash noted, tenderness, vertebral tenderness - Neurological Exam Neurological exam: Alert, CN II-XII Intact, Oriented x3, Reflexes Normal - Psychiatric Exam Psychiatric exam: Normal Affect - Skin Skin Exam: Dry, Intact, Normal Color Results - Vital Signs Recent Vital Signs: Last Vital Signs Temp 99.2 F 07/31/17 18:15 Pulse 84 07/31/17 18:15 Resp 18 07/31/17 18:15 BP 134/76 07/31/17 18:15 Pulse Ox 96 07/31/17 18:15 - Labs Result Diagrams: 08/03/17 05:50 08/03/17 05:50 Labs: Laboratory Results - last 24 hr 07/31/17 07/31/17 07/31/17 12:40 13:00 13:00 WBC 8.0 D RBC 4.21 Hgb 11.8 L Hct 36.3 MCV 86.2 D MCH 27.9 MCHC 32.4 L RDW 17.2 H Plt Count 293 D MPV 7.2 Neut % (Auto) 89.1 H Lymph % (Auto) 7.0 L Hays % (Auto) 3.5 Eos % (Auto) 0.1 Baso % (Auto) 0.3 Neut # 7.1 H Lymph # 0.6 L Hays # 0.3 Eos # 0.0 Baso # 0.0 Neutrophils % (Manual) 91 H Band Neutrophils % 2 Lymphocytes % (Manual) 7 L Monocytes % (Manual) TEST NOT PERFORMED Toxic Granulation Present Platelet Estimate Normal Large Platelets Present Hypochromasia (manual) Slight Poikilocytosis (manual Slight Anisocytosis (manual) Slight Tear Drop Cells Slight Ovalocytes Slight Stomatocytes Slight Sodium 139 Potassium 4.1 Chloride 97 L Carbon Dioxide 32 H Anion Gap 14 BUN 13 Creatinine 0.6 L Est GFR ( Amer) > 60 Est GFR (Non-Af Amer) > 60 POC Glucose (mg/dL) 132 H Random Glucose 138 H Calcium 9.7 Total Bilirubin 0.5 AST 27 ALT 26 Alkaline Phosphatase 78 Troponin I 0.0150 Total Protein 8.4 H Albumin 4.2 Globulin 4.2 H Albumin/Globulin Ratio 1.0 Digoxin 07/31/17 13:00 WBC RBC Hgb Hct MCV MCH MCHC RDW Plt Count MPV Neut % (Auto) Lymph % (Auto) Hays % (Auto) Eos % (Auto) Baso % (Auto) Neut # Lymph # Hays # Eos # Baso # Neutrophils % (Manual) Band Neutrophils % Lymphocytes % (Manual) Monocytes % (Manual) Toxic Granulation Platelet Estimate Large Platelets Hypochromasia (manual) Poikilocytosis (manual Anisocytosis (manual) Tear Drop Cells Ovalocytes Stomatocytes Sodium Potassium Chloride Carbon Dioxide Anion Gap BUN Creatinine Est GFR ( Amer) Est GFR (Non-Af Amer) POC Glucose (mg/dL) Random Glucose Calcium Total Bilirubin AST ALT Alkaline Phosphatase Troponin I Total Protein Albumin Globulin Albumin/Globulin Ratio Digoxin < 0.4 L Assessment & Plan (1) Abdominal pain Assessment and Plan: with reported vomiting, no vomiting episode observed while here, she is eating well, tolerating [employer] food and milk shake, afebriel, according to [employer], she didn't have any vomiting, her abdominal exam also benign, we will start her on PPI, gentle IVF hydration, have GI to see her, pt requesting an endoscopy, will consult with GI Status: Chronic Priority: Medium - Assessment and Plan (Free Text) Assessment: H/o perforated diverticulitis s/o colostomy, CT of abd negative, will control her pain, liquid diet and monitor H/o HTN without heart failure, will continue home med GI and DVT PPX Colostomy care <Migue Wlels - Last Filed: 08/24/17 13:41> Results - Vital Signs Recent Vital Signs: Last Vital Signs Temp 98.9 F 08/04/17 08:42 Pulse 68 08/04/17 08:42 Resp 18 08/04/17 08:42 BP 146/73 08/04/17 10:25 Pulse Ox 98 08/04/17 08:42 - Labs Result Diagrams: 08/03/17 05:50 08/03/17 05:50 Assessment & Plan - Assessment and Plan (Free Text) Assessment: Patient was personally seen and examined by me in rounds with residents. Available labs and diagnostic data reviewed. Case, Patient's condition and management plan discussed with residents in rounds. Agree with resident's progress note. Plan: As ordered. Plan: Patient was personally seen and examined by me in rounds with residents. Available labs and diagnostic data reviewed. Case, Patient's condition and management plan discussed with residents in rounds. Agree with resident's progress note. Plan: As ordered. - Date & Time Date: 08/03/17 Time: 07:00
[2017-08-01 08:09] LABS: ALB/GLOB RATIO 0.9 (1.0-2.1); ALBUMIN 3.2 g/dL (3.5-5.0); ALT/SGPT 28 U/L (9-52); AST/SGOT 27 U/L (14-36); BLOOD UREA NITROGEN 11 mg/dl (7-17); CALCIUM 8.7 mg/dL (8.4-10.2); GFR AFRICAN-AMERICAN > 60; GFR NON-AFRICAN AMERICAN > 60
[2017-08-01] MEDS: Digoxin 250 mcg (0.25 mg) Tab PO SCH ×2 (09:15→10:31)
[2017-08-01 12:32] LABS: BASO % 0.3 % (0.0-2.0); EOS # 0.1 K/uL (0.0-0.7); EOS % 0.7 % (0.0-4.0); HEMOGLOBIN 9.7 g/dL (12.0-16.0); LYMPH # 0.8 K/uL (1.0-4.3); LYMPH % 8.8 % (20.0-40.0); MEAN CELL VOLUME 87.1 fl (81.0-99.0); MEAN CORPUSCULAR HEMOGLOBIN 28.2 pg (27.0-31.0); MEAN CORPUSCULAR HGB CONC 32.4 g/dL (33.0-37.0); MEAN PLATELET VOLUME 7.8 fl (7.2-11.7); MONO # 0.5 K/uL (0.0-0.8); MONO % 5.9 % (0.0-10.0); NEUT # 7.6 K/uL (1.8-7.0); NEUT % 84.3 % (50.0-75.0); RBC 3.43 Mil/uL (3.80-5.20); RED CELL DISTRIBUTION WIDTH 17.5 % (11.5-14.5)
[2017-08-01] MEDS ORDERED: Potassium Chloride 20 mEq/15 ml LIQ UD PO ONE (17:00)
--- NOTE | 2017-08-01 21:32 | CP.PCM.PN ---
<Corrina Boykin - Last Filed: 08/01/17 21:32> Objective - Vital Signs/Intake and Output Vital Signs (last 24 hours): Temp Pulse Resp BP Pulse Ox 99.6 F 74 20 112/69 97 08/01/17 16:38 08/01/17 16:38 08/01/17 16:38 08/01/17 16:38 08/01/17 16:38 - Medications Medications: Current Medications Digoxin (Lanoxin) 0.25 mg PO DAILY [facility] Last Admin: 08/01/17 10:31 Dose: 0.25 mg Famotidine (Pepcid) 20 mg IVP Q12 [facility] Last Admin: 08/01/17 21:09 Dose: 20 mg Furosemide (Lasix) 20 mg PO DAILY [facility] Last Admin: 08/01/17 10:29 Dose: 20 mg Sodium Chloride (Sodium Chloride 0.9%) 1,000 mls @ 75 mls/hr IV .[id number] [facility] Stop: 08/01/17 23:26 Last Admin: 08/01/17 00:10 Dose: 75 mls/hr Ondansetron HCl (Zofran Inj) 4 mg IVP Q6 PRN PRN Reason: Nausea/Vomiting Last Admin: 08/01/17 18:00 Dose: 4 mg - Labs Labs: 08/01/17 06:30 08/01/17 06:30 <Migue Wells - Last Filed: 08/24/17 13:49> Subjective - Date & Time of Evaluation Date of Evaluation: 08/01/17 Time of Evaluation: 07:00 Objective - Vital Signs/Intake and Output Vital Signs (last 24 hours): Temp Pulse Resp BP Pulse Ox 98.9 F 68 18 146/73 98 08/04/17 08:42 08/04/17 08:42 08/04/17 08:42 08/04/17 10:25 08/04/17 08:42 - Labs Labs: 08/03/17 05:50 08/03/17 05:50 PT 14.4 Seconds (9.8-13.1) H 08/02/17 05:20 INR 1.3 (0.9-1.2) H 08/02/17 05:20 APTT 24.8 Seconds (25.6-37.1) L 08/02/17 05:20
[2017-08-02 06:10] LABS: BASO % 0.4 % (0.0-2.0); EOS # 0.1 K/uL (0.0-0.7); EOS % 1.5 % (0.0-4.0); HEMOGLOBIN 9.6 g/dL (12.0-16.0); LYMPH % 17.8 % (20.0-40.0); MEAN CORPUSCULAR HEMOGLOBIN 28.2 pg (27.0-31.0); MEAN CORPUSCULAR HGB CONC 32.8 g/dL (33.0-37.0); MEAN PLATELET VOLUME 7.3 fl (7.2-11.7); MONO # 0.4 K/uL (0.0-0.8); MONO % 8.1 % (0.0-10.0); NEUT % 72.2 % (50.0-75.0); RBC 3.41 Mil/uL (3.80-5.20); WHITE BLOOD COUNT 5.5 K/uL (4.8-10.8)
[2017-08-02 06:28] LABS: ALT/SGPT 29 U/L (9-52); AST/SGOT 22 U/L (14-36); BLOOD UREA NITROGEN 9 mg/dl (7-17); CALCIUM 8.8 mg/dL (8.4-10.2); GFR AFRICAN-AMERICAN > 60; GFR NON-AFRICAN AMERICAN > 60
[2017-08-02 06:31] LABS: ALB/GLOB RATIO 0.9 (1.0-2.1)
[2017-08-02 06:42] LABS: INR 1.3 (0.9-1.2); PARTIAL THROMBOPLASTIN TIME 24.8 Seconds (25.6-37.1); PROTHROMBIN TIME 14.4 Seconds (9.8-13.1)
[2017-08-02 08:51] LABS: IRON 40 ug/dL (37-170)
[2017-08-02 09:03] LABS: % IRON SATURATION 15 % (20-55); TOTAL IRON BINDING CAPACITY 271 ug/dL (250-450)
[2017-08-02] MEDS ORDERED: Barium Sulfate Susp 2.1% w/v, 2.0% w/w 450 mL Bottle PO ONE ×4 (09:46→10:15)
[2017-08-02] MEDS: Digoxin 250 mcg (0.25 mg) Tab PO SCH (11:07)
[2017-08-02] MEDS: Enoxaparin 40 mg Syringe SC SCH (13:28)
--- NOTE | 2017-08-02 16:08 | CT ---
PROCEDURE: CT Abdomen and Pelvis with contrast HISTORY: abd pain COMPARISON: Abdomen CT without contrast 07/16/2017. TECHNIQUE: Helical CT of the abdomen and pelvis was performed following oral contrast administration. Intravenous contrast was not administered as per referring physician request. Contrast dose: None Radiation dose: Total exam DLP = 820.82 mGy-cm. This CT exam was performed using one or more of the following dose reduction techniques: Automated exposure control, adjustment of the mA and/or kV according to patient size, and/or use of iterative reconstruction technique. FINDINGS: LOWER THORAX: Trace left pleural effusion developing with minimal compression atelectasis throughout the left lower lobe. Cardiomegaly appears stable with scoliotic thoracolumbar spinal deformity again identified. LIVER: Unremarkable. No gross lesion or ductal dilatation. GALLBLADDER AND BILE DUCTS: Prior cholecystostomy again noted. PANCREAS: Unremarkable. No gross lesion or ductal dilatation. SPLEEN: Unremarkable. ADRENALS: Unremarkable. No mass. KIDNEYS AND URETERS: Bilateral renal cysts are again identified minimi complicated at the dominant right renal cyst once again with dense calcifications again seen at the left upper pole kidney potentially related to a cyst. Additional mural calcifications seen at the a lower pole left renal cyst. No obstructive uropathy in the interval. VASCULATURE: Unremarkable. No aortic aneurysm. 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 Prior partial left hemicolectomy again noted. APPENDIX: Not identified. No CT evidence to suggest appendicitis. PERITONEUM: Unremarkable. No free fluid. No free air. LYMPH NODES: Unremarkable. No enlarged lymph nodes. BLADDER: Mildly distended but thin walled. No nodular changes seen in the interval related to the wall. No radiodense urolithiasis in the lumen. REPRODUCTIVE: Unremarkable. BONES: Marked osteopenia again seen diffusely with multiple chronic compression fractures seen chronic at the thoracolumbar spine including vertebroplasty related hyperdensity including T8, T10 and L1 vertebral bodies. OTHER FINDINGS: None. IMPRESSION: No definite acute abdominal or pelvic findings as discussed above. Prior cholecystectomy again evident as well as multifocal complex bilateral renal cysts without interval obstructive uropathy bilaterally. Prior segmental left colonic resection again noted with left lower quadrant colostomy.
[2017-08-02] MEDS ORDERED: Alum-Mag Hydrox-Simethicone Susp (30 mL) PO ONE (18:50)
[2017-08-02] MEDS ORDERED: Alum-Mag Hydrox-Simethicone Susp (30 mL) PO PRN (19:49)
--- NOTE | 2017-08-02 21:29 | CON ---
DATE: REFERRING PHYSICIAN: Dr. Migue Wells. REASON FOR CONSULTATION: Nausea, vomiting, and abdominal pain. HISTORY OF PRESENT ILLNESS: This is an 89-year-old female with history of productive, but progressive cough and colostomy, comes in for some reflux. Patient actually is tolerating diet. Refluxes at home, has had them for many, many months. Has no weight loss of clinical significance. No pain today in the hospital. Currently, lying in the bed comfortably, in no apparent distress. PAST MEDICAL HISTORY: As above. PAST SURGICAL HISTORY: As above. MEDICATIONS: Have been reviewed. REVIEW OF SYSTEMS: All other systems have been reviewed and are negative apart from the HPI. PHYSICAL EXAMINATION: VITAL SIGNS: During the hospital are grossly unremarkable. GENERAL: This is a pleasant elderly, in no apparent distress. HEENT: Head: Normocephalic and atraumatic. Eyes: Pupils are equally reactive to light bilaterally. No conjunctival pallor or icterus. NECK: Supple. Normal range of motion. No lymphadenopathy appreciated. LUNGS: Coarse breath sounds bilaterally. HEART: S1, S2, regular rhythm. No murmurs appreciated. ABDOMEN: Soft, nontender. Bowel sounds present. No rebound. No guarding. RECTAL: Deferred. EXTREMITIES: Pulses felt bilaterally. SKIN: Warm, dry, and intact. NEUROLOGIC: A and O x3. LABORATORY DATA: Labs and radiology have been reviewed. Labs include WBC of 9.9, hemoglobin of 9.7, hematocrit of 29.9, platelet count is 260. INR 1.3. ASSESSMENT AND PLAN: This is an 89-year-old female with abdominal pain, nausea, vomiting. From GI standpoint, advance diet as tolerated, get a CAT scan for now. can be done as an outpatient as needed. Proton pump inhibitor twice a day. Thank you for the consult. Jose Armando Brown MD/ PhD cc: Migue Wells MD
--- NOTE | 2017-08-02 22:25 | CP.PCM.PN ---
Objective - Vital Signs/Intake and Output Vital Signs (last 24 hours): Temp Pulse Resp BP Pulse Ox 98.9 F 71 18 120/73 98 08/02/17 16:26 08/02/17 16:26 08/02/17 16:26 08/02/17 16:26 08/02/17 16:26 - Medications Medications: Current Medications Al Hydrox/Mg Hydrox/Simethicone (Maalox Plus 30 Ml) 30 ml PO Q6 PRN PRN Reason: Indigestion / Heartburn Last Admin: 08/02/17 21:05 Dose: 30 ml Digoxin (Lanoxin) 0.25 mg PO DAILY [facility] Last Admin: 08/02/17 11:07 Dose: 0.25 mg Enoxaparin Sodium (Lovenox) 40 mg SC DAILY [facility] PRN Reason: Protocol Last Admin: 08/02/17 13:28 Dose: 40 mg Famotidine (Pepcid) 20 mg IVP Q12 [facility] Last Admin: 08/02/17 21:04 Dose: 20 mg Furosemide (Lasix) 20 mg PO DAILY [facility] Last Admin: 08/02/17 11:06 Dose: 20 mg Ondansetron HCl (Zofran Inj) 4 mg IVP Q6 PRN PRN Reason: Nausea/Vomiting Last Admin: 08/02/17 15:32 Dose: 4 mg Tramadol HCl (Ultram) 50 mg PO Q6 PRN PRN Reason: Pain, moderate (4-7) - Labs Labs: 08/02/17 05:20 08/02/17 05:20 PT 14.4 Seconds (9.8-13.1) H 08/02/17 05:20 INR 1.3 (0.9-1.2) H 08/02/17 05:20 APTT 24.8 Seconds (25.6-37.1) L 08/02/17 05:20
[2017-08-03 06:14] LABS: HEMOGLOBIN 9.9 g/dL (12.0-16.0); MEAN CELL VOLUME 86.6 fl (81.0-99.0); MEAN CORPUSCULAR HEMOGLOBIN 28.6 pg (27.0-31.0); RBC 3.45 Mil/uL (3.80-5.20); WHITE BLOOD COUNT 5.7 K/uL (4.8-10.8)
[2017-08-03 06:17] LABS: BLOOD UREA NITROGEN 10 mg/dl (7-17); CALCIUM 8.9 mg/dL (8.4-10.2); GFR AFRICAN-AMERICAN > 60; GFR NON-AFRICAN AMERICAN 59; LIPASE 146 U/L (23-300)
[2017-08-03] MEDS: Enoxaparin 40 mg Syringe SC SCH (09:23)
[2017-08-03] MEDS: Digoxin 250 mcg (0.25 mg) Tab PO SCH (09:24)
--- NOTE | 2017-08-03 14:23 | PQF GENQUE ---
Dr. Wells, Please specify the type and acuity of heart failure in your progress notes: versus hx. of CHF and not a chronic condition 1. TYPE: Combined systolic and diastolic Heart failure with reduced ejection fraction and diastolic dysfunction Diastolic HFpEF Systolic HFrEF Left heart failure Right heart failure Right heart failure due to left heart failure High Output failure End stage heart failure Other (please specify) Clinically unable to determine Unknown 2. ACUITY: Acute Chronic Acute on chronic Other (please specify) Clinically unable to determine Unknown H and P; hx. of CHF: digoxin 0.25 MG OD, lasix 20 mg daily This form is a permanent part of the medical record Clarification of your documentation is requested to better reflect the severity of illness and intensity of treatment of your patient. Indicators present [] Specify: [] [] Specify: [] [] Specify: [] [] Specify: [] Location in the medical record that reflects the above clinical findings: [] Treatment Provided: [] PHYSICIAN'S RESPONSE Based on your medical judgment of the clinical indicators outlined above please clarify the following: [] Practitioner response [] If unable to determine, please check the box, sign and date. Present On Admission (POA) Indicator: [] Present at the time of admission [] Not present at the time of admission [] Clinically Undetermined In responding to this query, please exercise your independent professional judgment. The fact that a question is asked does not imply that any particular answer is desired or expected. Thank you for your clarification on this documentation. If you have any questions please call. * Thank you, Alfreda King RN ext. #[phone] MTDD
--- NOTE | 2017-08-03 14:41 | PQF GENQUE ---
Dr. Wells, 1. In agreement with BMI:18.6 as listed in the EMR? if yes please add the BMI to your progress note 2. And if in agreement is there an associated dx. to go along with the BMI: i.e.underweight or small frame etc. OR: Disagree OR; Other explanation of clinical findings EMR: 5ft 3in : BMI:18.6 H and P:in draft: vomiting and unable to tolerate PO with history significant for Diverticulitis s/p colon resection and colostomy GI consult in draft: :history of productive, but progressive cough and colostomy, comes in for some reflux. Patient actually is tolerating diet. Refluxes at home, has had them for many, many months. Has no weight loss of clinical significance. This form is a permanent part of the medical record Clarification of your documentation is requested to better reflect the severity of illness and intensity of treatment of your patient. Indicators present [] Specify: [] [] Specify: [] [] Specify: [] [] Specify: [] Location in the medical record that reflects the above clinical findings: [] Treatment Provided: [] PHYSICIAN'S RESPONSE Based on your medical judgment of the clinical indicators outlined above please clarify the following: [] Practitioner response [] If unable to determine, please check the box, sign and date. Present On Admission (POA) Indicator: [] Present at the time of admission [] Not present at the time of admission [] Clinically Undetermined In responding to this query, please exercise your independent professional judgment. The fact that a question is asked does not imply that any particular answer is desired or expected. Thank you for your clarification on this documentation. If you have any questions please call. * Thank you, Alfreda King RN ext. #[phone] MTDD
--- NOTE | 2017-08-03 21:07 | CP.PCM.PN ---
<LucretiaCorrina Y - Last Filed: 08/03/17 21:07> Objective - Vital Signs/Intake and Output Vital Signs (last 24 hours): Temp Pulse Resp BP Pulse Ox 99.3 F 73 20 131/77 98 08/03/17 16:40 08/03/17 16:40 08/03/17 16:40 08/03/17 16:40 08/03/17 16:40 - Medications Medications: Current Medications Al Hydrox/Mg Hydrox/Simethicone (Maalox Plus 30 Ml) 30 ml PO Q6 PRN PRN Reason: Indigestion / Heartburn Last Admin: 08/02/17 21:05 Dose: 30 ml Digoxin (Lanoxin) 0.25 mg PO DAILY [facility] Last Admin: 08/03/17 09:24 Dose: 0.25 mg Enoxaparin Sodium (Lovenox) 40 mg SC DAILY [facility] PRN Reason: Protocol Last Admin: 08/03/17 09:23 Dose: 40 mg Famotidine (Pepcid) 20 mg IVP Q12 [facility] Last Admin: 08/03/17 09:23 Dose: 20 mg Furosemide (Lasix) 20 mg PO DAILY [facility] Last Admin: 08/03/17 09:24 Dose: 20 mg Ondansetron HCl (Zofran Inj) 4 mg IVP Q6 PRN PRN Reason: Nausea/Vomiting Last Admin: 08/02/17 15:32 Dose: 4 mg Tramadol HCl (Ultram) 50 mg PO Q6 PRN PRN Reason: Pain, moderate (4-7) Last Admin: 08/03/17 12:37 Dose: 50 mg - Labs Labs: 08/03/17 05:50 08/03/17 05:50 PT 14.4 Seconds (9.8-13.1) H 08/02/17 05:20 INR 1.3 (0.9-1.2) H 08/02/17 05:20 APTT 24.8 Seconds (25.6-37.1) L 08/02/17 05:20 Assessment and Plan (1) Abdominal pain Status: Chronic <Migue Wells - Last Filed: 08/24/17 13:50> Subjective - Date & Time of Evaluation Date of Evaluation: 08/31/17 Time of Evaluation: 07:00 Objective - Vital Signs/Intake and Output Vital Signs (last 24 hours): Temp Pulse Resp BP Pulse Ox 98.9 F 68 18 146/73 97 08/04/17 08:42 08/04/17 08:42 08/04/17 08:42 08/04/17 10:25 08/16/17 13:58 - Labs Labs: 08/03/17 05:50 08/03/17 05:50 PT 14.4 Seconds (9.8-13.1) H 08/02/17 05:20 INR 1.3 (0.9-1.2) H 08/02/17 05:20 APTT 24.8 Seconds (25.6-37.1) L 08/02/17 05:20 Assessment and Plan - Assessment and Plan (Free Text) Assessment: Patient was personally seen and examined by me in rounds with residents. Available labs and diagnostic data reviewed. Case, Patient's condition and management plan discussed with residents in rounds. Agree with resident's documentation. Plan: As ordered. Migue Wells MD
--- NOTE | 2017-08-03 21:35 | CP.PCM.PN ---
Subjective - Date & Time of Evaluation Date of Evaluation: 08/03/17 Time of Evaluation: 09:05 - Subjective Subjective: doing well Objective - Vital Signs/Intake and Output Vital Signs (last 24 hours): Temp Pulse Resp BP Pulse Ox 99.3 F 73 20 131/77 98 08/03/17 16:40 08/03/17 16:40 08/03/17 16:40 08/03/17 16:40 08/03/17 16:40 - Medications Medications: Current Medications Al Hydrox/Mg Hydrox/Simethicone (Maalox Plus 30 Ml) 30 ml PO Q6 PRN PRN Reason: Indigestion / Heartburn Last Admin: 08/02/17 21:05 Dose: 30 ml Digoxin (Lanoxin) 0.25 mg PO DAILY [facility] Last Admin: 08/03/17 09:24 Dose: 0.25 mg Enoxaparin Sodium (Lovenox) 40 mg SC DAILY [facility] PRN Reason: Protocol Last Admin: 08/03/17 09:23 Dose: 40 mg Famotidine (Pepcid) 20 mg IVP Q12 [facility] Last Admin: 08/03/17 21:22 Dose: 20 mg Furosemide (Lasix) 20 mg PO DAILY [facility] Last Admin: 08/03/17 09:24 Dose: 20 mg Ondansetron HCl (Zofran Inj) 4 mg IVP Q6 PRN PRN Reason: Nausea/Vomiting Last Admin: 08/02/17 15:32 Dose: 4 mg Tramadol HCl (Ultram) 50 mg PO Q6 PRN PRN Reason: Pain, moderate (4-7) Last Admin: 08/03/17 12:37 Dose: 50 mg - Labs Labs: 08/03/17 05:50 08/03/17 05:50 PT 14.4 Seconds (9.8-13.1) H 08/02/17 05:20 INR 1.3 (0.9-1.2) H 08/02/17 05:20 APTT 24.8 Seconds (25.6-37.1) L 08/02/17 05:20 - Head Exam Head Exam: NORMAL INSPECTION - Respiratory Exam Respiratory Exam: NORMAL BREATHING PATTERN - Cardiovascular Exam Cardiovascular Exam: REGULAR RHYTHM - GI/Abdominal Exam GI & Abdominal Exam: Soft, Normal Bowel Sounds Assessment and Plan - Assessment and Plan (Free Text) Assessment: 89 yo female with gerd tolerating diet, if tolerates can advance and dc home with outpatient follow up
--- NOTE | 2017-08-04 08:16 | CARD ---
APPROVED REPORT EKG Measurement Heart [id number] <Conclusion> Normal sinus rhythm baseline artefact present-recommend repeat
[2017-08-04] MEDS: Enoxaparin 40 mg Syringe SC SCH (08:26)
[2017-08-04 08:42] VITALS: BP 146/73; PULSE 68; RESP 18; TEMP 98.9
[2017-08-04] MEDS: Digoxin 250 mcg (0.25 mg) Tab PO SCH (10:25)
[2017-08-04 10:27] VITALS: PULSE 68
--- NOTE | 2017-08-04 14:08 | CP.PCM.PCO ---
Assessment/Plan - Assessment/Plan Assessment (Free Text): Pt stable, had large BM. Abdominal pain and nausea better. Denies cp, sob, f/c, Pt to be d/c'd home today. Pt does not want to go to TCU, states she has 5 homemakers and has 24 hour care at home. Pt tolerating regular food. Seen and cleared for d/c home by Dr. Brown. Discussed with Corrina Boykin NP for Dr. Wells, pt to f/u outpatient in office. Pt to resume same home meds.
--- NOTE | 2017-08-04 18:12 | CP.PCM.DIS ---
<Corrina Boykin - Last Filed: 08/10/17 22:11> Provider - Provider Date of Admission: 07/31/17 17:16 Attending physician: Migue Wells MD Diagnosis - Discharge Diagnosis (1) Abdominal pain Status: Chronic Priority: Medium (2) Gastritis Status: Acute Priority: Medium Hospital Course - Lab Results Lab Results: Most Recent Lab Values WBC 5.7 K/uL (4.8-10.8) 08/03/17 05:50 RBC 3.45 Mil/uL (3.80-5.20) L 08/03/17 05:50 Hgb 9.9 g/dL (12.0-16.0) L 08/03/17 05:50 Hct 29.9 % (34.0-47.0) L 08/03/17 05:50 MCV 86.6 fl (81.0-99.0) 08/03/17 05:50 MCH 28.6 pg (27.0-31.0) 08/03/17 05:50 MCHC 33.0 g/dL (33.0-37.0) 08/03/17 05:50 RDW 17.0 % (11.5-14.5) H 08/03/17 05:50 Plt Count 254 K/uL (130-400) 08/03/17 05:50 MPV 7.3 fl (7.2-11.7) 08/02/17 05:20 Neut % (Auto) 72.2 % (50.0-75.0) 08/02/17 05:20 Lymph % (Auto) 17.8 % (20.0-40.0) L 08/02/17 05:20 Mccormick % (Auto) 8.1 % (0.0-10.0) 08/02/17 05:20 Eos % (Auto) 1.5 % (0.0-4.0) 08/02/17 05:20 Baso % (Auto) 0.4 % (0.0-2.0) 08/02/17 05:20 Neut # 4.0 K/uL (1.8-7.0) 08/02/17 05:20 Lymph # 1.0 K/uL (1.0-4.3) 08/02/17 05:20 Mccormick # 0.4 K/uL (0.0-0.8) 08/02/17 05:20 Eos # 0.1 K/uL (0.0-0.7) 08/02/17 05:20 Baso # 0.0 K/uL (0.0-0.2) 08/02/17 05:20 Neutrophils % (Manual) 91 % (42-75) H 07/31/17 13:00 Band Neutrophils % 2 % (0-2) 07/31/17 13:00 Lymphocytes % (Manual) 7 % (20-50) L 07/31/17 13:00 Monocytes % (Manual) TEST NOT PERFORMED 07/31/17 13:00 Toxic Granulation Present 07/31/17 13:00 Platelet Estimate Normal (NORMAL) 07/31/17 13:00 Large Platelets Present 07/31/17 13:00 Hypochromasia (manual) Slight 07/31/17 13:00 Poikilocytosis (manual Slight 07/31/17 13:00 Anisocytosis (manual) Slight 07/31/17 13:00 Tear Drop Cells Slight 07/31/17 13:00 Ovalocytes Slight 07/31/17 13:00 Stomatocytes Slight 07/31/17 13:00 PT 14.4 Seconds (9.8-13.1) H 08/02/17 05:20 INR 1.3 (0.9-1.2) H 08/02/17 05:20 APTT 24.8 Seconds (25.6-37.1) L 08/02/17 05:20 Sodium 140 mmol/l (132-148) 08/03/17 05:50 Potassium 4.0 MMOL/L (3.6-5.0) 08/03/17 05:50 Chloride 104 mmol/L (98-107) 08/03/17 05:50 Carbon Dioxide 31 mmol/L (22-30) H 08/03/17 05:50 Anion Gap 9 (10-20) L 08/03/17 05:50 BUN 10 mg/dl (7-17) 08/03/17 05:50 Creatinine 0.9 mg/dl (0.7-1.2) 08/03/17 05:50 Est GFR ( Amer) > 60 08/03/17 05:50 Est GFR (Non-Af Amer) 59 08/03/17 05:50 POC Glucose (mg/dL) 132 mg/dL (65-110) H 07/31/17 12:40 Random Glucose 94 mg/dL (65-105) 08/03/17 05:50 Calcium 8.9 mg/dL (8.4-10.2) 08/03/17 05:50 Iron 40 ug/dL (37-170) 08/02/17 08:21 TIBC 271 ug/dL (250-450) 08/02/17 08:21 % Saturation 15 % (20-55) L 08/02/17 08:21 Total Bilirubin 0.5 mg/dl (0.2-1.3) 08/02/17 05:20 AST 22 U/L (14-36) 08/02/17 05:20 ALT 29 U/L (9-52) 08/02/17 05:20 Alkaline Phosphatase 55 U/L (38-126) 08/02/17 05:20 Troponin I 0.0150 ng/mL (0.00-0.120) 07/31/17 13:00 Total Protein 6.4 G/DL (6.3-8.2) 08/02/17 05:20 Albumin 3.0 g/dL (3.5-5.0) L 08/02/17 05:20 Globulin 3.4 gm/dL (2.2-3.9) 08/02/17 05:20 Albumin/Globulin Ratio 0.9 (1.0-2.1) L 08/02/17 05:20 Lipase 146 U/L (23-300) 08/03/17 05:50 Stool Occult Blood Negative (NEGATIVE) 08/02/17 07:37 Digoxin < 0.4 ng/mL (0.8-2.0) L 07/31/17 13:00 - Hospital Course Hospital Course: pt came in with abdominal pain, n/v, abdominal CT was negative, pt had been eating since admission, no noted Vomiting or other issue, her VS been stable, no fever, no diarrhea, she was observe for two days, labs were stable, she had no further pain. Discharge Exam - Head Exam Head Exam: NORMAL INSPECTION - Eye Exam Eye Exam: Normal appearance Pupil Exam: NORMAL ACCOMODATION - ENT Exam ENT Exam: Mucous Membranes Moist - Respiratory Exam Respiratory Exam: Clear to PA & Lateral - Cardiovascular Exam Cardiovascular Exam: REGULAR RHYTHM - GI/Abdominal Exam GI & Abdominal Exam: Normal Bowel Sounds, Soft, Unremarkable. absent: Bruit, Diminished Bowel Sounds, Distended, Firm, Guarding, Hernia, Hyperactive Bowel Sounds, Hypoactive Bowel Sounds, Mass, Organomegaly, Pulsatile Mass, Rebound, Rigid, Tenderness - Extremities Exam Extremities exam: full ROM, normal capillary refill, normal inspection, pedal pulses present - Neurological Exam Neurological exam: Alert, CN II-XII Intact, Oriented x3 - Psychiatric Exam Psychiatric exam: Normal Mood - Skin Skin Exam: Intact, Normal Color, Warm Discharge Plan - Follow Up Plan Condition: STABLE Disposition: HOME/ ROUTINE Instructions: Ondansetron (By mouth), Colostomy Care (DC), Acute Abdominal Pain (DC) Referrals: Migue Wells MD [Staff Provider] - Jose Armando Brown MD, PhD [Staff Provider] - <Migue Wells - Last Filed: 08/24/17 14:01> Provider - Provider Date of Admission: 07/31/17 17:16 Attending physician: Migue Wells MD Hospital Course - Lab Results Lab Results: Most Recent Lab Values WBC 5.7 K/uL (4.8-10.8) 08/03/17 05:50 RBC 3.45 Mil/uL (3.80-5.20) L 08/03/17 05:50 Hgb 9.9 g/dL (12.0-16.0) L 08/03/17 05:50 Hct 29.9 % (34.0-47.0) L 08/03/17 05:50 MCV 86.6 fl (81.0-99.0) 08/03/17 05:50 MCH 28.6 pg (27.0-31.0) 08/03/17 05:50 MCHC 33.0 g/dL (33.0-37.0) 08/03/17 05:50 RDW 17.0 % (11.5-14.5) H 08/03/17 05:50 Plt Count 254 K/uL (130-400) 08/03/17 05:50 MPV 7.3 fl (7.2-11.7) 08/02/17 05:20 Neut % (Auto) 72.2 % (50.0-75.0) 08/02/17 05:20 Lymph % (Auto) 17.8 % (20.0-40.0) L 08/02/17 05:20 Mccormick % (Auto) 8.1 % (0.0-10.0) 08/02/17 05:20 Eos % (Auto) 1.5 % (0.0-4.0) 08/02/17 05:20 Baso % (Auto) 0.4 % (0.0-2.0) 08/02/17 05:20 Neut # 4.0 K/uL (1.8-7.0) 08/02/17 05:20 Lymph # 1.0 K/uL (1.0-4.3) 08/02/17 05:20 Mccormick # 0.4 K/uL (0.0-0.8) 08/02/17 05:20 Eos # 0.1 K/uL (0.0-0.7) 08/02/17 05:20 Baso # 0.0 K/uL (0.0-0.2) 08/02/17 05:20 Neutrophils % (Manual) 91 % (42-75) H 07/31/17 13:00 Band Neutrophils % 2 % (0-2) 07/31/17 13:00 Lymphocytes % (Manual) 7 % (20-50) L 07/31/17 13:00 Monocytes % (Manual) TEST NOT PERFORMED 07/31/17 13:00 Toxic Granulation Present 07/31/17 13:00 Platelet Estimate Normal (NORMAL) 07/31/17 13:00 Large Platelets Present 07/31/17 13:00 Hypochromasia (manual) Slight 07/31/17 13:00 Poikilocytosis (manual Slight 07/31/17 13:00 Anisocytosis (manual) Slight 07/31/17 13:00 Tear Drop Cells Slight 07/31/17 13:00 Ovalocytes Slight 07/31/17 13:00 Stomatocytes Slight 07/31/17 13:00 PT 14.4 Seconds (9.8-13.1) H 08/02/17 05:20 INR 1.3 (0.9-1.2) H 08/02/17 05:20 APTT 24.8 Seconds (25.6-37.1) L 08/02/17 05:20 Sodium 140 mmol/l (132-148) 08/03/17 05:50 Potassium 4.0 MMOL/L (3.6-5.0) 08/03/17 05:50 Chloride 104 mmol/L (98-107) 08/03/17 05:50 Carbon Dioxide 31 mmol/L (22-30) H 08/03/17 05:50 Anion Gap 9 (10-20) L 08/03/17 05:50 BUN 10 mg/dl (7-17) 08/03/17 05:50 Creatinine 0.9 mg/dl (0.7-1.2) 08/03/17 05:50 Est GFR ( Amer) > 60 08/03/17 05:50 Est GFR (Non-Af Amer) 59 08/03/17 05:50 POC Glucose (mg/dL) 132 mg/dL (65-110) H 07/31/17 12:40 Random Glucose 94 mg/dL (65-105) 08/03/17 05:50 Calcium 8.9 mg/dL (8.4-10.2) 08/03/17 05:50 Iron 40 ug/dL (37-170) 08/02/17 08:21 TIBC 271 ug/dL (250-450) 08/02/17 08:21 % Saturation 15 % (20-55) L 08/02/17 08:21 Total Bilirubin 0.5 mg/dl (0.2-1.3) 08/02/17 05:20 AST 22 U/L (14-36) 08/02/17 05:20 ALT 29 U/L (9-52) 08/02/17 05:20 Alkaline Phosphatase 55 U/L (38-126) 08/02/17 05:20 Troponin I 0.0150 ng/mL (0.00-0.120) 07/31/17 13:00 Total Protein 6.4 G/DL (6.3-8.2) 08/02/17 05:20 Albumin 3.0 g/dL (3.5-5.0) L 08/02/17 05:20 Globulin 3.4 gm/dL (2.2-3.9) 08/02/17 05:20 Albumin/Globulin Ratio 0.9 (1.0-2.1) L 08/02/17 05:20 Lipase 146 U/L (23-300) 08/03/17 05:50 Stool Occult Blood Negative (NEGATIVE) 08/02/17 07:37 Digoxin < 0.4 ng/mL (0.8-2.0) L 07/31/17 13:00 - Date & Time of H&P Date of H&P: 08/31/17 Time of H&P: 07:00
[2017-08-16 13:56] VITALS: O2SAT 97
--- NOTE | 2017-08-24 13:14 | PQF GENQUE ---
Pt was admitted with abdominal pain. After study if known what is the cause or source? Thank you This form is a permanent part of the medical record Clarification of your documentation is requested to better reflect the severity of illness and intensity of treatment of your patient. Indicators present [] Specify: [] [] Specify: [] [] Specify: [] [] Specify: [] Location in the medical record that reflects the above clinical findings: [] Treatment Provided: [] PHYSICIAN'S RESPONSE Based on your medical judgment of the clinical indicators outlined above please clarify the following: [] Practitioner response [] If unable to determine, please check the box, sign and date. Present On Admission (POA) Indicator: [] Present at the time of admission [] Not present at the time of admission [] Clinically Undetermined In responding to this query, please exercise your independent professional judgment. The fact that a question is asked does not imply that any particular answer is desired or expected. Thank you for your clarification on this documentation. If you have any questions please call:[ ] * Thank you, [ ]Adriana NAVARRETE Coder FEROZ
== END 2017-08-04 15:10 | disposition home or self-care (01) | DRG 392 ==
LOC: H.ER 12:19 → H.ERHOLD 17:16 → H.MEDSURG1 18:12
PROVIDERS: ADMIT Internal Medicine; ATTEND Internal Medicine
DX: K29.70 Gastritis, unspecified, without bleeding (principal); D64.9 Anemia, unspecified; K21.9 Gastro-esophageal reflux disease without esophagitis; G89.29 Other chronic pain; I10 Essential (primary) hypertension; Z87.891 Personal history of nicotine dependence; Z93.3 Colostomy status; Z88.6 Allergy status to analgesic agent; Z91.041 Radiographic dye allergy status; Z91.040 Latex allergy status; Z91.013 Allergy to seafood; Z91.018 Allergy to other foods; M81.0 Age-related osteoporosis without current pathological fracture; K44.9 Diaphragmatic hernia without obstruction or gangrene; I25.10 Atherosclerotic heart disease of native coronary artery without angina pectoris; M19.90 Unspecified osteoarthritis, unspecified site

== ENCOUNTER 2017-10-01 13:32 | Inpatient (IN) | payer MEDICARE, OTHER ==
[2017-10-01 13:32] VITALS: BMI 23.2
--- NOTE | 2017-10-01 14:20 | ED PDOC ---
HPI: Abdomen Time Seen by Provider: 10/01/17 13:56 Chief Complaint (Nursing): Abdominal Pain Chief Complaint (Provider): Abdominal Pain History Per: Patient History/Exam Limitations: no limitations Onset/Duration Of Symptoms: Days (x3) Current Symptoms Are (Timing): Still Present Additional Complaint(s): 89 year old female with medical history of diverticulitis, presents to the emergency department with a complaint of constipation, status post colon resection surgery, ongoing for 3 days. Patient reported small amount of stool and gas noted in colostomy bag. She also stated that she was seen by PMD on , in which, a manual extraction was attempted without success. Patient denied any fever, chills or vomiting. PMD: Migue Wells MD Past Medical History Reviewed: Historical Data, Nursing Documentation, Vital Signs Vital Signs: Last Vital Signs Temp 98.3 F 10/05/17 00:00 Pulse 81 10/05/17 00:00 Resp 19 10/05/17 00:00 BP 110/69 10/05/17 00:00 Pulse Ox 95 10/05/17 00:00 - Medical History PMH: Anemia, Arthritis, CAD, Cardia Arrhythmia, CHF, Diverticulitis, Gastritis, Hiatal Hernia, Osteoporosis Denies: HIV, Chronic Kidney Disease - Surgical History Surgical History: Appendectomy, Cholecystectomy - Family History Family History: States: Unknown Family Hx - Social History Current smoker - smoking cessation education provided: No Alcohol: None Drugs: Denies - Home Medications Home Medications: Ambulatory Orders Medication Instructions Recorded Acetaminophen [Tylenol 325mg tab] 500 mg PO Q6 PRN 07/31/17 Dicyclomine [Bentyl] 10 mg PO BID 07/31/17 Digoxin [Digitek] 0.25 mg PO DAILY 07/31/17 Docusate Sodium [Stool Softener] 1 cap PO TID 07/31/17 Furosemide [Lasix] 20 mg PO DAILY 07/31/17 Levocetirizine Dihydrochloride 1 cap PO PRN PRN 07/31/17 [Xyzal] Omeprazole Magnesium [Prilosec Otc] 40 mg PO DAILY 07/31/17 Ondansetron HCl [Zofran] 4 mg PO PRN PRN 07/31/17 traMADol [Ultram] 50 mg PO Q6 07/31/17 - Allergies Allergies/Adverse Reactions: Allergies Allergy/AdvReac Type Severity Reaction Status Date / Time apple Allergy SHORTNESS Verified 10/01/17 13:46 OF BREATH banana Allergy SHORTNESS Verified 10/01/17 13:46 OF BREATH FISH Allergy SHORTNESS Verified 10/01/17 13:46 OF BREATH iodine Allergy SHORTNESS Verified 10/01/17 13:46 OF BREATH latex Allergy RASH Verified 10/01/17 13:46 codeine AdvReac ANAPHYLAXIS Verified 10/01/17 13:46 lidocaine AdvReac ANAPHYLAXIS Verified 10/01/17 13:46 Review of Systems ROS Statement: Except As Marked, All Systems Reviewed And Found Negative Constitutional: Negative for: Fever, Chills Gastrointestinal: Positive for: Constipation. Negative for: Vomiting Physical Exam - Reviewed Nursing Documentation Reviewed: Yes Vital Signs Reviewed: Yes - Physical Exam Appears: Positive for: No Acute Distress Cardiovascular/Chest: Positive for: Regular Rate, Rhythm, Chest Non Tender Respiratory: Positive for: Normal Breath Sounds. Negative for: Decreased Breath Sounds, Wheezing, Respiratory Distress Gastrointestinal/Abdominal: Positive for: Soft, Tenderness (periumbilical mildly ). Negative for: Other (solid stools present in colostomy bag) Back: Positive for: Normal Inspection. Negative for: L CVA Tenderness, R CVA Tenderness Neurologic/Psych: Positive for: Alert, Oriented - Laboratory Results Result Diagrams: 10/04/17 05:30 10/04/17 05:30 - ECG O2 Sat by Pulse Oximetry: 99 (RA) Pulse Ox Interpretation: Normal Medical Decision Making Medical Decision Making: Initial Impression: Constipation Scribe Attestation: Documented by Corrina Newell, acting as a scribe for Jaspreet Harden MD. Provider Scribe Attestation: All medical record entries made by the Scribe were at my direction and personally dictated by me. I have reviewed the chart and agree that the record accurately reflects my personal performance of the history, physical exam, medical decision making, and the department course for this patient. I have also personally directed, reviewed, and agree with the discharge instructions and disposition. Disposition - Clinical Impression Clinical Impression: Colitis - Patient ED Disposition Is Patient to be Admitted: Transfer of Care - Disposition Disposition: Transfer of Care Disposition Time: 15:00 Condition: STABLE Patient Signed Over To: Hugo Girard
--- NOTE | 2017-10-01 15:29 | ED PDOC ---
- Laboratory Results Result Diagrams: 10/01/17 18:30 10/01/17 18:30 Interpretation Of Abn Labs: no acute - ECG O2 Sat by Pulse Oximetry: 99 (RA) Pulse Ox Interpretation: Normal - Progress ED Course And Treament: 1500: Took over care from Dr. Harden. Fu enema. Has colectomy and sent from surgery for enema. 1804: Stable. No stool despite enema. Will give pain meds due to abd pain. Spoke with Dr. Meyer surgery. Wants ct and surgery resident to see her. Will Ct. 2327: Stable. AAOx3. Pending ct. Contract obtained from Fran as pt. allergy to banana and iodine. Surgery resident aware and following case. Dr. Arguello to [place] on ct. Disposition - Clinical Impression Clinical Impression: Abdominal discomfort - POA Present On Arrival: None - Disposition Disposition: Transfer of Care Disposition Time: 23:29 Condition: STABLE Forms: [facility] (Macedonian) Patient Signed Over To: Samuel Arguello
[2017-10-01] MEDS ORDERED: Barium Sulfate Susp 2.1% w/v, 2.0% w/w 450 mL Bottle PO ONE ×3 (18:02→18:03)
[2017-10-01 19:26] LABS: BASO % 0.3 % (0.0-2.0); EOS # 0.4 K/uL (0.0-0.7); EOS % 5.6 % (0.0-4.0); HEMOGLOBIN 10.9 g/dL (12.0-16.0); LYMPH # 1.3 K/uL (1.0-4.3); LYMPH % 18.3 % (20.0-40.0); MEAN CELL VOLUME 88.3 fl (81.0-99.0); MEAN CORPUSCULAR HEMOGLOBIN 28.9 pg (27.0-31.0); MEAN CORPUSCULAR HGB CONC 32.7 g/dL (33.0-37.0); MEAN PLATELET VOLUME 7.7 fl (7.2-11.7); MONO # 0.8 K/uL (0.0-0.8); MONO % 11.2 % (0.0-10.0); NEUT # 4.5 K/uL (1.8-7.0); NEUT % 64.6 % (50.0-75.0); NRBC % 0.1 % (0.0-0.0); RBC 3.78 Mil/uL (3.80-5.20); WHITE BLOOD COUNT 6.9 K/uL (4.8-10.8)
[2017-10-01 19:35] LABS: ALB/GLOB RATIO 0.9 (1.0-2.1); ALBUMIN 3.4 g/dL (3.5-5.0); ALT/SGPT 17 U/L (9-52); AST/SGOT 20 U/L (14-36); BLOOD UREA NITROGEN 19 mg/dl (7-17); CALCIUM 9.2 mg/dL (8.4-10.2); GFR AFRICAN-AMERICAN > 60; GFR NON-AFRICAN AMERICAN > 60; LIPASE 28 U/L (23-300)
--- NOTE | 2017-10-01 19:40 | CP.PCM.CON ---
<Popeye Mahmood D - Last Filed: 10/01/17 19:42> History of Present Illness - History of Present Illness History of Present Illness: SURGERY CONSULT NOTE FOR DR. KABA 89F presents with abdominal pain that began last week. Patient was seen in the office on Wednesday and was found to have fecal impaction after examination of stoma. Patient was given enemas but did not help patient. Patient states abdominal pain is a lot, states it is around the stoma site, denies nausea, vomiting, denies fevers or chills. Patient was given enema in ED also but did not help. Kandis's procedure was done last year in february after patient had perforated sigmoid diverticulitis. PMH:Anemia, Arthritis, CAD, Cardia Arrhythmia, CHF, Diverticulitis, Gastritis, Hiatal Hernia, Osteoporosis PSH: Kandis's procedure, appendectomy, cholecystectomy Social: denies tobacco, alcohol and illicit drug use Allergies:Iodine, latex, codeine, lidocaine, apple, banana Past Patient History - Infectious Disease Hx of Infectious Diseases: None - Past Medical History & Family History Past Medical History?: Yes - Past Social History Alcohol: None Drugs: Denies - CARDIAC Hx Cardia Arrhythmia: Yes Hx Congestive Heart Failure: Yes - PULMONARY Hx Respiratory Disorders: No - NEUROLOGICAL Hx Neurological Disorder: No - HEENT Hx HEENT Problems: No - RENAL Hx Chronic Kidney Disease: No - ENDOCRINE/METABOLIC Hx Endocrine Disorders: No - HEMATOLOGICAL/ONCOLOGICAL Hx Anemia: Yes Hx Human Immunodeficiency Virus (HIV): No - INTEGUMENTARY Hx Dermatological Problems: No - MUSCULOSKELETAL/RHEUMATOLOGICAL Hx Arthritis: Yes Hx Osteoporosis: Yes - GASTROINTESTINAL Hx Diverticulitis: Yes Hx Gastritis: Yes - GENITOURINARY/GYNECOLOGICAL Hx Genitourinary Disorders: No - PSYCHIATRIC Hx Psychophysiologic Disorder: Yes - SURGICAL HISTORY Hx Appendectomy: Yes Hx Cholecystectomy: Yes - ANESTHESIA Hx Anesthesia: Yes Hx Anesthesia Reactions: No Hx Malignant Hyperthermia: No Meds Allergies/Adverse Reactions: Allergies Allergy/AdvReac Type Severity Reaction Status Date / Time apple Allergy SHORTNESS Verified 10/01/17 13:46 OF BREATH banana Allergy SHORTNESS Verified 10/01/17 13:46 OF BREATH FISH Allergy SHORTNESS Verified 10/01/17 13:46 OF BREATH iodine Allergy SHORTNESS Verified 10/01/17 13:46 OF BREATH latex Allergy RASH Verified 10/01/17 13:46 codeine AdvReac ANAPHYLAXIS Verified 10/01/17 13:46 lidocaine AdvReac ANAPHYLAXIS Verified 10/01/17 13:46 - Medications Medications: Current Medications Sodium Chloride (Sodium Chloride 0.9%) 500 mls @ 100 mls/hr IV .Q5H STA Stop: 10/01/17 23:04 Physical Exam - Constitutional Appears: Well, Non-toxic, No Acute Distress - ENT Exam ENT Exam: Mucous Membranes Moist - Respiratory Exam Respiratory Exam: Clear to Auscultation Bilateral, NORMAL BREATHING PATTERN - Cardiovascular Exam Cardiovascular Exam: REGULAR RHYTHM, +S1, +S2 - GI/Abdominal Exam GI & Abdominal Exam: Soft, Tenderness. absent: Distended, Firm, Guarding, Rebound, Rigid Additional comments: tenderness to palpation around stoma stoma in place - Extremities Exam Extremities exam: Negative for: pedal edema, tenderness - Neurological Exam Neurological exam: Alert, Oriented x3 - Psychiatric Exam Psychiatric exam: Normal Affect, Normal Mood - Skin Skin Exam: Dry, Normal Color, Warm Results - Vital Signs Recent Vital Signs: Last Vital Signs Temp 98.8 F 10/01/17 13:46 Pulse 90 10/01/17 13:46 Resp 18 10/01/17 13:46 BP 128/76 10/01/17 13:46 Pulse Ox 99 10/01/17 18:06 - Labs Result Diagrams: 10/01/17 18:30 10/01/17 18:30 Labs: Laboratory Results - last 24 hr 10/01/17 18:30 WBC 6.9 RBC 3.78 L Hgb 10.9 L Hct 33.4 L MCV 88.3 MCH 28.9 MCHC 32.7 L RDW 16.0 H Plt Count 311 MPV 7.7 Neut % (Auto) 64.6 Lymph % (Auto) 18.3 L [place] % (Auto) 11.2 H Eos % (Auto) 5.6 H Baso % (Auto) 0.3 Neut # (Auto) 4.5 Lymph # (Auto) 1.3 [place] # (Auto) 0.8 Eos # (Auto) 0.4 Baso # (Auto) 0.0 Assessment & Plan - Assessment and Plan (Free Text) Assessment: 89F with fecal impaction at site of stoma Plan: - continue enemas, IVF - patient to go for CT abd/pelvis with PO contrast - Ostomy bag placed Discussed with Dr. chance Mahmood, PGY2 <Damon Kaba - Last Filed: 10/02/17 16:26> History of Present Illness - History of Present Illness History of Present Illness: Patient was seen and examined at the bedside. Agree with resident's note above. Meds - Medications Medications: Current Medications Acetaminophen (Tylenol 325mg Tab) 650 mg PO Q4 PRN PRN Reason: Pain, severe (8-10) Last Admin: 10/02/17 07:03 Dose: 650 mg Docusate Sodium (Colace) 100 mg PO BID EMANI Last Admin: 10/02/17 08:31 Dose: Not Given Ciprofloxacin (Cipro 200mg/100ml D5w) 100 mls @ 100 mls/hr IVPB Q12 EMANI PRN Reason: Protocol Last Admin: 10/02/17 08:31 Dose: Not Given Metronidazole (Flagyl 500mg/100ml Ns) 100 mls @ 100 mls/hr IVPB Q8 EMANI PRN Reason: Protocol Last Admin: 10/02/17 09:30 Dose: 100 mls/hr Sodium Chloride (Sodium Chloride 0.9%) 1,000 mls @ 100 mls/hr IV .Q10H EMANI Stop: 10/03/17 02:49 Last Admin: 10/02/17 04:51 Dose: 100 mls/hr Ondansetron HCl (Zofran Inj) 4 mg IVP Q8H PRN PRN Reason: Nausea/Vomiting Results - Vital Signs Recent Vital Signs: Last Vital Signs Temp 98.7 F 10/02/17 15:46 Pulse 87 10/02/17 15:46 Resp 20 10/02/17 15:46 BP 121/80 10/02/17 15:46 Pulse Ox 95 10/02/17 15:46 - Labs Result Diagrams: 10/02/17 06:20 10/02/17 06:20 Labs: Laboratory Results - last 24 hr 10/01/17 10/01/17 10/01/17 18:30 18:30 18:52 WBC 6.9 RBC 3.78 L Hgb 10.9 L Hct 33.4 L MCV 88.3 MCH 28.9 MCHC 32.7 L RDW 16.0 H Plt Count 311 MPV 7.7 Neut % (Auto) 64.6 Lymph % (Auto) 18.3 L [place] % (Auto) 11.2 H Eos % (Auto) 5.6 H Baso % (Auto) 0.3 Neut # (Auto) 4.5 Lymph # (Auto) 1.3 [place] # (Auto) 0.8 Eos # (Auto) 0.4 Baso # (Auto) 0.0 PT 13.7 H INR 1.2 APTT 16.6 L Sodium 136 Potassium 4.2 Chloride 97 L Carbon Dioxide 25 Anion Gap 18 BUN 19 H Creatinine 0.7 Est GFR ( Amer) > 60 Est GFR (Non-Af Amer) > 60 Random Glucose 106 H Calcium 9.2 Total Bilirubin 0.4 AST 20 ALT 17 Alkaline Phosphatase 86 Total Protein 7.5 Albumin 3.4 L Globulin 4.0 H Albumin/Globulin Ratio 0.9 L Lipase 28 10/02/17 10/02/17 06:20 06:20 WBC 6.6 RBC 3.70 L Hgb 10.8 L Hct 32.5 L MCV 88.0 MCH 29.2 MCHC 33.2 RDW 16.2 H Plt Count 308 MPV 7.7 Neut % (Auto) 67.2 Lymph % (Auto) 15.3 L [place] % (Auto) 12.3 H Eos % (Auto) 4.7 H Baso % (Auto) 0.5 Neut # (Auto) 4.4 Lymph # (Auto) 1.0 [place] # (Auto) 0.8 Eos # (Auto) 0.3 Baso # (Auto) 0.0 PT INR APTT Sodium 136 Potassium 4.5 Chloride 97 L Carbon Dioxide 27 Anion Gap 17 BUN 16 Creatinine 0.8 Est GFR ( Amer) > 60 Est GFR (Non-Af Amer) > 60 Random Glucose 99 Calcium 8.9 Total Bilirubin 0.4 AST 35 ALT 24 Alkaline Phosphatase 80 Total Protein 7.0 Albumin 3.4 L Globulin 3.7 Albumin/Globulin Ratio 0.9 L Lipase - Imaging and Cardiology CT scan - abdomen Status: Image reviewed by me, Report reviewed by me Assessment & Plan - Assessment and Plan (Free Text) Assessment: 89 y.o. female with colitis and constipation Plan: - Keep NPO - IV fluids - pain control - Tap water enema's via colostomy - Continue antibiotics for colitis - GI consultation for constipation - No general surgery intervention at present time - Repeat labs in am - Will follow
[2017-10-01 19:41] LABS: INR 1.2 (0.9-1.2); PROTHROMBIN TIME 13.7 Seconds (9.8-13.1)
[2017-10-01 19:42] LABS: PARTIAL THROMBOPLASTIN TIME 16.6 Seconds (25.6-37.1)
[2017-10-01] MEDS: Sodium Chloride 0.9% 500 ML IV STA ×2 (21:08→22:04)
[2017-10-01] MEDS ORDERED: Morphine 4 MG/ML VIAL IM ONE (21:15)
[2017-10-01] MEDS ORDERED: Morphine 4 MG/ML VIAL ONE (21:18)
--- NOTE | 2017-10-02 00:15 | ED PDOC ---
- Laboratory Results Result Diagrams: 10/02/17 06:20 10/02/17 06:20 - ECG O2 Sat by Pulse Oximetry: 99 (RA) Medical Decision Making Medical Decision Making: Time: 00:00 Patient is signed over to me by Dr. Hugo Girard pending CT and reevaluation. Time: 00:46 Abdomen/Pelvis CT FINDINGS: Lower thorax: Small bilateral pleural effusions with bibasilar atelectasis or infiltrate. A small hiatal hernia is present. There is contrast in the distal esophagus suggesting gastroesophageal reflux. ABDOMEN: Liver: Unremarkable. No mass. Gallbladder and bile ducts: There has been a cholecystectomy. No ductal dilation. Pancreas: Unremarkable. No mass. No ductal dilation. Spleen: Unremarkable. No splenomegaly. Adrenals: Unremarkable. No mass. Kidneys and ureters: There are bilateral renal cysts. Stable calcified left lower pole renal cyst. No hydronephrosis. Stomach and bowel: There is a moderate amount of retained stool in the colon. Partial left colectomy with left lower quadrant colostomy. Fat-containing parastomal hernia.The descending colon is diffusely thickwalled with mild adjacent inflammatory stranding suggesting acute colitis. No obstruction. Appendix: No findings to suggest acute appendicitis. Not visualized. PELVIS: Bladder: Unremarkable. No mass. Reproductive: Unremarkable as visualized. ABDOMEN and PELVIS: Intraperitoneal space: Unremarkable. No free air. No significant fluid collection. Bones/joints: There is marked diffuse osteopenia. Multiple compression fractures are again demonstrated, unchanged. Status post vertebroplasty at T11 and L1. Vasculature: The vasculature demonstrates diffuse severe atherosclerotic calcification. No aneurysm. IMPRESSION: Acute colitis. Moderate amount of retained stool throughout the colon. Left lower quadrant colostomy with parastomal fat containing hernia. Small bilateral pleural effusions with bibasilar atelectasis/infiltrate. Small hiatal hernia. Possible gastroesophageal reflux. Cholecystectomy. Bilateral renal cysts. Stable left calcified renal cyst. --Case was discussed with Dr. Popeye Mahmood. -- Patient was reevaluated and case was discussed with Dr. Kaba Diagnosis: Acute colitis Scribe Attestation: Documented by Denise Sandhu acting as a scribe for Samuel Arguello MD. Scribe Attestation: All medical record entries made by the Scribe were at my direction and personally dictated by me. I have reviewed the chart and agree that the record accurately reflects my personal performance of the history, physical exam, medical decision making, and the department course for this patient. I have also personally directed, reviewed, and agree with the discharge instructions and disposition. Disposition - Clinical Impression Clinical Impression: Colitis - POA Present On Arrival: None - Disposition Disposition: Routine/Home Disposition Time: 01:00 Condition: STABLE
--- NOTE | 2017-10-02 00:46 | CT ---
EXAM: CT Abdomen and Pelvis With Intravenous Contrast CLINICAL HISTORY: 89 years old, female; Pain; Abdominal pain; Generalized; Prior surgery; Surgery date: 6+ months; Surgery type: Colostomy; Patient HX: See phys doc TECHNIQUE: Axial computed tomography images of the abdomen and pelvis with intravenous contrast. All CT scans at this facility use one or more dose reduction techniques, viz.: automated exposure control; ma/kV adjustment per patient size (including targeted exams where dose is matched to indication; i.e. head); or iterative reconstruction technique. Coronal and sagittal reformatted images were created and reviewed. CONTRAST: 900 mL of READI-CAT administered intravenously. COMPARISON: CT - ABDOMEN W/ ORAL CONT ONLY 2017-07-16 09:34 FINDINGS: Lower thorax: Small bilateral pleural effusions with bibasilar atelectasis or infiltrate. A small hiatal hernia is present. There is contrast in the distal esophagus suggesting gastroesophageal reflux. ABDOMEN: Liver: Unremarkable. No mass. Gallbladder and bile ducts: There has been a cholecystectomy. No ductal dilation. Pancreas: Unremarkable. No mass. No ductal dilation. Spleen: Unremarkable. No splenomegaly. Adrenals: Unremarkable. No mass. Kidneys and ureters: There are bilateral renal cysts. Stable calcified left lower pole renal cyst. No hydronephrosis. Stomach and bowel: There is a moderate amount of retained stool in the colon. Partial left colectomy with left lower quadrant colostomy. Fat-containing parastomal hernia.The descending colon is diffusely thickwalled with mild adjacent inflammatory stranding suggesting acute colitis. No obstruction. Appendix: No findings to suggest acute appendicitis. Not visualized. PELVIS: Bladder: Unremarkable. No mass. Reproductive: Unremarkable as visualized. ABDOMEN and PELVIS: Intraperitoneal space: Unremarkable. No free air. No significant fluid collection. Bones/joints: There is marked diffuse osteopenia. Multiple compression fractures are again demonstrated, unchanged. Status post vertebroplasty at T11 and L1. Vasculature: The vasculature demonstrates diffuse severe atherosclerotic calcification. No aneurysm. IMPRESSION: Acute colitis. Moderate amount of retained stool throughout the colon. Left lower quadrant colostomy with parastomal fat containing hernia. Small bilateral pleural effusions with bibasilar atelectasis/infiltrate. Small hiatal hernia. Possible gastroesophageal reflux. Cholecystectomy. Bilateral renal cysts. Stable left calcified renal cyst.
[2017-10-02] MEDS ORDERED: metroNIDAZOLE 500mg/100ml NS 100 ML IVPB STA (01:39)
[2017-10-02] MEDS ORDERED: Ciprofloxacin 400mg/200ml D5W 400 MG/200 ML BAG IV STA (01:39)
--- NOTE | 2017-10-02 04:27 | CP.PCM.PN ---
<Popeye Mahmood - Last Filed: 10/02/17 04:24> Subjective - Date & Time of Evaluation Date of Evaluation: 10/02/17 Time of Evaluation: 04:24 - Subjective Subjective: SURGERY PROGRESS NOTE FOR DR. KABA 89F seen and examined at bedside. Patient continue to complain of pain around the site of the stoma. She denies nausea/vomiting and states she has an appetite. No output out the ostomy so far. Objective - Vital Signs/Intake and Output Vital Signs (last 24 hours): Temp Pulse Resp BP Pulse Ox 100.0 F H 103 H 20 127/69 99 10/02/17 00:15 10/02/17 00:15 10/02/17 00:15 10/02/17 00:15 10/02/17 02:00 - Medications Medications: Current Medications Acetaminophen (Tylenol 325mg Tab) 650 mg PO Q4 PRN PRN Reason: Pain, severe (8-10) Docusate Sodium (Colace) 100 mg PO BID EMANI Ciprofloxacin (Cipro 200mg/100ml D5w) 100 mls @ 100 mls/hr IVPB Q12 EMANI PRN Reason: Protocol Metronidazole (Flagyl 500mg/100ml Ns) 100 mls @ 100 mls/hr IVPB Q8 EMANI PRN Reason: Protocol Sodium Chloride (Sodium Chloride 0.9%) 1,000 mls @ 100 mls/hr IV .Q10H EMANI Stop: 10/03/17 02:49 - Labs Labs: 10/01/17 18:30 10/01/17 18:30 PT 13.7 Seconds (9.8-13.1) H 10/01/17 18:52 INR 1.2 (0.9-1.2) 10/01/17 18:52 APTT 16.6 Seconds (25.6-37.1) L 10/01/17 18:52 - Constitutional Appears: Well, Non-toxic, No Acute Distress - Respiratory Exam Respiratory Exam: Clear to Ausculation Bilateral, NORMAL BREATHING PATTERN - Cardiovascular Exam Cardiovascular Exam: REGULAR RHYTHM, +S1, +S2 - GI/Abdominal Exam GI & Abdominal Exam: Soft, Tenderness. absent: Distended, Firm, Guarding, Rigid , Rebound Additional comments: parastomal hernia mild tenderness around ostomy no output yet, stoma is pink - Neurological Exam Neurological Exam: Alert, Awake - Psychiatric Exam Psychiatric exam: Normal Affect, Normal Mood - Skin Skin Exam: Dry, Intact, Normal Color, Warm Assessment and Plan - Assessment and Plan (Free Text) Assessment: 89F with colitis and fecal impaction Plan: NPO, IVF, pain control Antibiotics, Enemas Monitor for stoma function Further recs discuss with Dr. Sesar Mahmood, PGY2 <Damon Kaba - Last Filed: 10/02/17 16:27> Subjective - Date & Time of Evaluation Time of Evaluation: 16:00 - Subjective Subjective: Patient was seen and examined at the bedside. Agree with resident's note above. Objective - Vital Signs/Intake and Output Vital Signs (last 24 hours): Temp Pulse Resp BP Pulse Ox 98.7 F 87 20 121/80 95 10/02/17 15:46 10/02/17 15:46 10/02/17 15:46 10/02/17 15:46 10/02/17 15:46 - Medications Medications: Current Medications Acetaminophen (Tylenol 325mg Tab) 650 mg PO Q4 PRN PRN Reason: Pain, severe (8-10) Last Admin: 10/02/17 07:03 Dose: 650 mg Docusate Sodium (Colace) 100 mg PO BID EMANI Last Admin: 10/02/17 08:31 Dose: Not Given Ciprofloxacin (Cipro 200mg/100ml D5w) 100 mls @ 100 mls/hr IVPB Q12 EMANI PRN Reason: Protocol Last Admin: 10/02/17 08:31 Dose: Not Given Metronidazole (Flagyl 500mg/100ml Ns) 100 mls @ 100 mls/hr IVPB Q8 EMANI PRN Reason: Protocol Last Admin: 10/02/17 09:30 Dose: 100 mls/hr Sodium Chloride (Sodium Chloride 0.9%) 1,000 mls @ 100 mls/hr IV .Q10H EMANI Stop: 10/03/17 02:49 Last Admin: 10/02/17 04:51 Dose: 100 mls/hr Ondansetron HCl (Zofran Inj) 4 mg IVP Q8H PRN PRN Reason: Nausea/Vomiting - Labs Labs: 10/02/17 06:20 10/02/17 06:20 PT 13.7 Seconds (9.8-13.1) H 10/01/17 18:52 INR 1.2 (0.9-1.2) 18 18:52 APTT 16.6 Seconds (25.6-37.1) L 10/01/17 18:52 Assessment and Plan - Assessment and Plan (Free Text) Plan: - Keep NPO - IV fluids - pain control - Tap water enema's via colostomy - Continue antibiotics for colitis - GI consultation for constipation - No general surgery intervention at present time - Repeat labs in am - Will follow
[2017-10-02] MEDS ORDERED: Ciprofloxacin 400mg/200ml D5W 400 MG/200 ML BAG IVPB ONE (04:50)
[2017-10-02] MEDS: Sodium Chloride 0.9% 1,000 ML IV SCH ×2 (04:51→23:00)
[2017-10-02] MEDS: metroNIDAZOLE 500mg/100ml NS 100 ML IVPB SCH ×3 (06:10→16:52)
[2017-10-02 06:57] LABS: BASO % 0.5 % (0.0-2.0); EOS # 0.3 K/uL (0.0-0.7); EOS % 4.7 % (0.0-4.0); HEMOGLOBIN 10.8 g/dL (12.0-16.0); LYMPH % 15.3 % (20.0-40.0); MEAN CORPUSCULAR HEMOGLOBIN 29.2 pg (27.0-31.0); MEAN CORPUSCULAR HGB CONC 33.2 g/dL (33.0-37.0); MEAN PLATELET VOLUME 7.7 fl (7.2-11.7); MONO # 0.8 K/uL (0.0-0.8); MONO % 12.3 % (0.0-10.0); NEUT # 4.4 K/uL (1.8-7.0); NEUT % 67.2 % (50.0-75.0); RBC 3.7 Mil/uL (3.80-5.20); RED CELL DISTRIBUTION WIDTH 16.2 % (11.5-14.5); WHITE BLOOD COUNT 6.6 K/uL (4.8-10.8)
[2017-10-02 07:11] LABS: ALB/GLOB RATIO 0.9 (1.0-2.1); ALBUMIN 3.4 g/dL (3.5-5.0); ALT/SGPT 24 U/L (9-52); AST/SGOT 35 U/L (14-36); BLOOD UREA NITROGEN 16 mg/dl (7-17); CALCIUM 8.9 mg/dL (8.4-10.2); GFR AFRICAN-AMERICAN > 60; GFR NON-AFRICAN AMERICAN > 60
[2017-10-02] MEDS: Ciprofloxacin 200mg/100ml D5W 100 ML IVPB SCH ×2 (08:31→21:03)
--- NOTE | 2017-10-02 16:41 | CP.PCM.HP ---
Past Patient History - Infectious Disease Hx of Infectious Diseases: None - Past Medical History & Family History Past Medical History?: Yes - Past Social History Smoking Status: Never Smoked - CARDIAC Hx Cardiac Disorders: Yes (CHF, arrhythmia) Hx Congestive Heart Failure: Yes - PULMONARY Hx Respiratory Disorders: No - NEUROLOGICAL Hx Neurological Disorder: No - HEENT Hx HEENT Problems: No - RENAL Hx Chronic Kidney Disease: No - ENDOCRINE/METABOLIC Hx Endocrine Disorders: (gastritis, colostomy) - HEMATOLOGICAL/ONCOLOGICAL Hx Blood Disorders: Yes (anemia) Hx Anemia: Yes - INTEGUMENTARY Hx Dermatological Problems: No - MUSCULOSKELETAL/RHEUMATOLOGICAL Hx Musculoskeletal Disorders: Yes Hx Arthritis: Yes Hx Falls: Yes Hx Osteoporosis: Yes - GASTROINTESTINAL Hx Gastrointestinal Disorders: Yes Hx Colostomy: Yes Hx Constipation: Yes Hx Diverticulitis: Yes Hx Gastritis: Yes Other/Comment: Hiatal Hernia - GENITOURINARY/GYNECOLOGICAL Hx Genitourinary Disorders: No - PSYCHIATRIC Hx Psychophysiologic Disorder: No Hx Substance Use: No - SURGICAL HISTORY Hx Surgeries: Yes Hx Appendectomy: Yes Hx Cholecystectomy: Yes Other/Comment: Feb 2017 Kandis's procedure - ANESTHESIA Hx Anesthesia: Yes Hx Anesthesia Reactions: No Hx Malignant Hyperthermia: No Has any member of the family had a problem w/ anesthesia?: No Meds Allergies/Adverse Reactions: Allergies Allergy/AdvReac Type Severity Reaction Status Date / Time apple Allergy SHORTNESS Verified 10/01/17 13:46 OF BREATH banana Allergy SHORTNESS Verified 10/01/17 13:46 OF BREATH FISH Allergy SHORTNESS Verified 10/01/17 13:46 OF BREATH iodine Allergy SHORTNESS Verified 10/01/17 13:46 OF BREATH latex Allergy RASH Verified 10/01/17 13:46 codeine AdvReac ANAPHYLAXIS Verified 10/01/17 13:46 lidocaine AdvReac ANAPHYLAXIS Verified 10/01/17 13:46 Results - Vital Signs Recent Vital Signs: Last Vital Signs Temp 98.7 F 10/02/17 15:46 Pulse 87 10/02/17 15:46 Resp 20 10/02/17 15:46 BP 121/80 10/02/17 15:46 Pulse Ox 95 10/02/17 15:46 - Labs Result Diagrams: 10/02/17 06:20 10/02/17 06:20 Labs: Laboratory Results - last 24 hr 10/01/17 10/01/17 10/01/17 18:30 18:30 18:52 WBC 6.9 RBC 3.78 L Hgb 10.9 L Hct 33.4 L MCV 88.3 MCH 28.9 MCHC 32.7 L RDW 16.0 H Plt Count 311 MPV 7.7 Neut % (Auto) 64.6 Lymph % (Auto) 18.3 L [place] % (Auto) 11.2 H Eos % (Auto) 5.6 H Baso % (Auto) 0.3 Neut # (Auto) 4.5 Lymph # (Auto) 1.3 [place] # (Auto) 0.8 Eos # (Auto) 0.4 Baso # (Auto) 0.0 PT 13.7 H INR 1.2 APTT 16.6 L Sodium 136 Potassium 4.2 Chloride 97 L Carbon Dioxide 25 Anion Gap 18 BUN 19 H Creatinine 0.7 Est GFR ( Amer) > 60 Est GFR (Non-Af Amer) > 60 Random Glucose 106 H Calcium 9.2 Total Bilirubin 0.4 AST 20 ALT 17 Alkaline Phosphatase 86 Total Protein 7.5 Albumin 3.4 L Globulin 4.0 H Albumin/Globulin Ratio 0.9 L Lipase 28 18 10/02/17 06:20 06:20 WBC 6.6 RBC 3.70 L Hgb 10.8 L Hct 32.5 L MCV 88.0 MCH 29.2 MCHC 33.2 RDW 16.2 H Plt Count 308 MPV 7.7 Neut % (Auto) 67.2 Lymph % (Auto) 15.3 L [place] % (Auto) 12.3 H Eos % (Auto) 4.7 H Baso % (Auto) 0.5 Neut # (Auto) 4.4 Lymph # (Auto) 1.0 [place] # (Auto) 0.8 Eos # (Auto) 0.3 Baso # (Auto) 0.0 PT INR APTT Sodium 136 Potassium 4.5 Chloride 97 L Carbon Dioxide 27 Anion Gap 17 BUN 16 Creatinine 0.8 Est GFR ( Amer) > 60 Est GFR (Non-Af Amer) > 60 Random Glucose 99 Calcium 8.9 Total Bilirubin 0.4 AST 35 ALT 24 Alkaline Phosphatase 80 Total Protein 7.0 Albumin 3.4 L Globulin 3.7 Albumin/Globulin Ratio 0.9 L Lipase
[2017-10-02] MEDS: Digoxin 250 mcg (0.25 mg) Tab PO SCH (20:00)
[2017-10-03] MEDS: metroNIDAZOLE 500mg/100ml NS 100 ML IVPB SCH ×3 (00:31→17:10)
[2017-10-03] MEDS: Sodium Chloride 0.9% 1,000 ML IV SCH (00:32)
[2017-10-03] MEDS: Ciprofloxacin 200mg/100ml D5W 100 ML IVPB SCH ×2 (08:28→20:35)
[2017-10-03] MEDS: Digoxin 250 mcg (0.25 mg) Tab PO SCH (08:29)
[2017-10-03] MEDS ORDERED: Digoxin 250 mcg (0.25 mg) Tab PO SCH (09:00)
--- NOTE | 2017-10-03 09:12 | PN ---
DATE: 10/03/2017 SUBJECTIVE: The patient is seen and examined. Interim events noted. The patient remains in regular medical floor. She complains of abdominal discomfort, but it is much better than before. No chest pain. No shortness of pain. and no blood. PHYSICAL EXAMINATION: GENERAL: The patient is in no acute distress. VITAL SIGNS: Stable. HEART: S1 and S2 normal and regular. LUNGS: Good bilateral air entry. ABDOMEN: Soft and nontender. Colostomy bag is in good position and functioning. . CENTRAL NERVOUS SYSTEMS: Exam is essentially unchanged. DIAGNOSTIC DATA: Available diagnostic data reviewed. IMPRESSION AND PLAN: Overall, the patient's general medical condition is stable. Plan as ordered. Migue Wells MD
--- NOTE | 2017-10-03 09:57 | CP.PCM.PN ---
<Popeye Mahmood - Last Filed: 10/03/17 09:53> Subjective - Date & Time of Evaluation Date of Evaluation: 10/03/17 Time of Evaluation: 09:54 - Subjective Subjective: SURGERY PROGRESS NOTE FOR DR. KABA 89F seen and examined at bedside. Patient states pain is much more controlled with medication, denies nausea, vomiting. Patient began having output out the ostomy last night and current has approx 200cc of stool in ostomy bag. Objective - Vital Signs/Intake and Output Vital Signs (last 24 hours): Temp Pulse Resp BP Pulse Ox 98.2 F 78 18 137/80 96 10/03/17 07:46 10/03/17 07:46 10/03/17 07:46 10/03/17 08:29 10/03/17 07:46 - Medications Medications: Current Medications Acetaminophen (Tylenol 325mg Tab) 650 mg PO Q4 PRN PRN Reason: Pain, severe (8-10) Last Admin: 10/02/17 14:05 Dose: 650 mg Digoxin (Lanoxin) 0.25 mg PO DAILY [facility] Last Admin: 10/03/17 08:29 Dose: 0.25 mg Docusate Sodium (Colace) 100 mg PO BID [facility] Last Admin: 10/03/17 08:30 Dose: 100 mg Furosemide (Lasix) 20 mg PO DAILY [facility] Last Admin: 10/03/17 08:29 Dose: 20 mg Ciprofloxacin (Cipro 200mg/100ml D5w) 100 mls @ 100 mls/hr IVPB Q12 [facility] PRN Reason: Protocol Last Admin: 10/03/17 08:28 Dose: 100 mls/hr Metronidazole (Flagyl 500mg/100ml Ns) 100 mls @ 100 mls/hr IVPB Q8 [facility] PRN Reason: Protocol Last Admin: 10/03/17 08:28 Dose: 100 mls/hr Ketorolac Tromethamine (Toradol) 15 mg IVP Q6 PRN PRN Reason: Pain, moderate (4-7) Last Admin: 10/03/17 08:22 Dose: 15 mg Ondansetron HCl (Zofran Inj) 4 mg IVP Q8H PRN PRN Reason: Nausea/Vomiting Last Admin: 10/02/17 20:56 Dose: 4 mg - Labs Labs: 10/02/17 06:20 10/02/17 06:20 PT 13.7 Seconds (9.8-13.1) H 10/01/17 18:52 INR 1.2 (0.9-1.2) 10/01/17 18:52 APTT 16.6 Seconds (25.6-37.1) L 10/01/17 18:52 - Constitutional Appears: Well, Non-toxic, No Acute Distress - Respiratory Exam Respiratory Exam: Clear to Ausculation Bilateral, NORMAL BREATHING PATTERN - Cardiovascular Exam Cardiovascular Exam: REGULAR RHYTHM, +S1, +S2 - GI/Abdominal Exam GI & Abdominal Exam: Soft, Tenderness (midl tenderness around stoma). absent: Distended, Firm, Guarding, Rigid, Rebound Additional comments: stool in the ostomy, approx 200cc - Neurological Exam Neurological Exam: Alert, Awake Assessment and Plan - Assessment and Plan (Free Text) Assessment: 89F with colitis and stool impaction Plan: Stool impaction resolving Poss advance diet Continue antibiotics Pain control Further recs discuss with Dr. chance Mahmood, PGY2 <Damon Kaba - Last Filed: 10/03/17 14:22> Subjective - Date & Time of Evaluation Time of Evaluation: 13:55 - Subjective Subjective: Patient was seen and examined at the bedside. Agree with resident's note above. Objective - Vital Signs/Intake and Output Vital Signs (last 24 hours): Temp Pulse Resp BP Pulse Ox 98.2 F 78 18 137/80 96 10/03/17 07:46 10/03/17 07:46 10/03/17 07:46 10/03/17 08:29 10/03/17 07:46 - Medications Medications: Current Medications Acetaminophen (Tylenol 325mg Tab) 650 mg PO Q4 PRN PRN Reason: Pain, severe (8-10) Last Admin: 10/03/17 11:10 Dose: 650 mg Digoxin (Lanoxin) 0.25 mg PO DAILY [facility] Last Admin: 10/03/17 08:29 Dose: 0.25 mg Docusate Sodium (Colace) 100 mg PO BID [facility] Last Admin: 10/03/17 08:30 Dose: 100 mg Furosemide (Lasix) 20 mg PO DAILY [facility] Last Admin: 10/03/17 08:29 Dose: 20 mg Ciprofloxacin (Cipro 200mg/100ml D5w) 100 mls @ 100 mls/hr IVPB Q12 [facility] PRN Reason: Protocol Last Admin: 10/03/17 08:28 Dose: 100 mls/hr Metronidazole (Flagyl 500mg/100ml Ns) 100 mls @ 100 mls/hr IVPB Q8 [facility] PRN Reason: Protocol Last Admin: 10/03/17 08:28 Dose: 100 mls/hr Ondansetron HCl (Zofran Inj) 4 mg IVP Q8H PRN PRN Reason: Nausea/Vomiting Last Admin: 10/03/17 11:08 Dose: 4 mg - Labs Labs: 10/02/17 06:20 10/02/17 06:20 PT 13.7 Seconds (9.8-13.1) H 10/01/17 18:52 INR 1.2 (0.9-1.2) 10/01/17 18:52 APTT 16.6 Seconds (25.6-37.1) L 10/01/17 18:52 Assessment and Plan - Assessment and Plan (Free Text) Plan: - start clear liquid diet - Pain control - Antibiotics - repeat labs in am - Will follow
[2017-10-03] MEDS: Alum-Mag Hydrox-Simethicone Susp (30 mL) PO PRN (15:00)
[2017-10-03] MEDS ORDERED: DiphenhydrAMINE 50 mg/ml Inj IVP STA (22:24)
[2017-10-04] MEDS: metroNIDAZOLE 500mg/100ml NS 100 ML IVPB SCH ×3 (00:17→17:17)
[2017-10-04 06:46] LABS: HEMOGLOBIN 9.5 g/dL (12.0-16.0); MEAN CELL VOLUME 87.8 fl (81.0-99.0); MEAN CORPUSCULAR HEMOGLOBIN 28.8 pg (27.0-31.0); MEAN CORPUSCULAR HGB CONC 32.8 g/dL (33.0-37.0); RBC 3.31 Mil/uL (3.80-5.20); RED CELL DISTRIBUTION WIDTH 15.5 % (11.5-14.5); WHITE BLOOD COUNT 5.5 K/uL (4.8-10.8)
[2017-10-04 06:57] LABS: ALB/GLOB RATIO 0.9 (1.0-2.1); ALBUMIN 2.8 g/dL (3.5-5.0); ALT/SGPT 33 U/L (9-52); AST/SGOT 19 U/L (14-36); BLOOD UREA NITROGEN 15 mg/dl (7-17); CALCIUM 8.2 mg/dL (8.4-10.2); GFR AFRICAN-AMERICAN > 60; GFR NON-AFRICAN AMERICAN 59
--- NOTE | 2017-10-04 09:26 | PN ---
DATE: 10/04/2017 SUBJECTIVE: The patient is seen and examined. Interim events noted. Consults noted and appreciated. Surgical followup and interventions noted and appreciated. The patient remains in regular medical floor at bedside. The patient is sleepy and arousable, feels better. Abdominal pain improved. No chest pain. No shortness of breath. No other complaints. PHYSICAL EXAMINATION: GENERAL: The patient is in no acute distress. VITAL SIGNS: Stable. HEART: S1 and S2, normal and regular. LUNGS: Good bilateral air exchange. ABDOMEN: The patient has colostomy tube, which is functioning fine. No sign of acute abdomen. No guarding, no rigidity, no rebound. Bowel sounds are plus and normal. EXTREMITIES: No edema, no calf swelling. No tenderness. No acute ischemia. MAIL WEIGHER: Essentially unchanged. DIAGNOSTIC DATA: Available diagnostic data reviewed. PLAN: Overall, the patient's general medical condition is stable. Plan as ordered. Migue Wells MD
[2017-10-04] MEDS: Ciprofloxacin 200mg/100ml D5W 100 ML IVPB SCH ×2 (09:30→21:00)
[2017-10-04] MEDS: Digoxin 250 mcg (0.25 mg) Tab PO SCH (09:31)
--- NOTE | 2017-10-04 11:16 | CP.PCM.PN ---
Addendum entered and electronically signed by Wilbert Logan DO 10/04/17 12:22: Will start patient on low residue diet Original Note: <Wilbert Logan - Last Filed: 10/04/17 11:19> Subjective - Date & Time of Evaluation Date of Evaluation: 10/04/17 Time of Evaluation: 07:40 - Subjective Subjective: Patient seen and examined. No complaints. Patient having output into ostomy. Denies nausea/vomiting, abdominal pain. Review of vitals is normal. Objective - Vital Signs/Intake and Output Vital Signs (last 24 hours): Temp Pulse Resp BP Pulse Ox 98.7 F 87 18 117/70 98 10/04/17 08:26 10/04/17 08:26 10/04/17 08:26 10/04/17 09:31 10/04/17 08:26 - Medications Medications: Current Medications Acetaminophen (Tylenol 325mg Tab) 650 mg PO Q4 PRN PRN Reason: Pain, severe (8-10) Last Admin: 10/04/17 09:33 Dose: 650 mg Al Hydrox/Mg Hydrox/Simethicone (Maalox Plus 30 Ml) 30 ml PO BID PRN PRN Reason: heartburn, upset stomach Last Admin: 10/03/17 15:00 Dose: 30 ml Digoxin (Lanoxin) 0.25 mg PO DAILY [facility] Last Admin: 10/04/17 09:31 Dose: 0.25 mg Docusate Sodium (Colace) 100 mg PO BID [facility] Last Admin: 10/04/17 09:31 Dose: 100 mg Furosemide (Lasix) 20 mg PO DAILY [facility] Last Admin: 10/04/17 09:31 Dose: 20 mg Ciprofloxacin (Cipro 200mg/100ml D5w) 100 mls @ 100 mls/hr IVPB Q12 [facility] PRN Reason: Protocol Last Admin: 10/04/17 09:30 Dose: 100 mls/hr Metronidazole (Flagyl 500mg/100ml Ns) 100 mls @ 100 mls/hr IVPB Q8 [facility] PRN Reason: Protocol Last Admin: 10/04/17 09:30 Dose: 100 mls/hr Ondansetron HCl (Zofran Inj) 4 mg IVP Q8H PRN PRN Reason: Nausea/Vomiting Last Admin: 10/03/17 18:37 Dose: 4 mg - Labs Labs: 10/04/17 05:30 10/04/17 05:30 PT 13.7 Seconds (9.8-13.1) H 10/01/17 18:52 INR 1.2 (0.9-1.2) 10/01/17 18:52 APTT 16.6 Seconds (25.6-37.1) L 10/01/17 18:52 - Constitutional Appears: No Acute Distress - Head Exam Head Exam: NORMOCEPHALIC - Eye Exam Eye Exam: EOMI, Normal appearance - ENT Exam ENT Exam: Mucous Membranes Moist - Respiratory Exam Respiratory Exam: NORMAL BREATHING PATTERN - Cardiovascular Exam Cardiovascular Exam: +S1, +S2 - GI/Abdominal Exam GI & Abdominal Exam: Soft. absent: Distended, Firm, Guarding, Rigid - Neurological Exam Neurological Exam: Alert, Awake, Oriented x3 - Psychiatric Exam Psychiatric exam: Normal Mood - Skin Skin Exam: Normal Color, Warm Assessment and Plan - Assessment and Plan (Free Text) Assessment: 89F w/ colitis and constipation Plan: - Adv diet as tolerated - Pain control - Antibiotics -Medical management per primary team -Further recs per Dr. Sesar Katz PGY2 <Damon Kaba - Last Filed: 10/04/17 12:32> Subjective - Date & Time of Evaluation Time of Evaluation: 11:50 - Subjective Subjective: Patient was seen and examined at the bedside. Agree with resident's note above. Objective - Vital Signs/Intake and Output Vital Signs (last 24 hours): Temp Pulse Resp BP Pulse Ox 98.7 F 87 18 117/70 98 10/04/17 08:26 10/04/17 08:26 10/04/17 08:26 10/04/17 09:31 10/04/17 08:26 - Medications Medications: Current Medications Acetaminophen (Tylenol 325mg Tab) 650 mg PO Q4 PRN PRN Reason: Pain, severe (8-10) Last Admin: 10/04/17 09:33 Dose: 650 mg Al Hydrox/Mg Hydrox/Simethicone (Maalox Plus 30 Ml) 30 ml PO BID PRN PRN Reason: heartburn, upset stomach Last Admin: 10/03/17 15:00 Dose: 30 ml Digoxin (Lanoxin) 0.25 mg PO DAILY [facility] Last Admin: 10/04/17 09:31 Dose: 0.25 mg Docusate Sodium (Colace) 100 mg PO BID [facility] Last Admin: 10/04/17 09:31 Dose: 100 mg Furosemide (Lasix) 20 mg PO DAILY [facility] Last Admin: 10/04/17 09:31 Dose: 20 mg Ciprofloxacin (Cipro 200mg/100ml D5w) 100 mls @ 100 mls/hr IVPB Q12 [facility] PRN Reason: Protocol Last Admin: 10/04/17 09:30 Dose: 100 mls/hr Metronidazole (Flagyl 500mg/100ml Ns) 100 mls @ 100 mls/hr IVPB Q8 [facility] PRN Reason: Protocol Last Admin: 10/04/17 09:30 Dose: 100 mls/hr Ondansetron HCl (Zofran Inj) 4 mg IVP Q8H PRN PRN Reason: Nausea/Vomiting Last Admin: 10/04/17 11:39 Dose: 4 mg - Labs Labs: 10/04/17 05:30 10/04/17 05:30 PT 13.7 Seconds (9.8-13.1) H 10/01/17 18:52 INR 1.2 (0.9-1.2) 10/01/17 18:52 APTT 16.6 Seconds (25.6-37.1) L 10/01/17 18:52 - GI/Abdominal Exam Additional comments: soft, NT, ND, BS+, no rebound, no guarding, LLQ colostomy in place with stool in the ostomy bag, well healed midline scar from prior surgery Assessment and Plan - Assessment and Plan (Free Text) Plan: - Start low residue diet - pain control - Continue antibiotics - No general surgery intervention at present time - If tolerates diet, patient is clear for discharge from the general surgery stand point
--- NOTE | 2017-10-04 13:10 | CP.PCM.CON ---
History of Present Illness - History of Present Illness History of Present Illness: Consult requested by Dr Wells- This is a 89 yr old F with history of complicated perforated sigmoid diverticulitis s/p pacheco with colostomy who presents to the hospital for decreased output from colostomy and nausea. She states that she was hospitalized in Jul 2017 with abdominal pain with intractable nausea and vomiting and was seen by Dr. Kinsey and a CT of the Abdomen did not reveal any acute findings. She continues to have the previous symptoms, including epigastric pain. She was also recently started on tramadol by general surgery. She states that her pain was still present upon discharge from the hospital. She states that she has lower abdominal pain in both quadrants since the surgery. She denies any hematemesis, coffee-ground emesis, or GERD-like symptoms. She notes that she had a hiatial hernia repair. On admission she was managed by surgical surgery and was given stool softeners which increased the output. Her colostomy was also checked and there is no blockage. She notes that she has brown output from her colostomy which is semisoft. She was seen eating her lunch with regular diet and had no complains Review of Systems - Review of Systems Review of Systems: 12 point ROS as per HPI Past Patient History - Infectious Disease Hx of Infectious Diseases: None - Past Medical History & Family History Past Medical History?: Yes - Past Social History Smoking Status: Never Smoked - CARDIAC Hx Cardiac Disorders: Yes (CHF, arrhythmia) Hx Congestive Heart Failure: Yes - PULMONARY Hx Respiratory Disorders: No - NEUROLOGICAL Hx Neurological Disorder: No - HEENT Hx HEENT Problems: No - RENAL Hx Chronic Kidney Disease: No - ENDOCRINE/METABOLIC Hx Endocrine Disorders: (gastritis, colostomy) - HEMATOLOGICAL/ONCOLOGICAL Hx Blood Disorders: Yes (anemia) Hx Anemia: Yes - INTEGUMENTARY Hx Dermatological Problems: No - MUSCULOSKELETAL/RHEUMATOLOGICAL Hx Musculoskeletal Disorders: Yes Hx Arthritis: Yes Hx Falls: Yes Hx Osteoporosis: Yes - GASTROINTESTINAL Hx Gastrointestinal Disorders: Yes Hx Colostomy: Yes Hx Constipation: Yes Hx Diverticulitis: Yes Hx Gastritis: Yes Other/Comment: Hiatal Hernia - GENITOURINARY/GYNECOLOGICAL Hx Genitourinary Disorders: No - PSYCHIATRIC Hx Psychophysiologic Disorder: No Hx Substance Use: No - SURGICAL HISTORY Hx Surgeries: Yes Hx Appendectomy: Yes Hx Cholecystectomy: Yes Other/Comment: Feb 2017 Kandis's procedure - ANESTHESIA Hx Anesthesia: Yes Hx Anesthesia Reactions: No Hx Malignant Hyperthermia: No Has any member of the family had a problem w/ anesthesia?: No Meds Allergies/Adverse Reactions: Allergies Allergy/AdvReac Type Severity Reaction Status Date / Time apple Allergy SHORTNESS Verified 10/01/17 13:46 OF BREATH banana Allergy SHORTNESS Verified 10/01/17 13:46 OF BREATH FISH Allergy SHORTNESS Verified 10/01/17 13:46 OF BREATH iodine Allergy SHORTNESS Verified 10/01/17 13:46 OF BREATH latex Allergy RASH Verified 10/01/17 13:46 codeine AdvReac ANAPHYLAXIS Verified 10/01/17 13:46 lidocaine AdvReac ANAPHYLAXIS Verified 10/01/17 13:46 - Medications Medications: Current Medications Acetaminophen (Tylenol 325mg Tab) 650 mg PO Q4 PRN PRN Reason: Pain, severe (8-10) Last Admin: 10/04/17 09:33 Dose: 650 mg Al Hydrox/Mg Hydrox/Simethicone (Maalox Plus 30 Ml) 30 ml PO BID PRN PRN Reason: heartburn, upset stomach Last Admin: 10/03/17 15:00 Dose: 30 ml Digoxin (Lanoxin) 0.25 mg PO DAILY [facility] Last Admin: 10/04/17 09:31 Dose: 0.25 mg Docusate Sodium (Colace) 100 mg PO BID [facility] Last Admin: 10/04/17 09:31 Dose: 100 mg Furosemide (Lasix) 20 mg PO DAILY [facility] Last Admin: 10/04/17 09:31 Dose: 20 mg Ciprofloxacin (Cipro 200mg/100ml D5w) 100 mls @ 100 mls/hr IVPB Q12 [facility] PRN Reason: Protocol Last Admin: 10/04/17 09:30 Dose: 100 mls/hr Metronidazole (Flagyl 500mg/100ml Ns) 100 mls @ 100 mls/hr IVPB Q8 [facility] PRN Reason: Protocol Last Admin: 10/04/17 09:30 Dose: 100 mls/hr Ondansetron HCl (Zofran Inj) 4 mg IVP Q8H PRN PRN Reason: Nausea/Vomiting Last Admin: 10/04/17 11:39 Dose: 4 mg Physical Exam - Constitutional Appears: Well, Non-toxic, No Acute Distress, Cachectic - Head Exam Head Exam: ATRAUMATIC, NORMAL INSPECTION, NORMOCEPHALIC - Eye Exam Eye Exam: EOMI, Normal appearance, PERRL Pupil Exam: NORMAL ACCOMODATION, PERRL - ENT Exam ENT Exam: Mucous Membranes Moist, Normal Exam - Respiratory Exam Respiratory Exam: Clear to Auscultation Bilateral, NORMAL BREATHING PATTERN - Cardiovascular Exam Cardiovascular Exam: REGULAR RHYTHM, RRR, +S1, +S2 - GI/Abdominal Exam GI & Abdominal Exam: Normal Bowel Sounds, Soft. absent: Tenderness Additional comments: Colostomy with brown stool - Psychiatric Exam Psychiatric exam: Normal Affect, Normal Mood - Skin Skin Exam: Dry, Intact Results - Vital Signs Recent Vital Signs: Last Vital Signs Temp 98.7 F 10/04/17 08:26 Pulse 87 10/04/17 08:26 Resp 18 10/04/17 08:26 BP 117/70 10/04/17 09:31 Pulse Ox 98 10/04/17 08:26 - Labs Result Diagrams: 10/04/17 05:30 10/04/17 05:30 Labs: Laboratory Results - last 24 hr 10/04/17 10/04/17 05:30 05:30 WBC 5.5 RBC 3.31 L Hgb 9.5 L Hct 29.1 L MCV 87.8 MCH 28.8 MCHC 32.8 L RDW 15.5 H Plt Count 314 Sodium 141 Potassium 3.7 Chloride 100 Carbon Dioxide 24 Anion Gap 21 H BUN 15 Creatinine 0.9 Est GFR ( Amer) > 60 Est GFR (Non-Af Amer) 59 Random Glucose 70 Calcium 8.2 L Total Bilirubin 0.3 AST 19 ALT 33 Alkaline Phosphatase 64 Total Protein 6.1 L Albumin 2.8 L Globulin 3.3 Albumin/Globulin Ratio 0.9 L Assessment & Plan - Assessment and Plan (Free Text) Assessment: 89 yr olf F with sigmoid perforation in 02/2017 s/p Hartmans procedure with colostomy admitted with nausea and decreased output from colostomy. Symptoms have resolved on stool softeners Plan: Avoid NSIAD's PPI daily in am Continue stool softeners Follow with surgeon upon discharge No further GI intervention required Thank you for letting us participate in the care of your patient
[2017-10-04] MEDS: Alum-Mag Hydrox-Simethicone Susp (30 mL) PO PRN ×2 (13:27→21:27)
[2017-10-05] MEDS: metroNIDAZOLE 500mg/100ml NS 100 ML IVPB SCH ×3 (00:36→16:49)
[2017-10-05] MEDS ORDERED: Oxycodone/Acetaminophen 5/325 mg Tab PO ONE (03:13)
[2017-10-05 07:37] VITALS: RESP 18
--- NOTE | 2017-10-05 08:36 | CP.PCM.PN ---
Addendum entered and electronically signed by Popeye Mahmood, 10/05/17 09:37: 89F with fecal impaction that has resolved and colitis - continue low residue diet - Continue to monitor ostomy output - NO further surgical intervention Further recs discuss with Dr. chance Mahmood, PGY2 Original Note: <Popeye Mahmood - Last Filed: 10/05/17 08:31> Subjective - Date & Time of Evaluation Date of Evaluation: 10/05/17 Time of Evaluation: 08:31 - Subjective Subjective: SURGERY PROGRESS NOTE FOR DR. KABA 89F seen and examined at bedside. No acute events overnight. Patient denies nausea, vomiting. Patient continues to have output out the ostomy. Pain is controlled. Objective - Vital Signs/Intake and Output Vital Signs (last 24 hours): Temp Pulse Resp BP Pulse Ox 98.5 F 93 H 18 112/73 96 10/05/17 07:36 10/05/17 07:36 10/05/17 07:36 10/05/17 07:36 10/05/17 07:36 - Medications Medications: Current Medications Acetaminophen (Tylenol 325mg Tab) 650 mg PO Q4 PRN PRN Reason: Pain, severe (8-10) Last Admin: 10/04/17 21:40 Dose: 650 mg Al Hydrox/Mg Hydrox/Simethicone (Maalox Plus 30 Ml) 30 ml PO BID PRN PRN Reason: heartburn, upset stomach Last Admin: 10/04/17 21:27 Dose: 30 ml Digoxin (Lanoxin) 0.25 mg PO DAILY [facility] Last Admin: 10/04/17 09:31 Dose: 0.25 mg Docusate Sodium (Colace) 100 mg PO BID [facility] Last Admin: 10/04/17 16:15 Dose: 100 mg Enoxaparin Sodium (Lovenox) 30 mg SC DAILY [facility] PRN Reason: Protocol Furosemide (Lasix) 20 mg PO DAILY [facility] Last Admin: 10/04/17 09:31 Dose: 20 mg Ciprofloxacin (Cipro 200mg/100ml D5w) 100 mls @ 100 mls/hr IVPB Q12 [facility] PRN Reason: Protocol Last Admin: 10/04/17 21:00 Dose: 100 mls/hr Metronidazole (Flagyl 500mg/100ml Ns) 100 mls @ 100 mls/hr IVPB Q8 [facility] PRN Reason: Protocol Last Admin: 10/05/17 00:36 Dose: 100 mls/hr Ondansetron HCl (Zofran Inj) 4 mg IVP Q8H PRN PRN Reason: Nausea/Vomiting Last Admin: 10/05/17 01:43 Dose: 4 mg - Labs Labs: 10/04/17 05:30 10/04/17 05:30 PT 13.7 Seconds (9.8-13.1) H 10/01/17 18:52 INR 1.2 (0.9-1.2) 10/01/17 18:52 APTT 16.6 Seconds (25.6-37.1) L 10/01/17 18:52 - Constitutional Appears: Well, Non-toxic, No Acute Distress - Respiratory Exam Respiratory Exam: Clear to Ausculation Bilateral, NORMAL BREATHING PATTERN - Cardiovascular Exam Cardiovascular Exam: REGULAR RHYTHM, +S1, +S2 - GI/Abdominal Exam GI & Abdominal Exam: Soft. absent: Distended, Firm, Guarding, Rigid, Tenderness , Rebound Additional comments: stoma - pink and patent Good ostomy output - Neurological Exam Neurological Exam: Alert, Awake - Psychiatric Exam Psychiatric exam: Normal Affect, Normal Mood - Skin Skin Exam: Dry, Intact, Normal Color, Warm <Damon Kaba - Last Filed: 10/05/17 10:25> Subjective - Date & Time of Evaluation Time of Evaluation: 09:40 - Subjective Subjective: Patient was seen and examined at the bedside. Agree with resident's note above. Objective - Vital Signs/Intake and Output Vital Signs (last 24 hours): Temp Pulse Resp BP Pulse Ox 98.5 F 93 H 18 112/73 96 10/05/17 07:36 10/05/17 07:36 10/05/17 07:36 10/05/17 08:46 10/05/17 07:36 - Medications Medications: Current Medications Acetaminophen (Tylenol 325mg Tab) 650 mg PO Q4 PRN PRN Reason: Pain, severe (8-10) Last Admin: 10/04/17 21:40 Dose: 650 mg Al Hydrox/Mg Hydrox/Simethicone (Maalox Plus 30 Ml) 30 ml PO BID PRN PRN Reason: heartburn, upset stomach Last Admin: 10/04/17 21:27 Dose: 30 ml Digoxin (Lanoxin) 0.25 mg PO DAILY [facility] Last Admin: 10/05/17 08:48 Dose: 0.25 mg Docusate Sodium (Colace) 100 mg PO BID [facility] Last Admin: 10/05/17 08:46 Dose: 100 mg Enoxaparin Sodium (Lovenox) 30 mg SC DAILY [facility] PRN Reason: Protocol Last Admin: 10/05/17 08:49 Dose: 30 mg Furosemide (Lasix) 20 mg PO DAILY [facility] Last Admin: 10/05/17 08:46 Dose: 20 mg Ciprofloxacin (Cipro 200mg/100ml D5w) 100 mls @ 100 mls/hr IVPB Q12 [facility] PRN Reason: Protocol Last Admin: 10/05/17 08:47 Dose: 100 mls/hr Metronidazole (Flagyl 500mg/100ml Ns) 100 mls @ 100 mls/hr IVPB Q8 [facility] PRN Reason: Protocol Last Admin: 10/05/17 08:46 Dose: 100 mls/hr Ondansetron HCl (Zofran Inj) 4 mg IVP Q8H PRN PRN Reason: Nausea/Vomiting Last Admin: 10/05/17 08:43 Dose: 4 mg Tramadol HCl (Ultram) 50 mg PO Q6 PRN PRN Reason: Pain, moderate (4-7) Last Admin: 10/05/17 09:14 Dose: 50 mg - Labs Labs: 10/04/17 05:30 10/04/17 05:30 PT 13.7 Seconds (9.8-13.1) H 10/01/17 18:52 INR 1.2 (0.9-1.2) 10/01/17 18:52 APTT 16.6 Seconds (25.6-37.1) L 10/01/17 18:52 Assessment and Plan - Assessment and Plan (Free Text) Assessment: 89 y.o. female with resolved constipation and colitis Plan: - Continue diet - Continue antibiotics - pain control - monitor ostomy output - Patient is clear for discharge from the general surgery stand point - No general surgery intervention at present time - General surgery will sign off - Please re-consults as needed
[2017-10-05] MEDS: Ciprofloxacin 200mg/100ml D5W 100 ML IVPB SCH (08:47)
[2017-10-05] MEDS: Digoxin 250 mcg (0.25 mg) Tab PO SCH (08:48)
[2017-10-05 08:49] VITALS: PULSE 93
[2017-10-05] MEDS ORDERED: Enoxaparin 30 mg Syringe SC SCH (09:00)
--- NOTE | 2017-10-05 14:22 | CP.PCM.DIS ---
Provider - Provider Date of Admission: 10/02/17 01:43 Attending physician: Migue Wells MD Consults: Surgery GI Time Spent in preparation of Discharge (in minutes): 30 Diagnosis - Discharge Diagnosis (1) Colitis Status: Acute Comment: C/W IV Abx (2) Abdominal pain Status: Acute Comment: Improved/Constipation related (3) Colostomy status Status: Acute Hospital Course - Lab Results Lab Results: Micro Results 10/02/17 16:00 Blood Blood Culture - Preliminary NO GROWTH AFTER 48 HOURS Most Recent Lab Values WBC 5.5 K/uL (4.8-10.8) 10/04/17 05:30 RBC 3.31 Mil/uL (3.80-5.20) L 10/04/17 05:30 Hgb 9.5 g/dL (12.0-16.0) L 10/04/17 05:30 Hct 29.1 % (34.0-47.0) L 10/04/17 05:30 MCV 87.8 fl (81.0-99.0) 10/04/17 05:30 MCH 28.8 pg (27.0-31.0) 10/04/17 05:30 MCHC 32.8 g/dL (33.0-37.0) L 10/04/17 05:30 RDW 15.5 % (11.5-14.5) H 10/04/17 05:30 Plt Count 314 K/uL (130-400) 10/04/17 05:30 MPV 7.7 fl (7.2-11.7) 10/02/17 06:20 Neut % (Auto) 67.2 % (50.0-75.0) 10/02/17 06:20 Lymph % (Auto) 15.3 % (20.0-40.0) L 10/02/17 06:20 [place] % (Auto) 12.3 % (0.0-10.0) H 10/02/17 06:20 Eos % (Auto) 4.7 % (0.0-4.0) H 10/02/17 06:20 Baso % (Auto) 0.5 % (0.0-2.0) 10/02/17 06:20 Neut # (Auto) 4.4 K/uL (1.8-7.0) 10/02/17 06:20 Lymph # (Auto) 1.0 K/uL (1.0-4.3) 10/02/17 06:20 [place] # (Auto) 0.8 K/uL (0.0-0.8) 10/02/17 06:20 Eos # (Auto) 0.3 K/uL (0.0-0.7) 10/02/17 06:20 Baso # (Auto) 0.0 K/uL (0.0-0.2) 10/02/17 06:20 PT 13.7 Seconds (9.8-13.1) H 10/01/17 18:52 INR 1.2 (0.9-1.2) 10/01/17 18:52 APTT 16.6 Seconds (25.6-37.1) L 10/01/17 18:52 Sodium 141 mmol/l (132-148) 10/04/17 05:30 Potassium 3.7 MMOL/L (3.6-5.0) 10/04/17 05:30 Chloride 100 mmol/L (98-107) 10/04/17 05:30 Carbon Dioxide 24 mmol/L (22-30) 10/04/17 05:30 Anion Gap 21 (10-20) H 10/04/17 05:30 BUN 15 mg/dl (7-17) 10/04/17 05:30 Creatinine 0.9 mg/dl (0.7-1.2) 10/04/17 05:30 Est GFR ( Amer) > 60 10/04/17 05:30 Est GFR (Non-Af Amer) 59 10/04/17 05:30 Random Glucose 70 mg/dL (65-105) 10/04/17 05:30 Lactic Acid 0.6 MMOL/L (0.7-2.1) L 10/02/17 17:49 Calcium 8.2 mg/dL (8.4-10.2) L 10/04/17 05:30 Total Bilirubin 0.3 mg/dl (0.2-1.3) 10/04/17 05:30 AST 19 U/L (14-36) 10/04/17 05:30 ALT 33 U/L (9-52) 10/04/17 05:30 Alkaline Phosphatase 64 U/L (38-126) 10/04/17 05:30 Total Protein 6.1 G/DL (6.3-8.2) L 10/04/17 05:30 Albumin 2.8 g/dL (3.5-5.0) L 10/04/17 05:30 Globulin 3.3 gm/dL (2.2-3.9) 10/04/17 05:30 Albumin/Globulin Ratio 0.9 (1.0-2.1) L 10/04/17 05:30 Lipase 28 U/L (23-300) 10/01/17 18:30 - Hospital Course Hospital Course: Evaluated with Dr Wells during morning rounds today. 89 yr old F with history of complicated perforated sigmoid diverticulitis s/p pacheco with colostomy years ago admitted to the hospital for decreased output from colostomy and nausea. Patient was evaluated by GI and Sx and was started on stool softener and low residual diet. BM and abd pain improved with selected treatment and patient was started on IV abx also due to CT finding suspicious for Colitis. No diarrhea, fever, vomiting, melena or hematochezia. Patient was cleared by Consultants today and she is stable to transfer to TCU unit to c/w abx and PT until ready for DC home Discharge Exam - Head Exam Head Exam: ATRAUMATIC, NORMAL INSPECTION, NORMOCEPHALIC - Eye Exam Eye Exam: EOMI, PERRL - ENT Exam ENT Exam: Mucous Membranes Moist - Respiratory Exam Respiratory Exam: Clear to PA & Lateral, NORMAL BREATHING PATTERN, UNREMARKABLE - Cardiovascular Exam Cardiovascular Exam: REGULAR RHYTHM, +S1, +S2. absent: Gallop - GI/Abdominal Exam GI & Abdominal Exam: Normal Bowel Sounds, Soft, Tenderness (Diffuse). absent: Distended, Guarding, Rigid - Extremities Exam Extremities exam: normal capillary refill - Neurological Exam Neurological exam: Alert, Oriented x3 - Psychiatric Exam Psychiatric exam: Normal Affect, Normal Mood - Skin Skin Exam: Normal Color, Warm Discharge Plan - Discharge Medications Prescriptions: Ciprofloxacin Lactate [Ciprofloxacin] 200 mg IV Q12 #10 vial metroNIDAZOLE IV 500 mg/100 ml [Flagyl IV] 500 mg IV Q8 #15 bag - Follow Up Plan Condition: STABLE Disposition: REHAB FACILITY/REHAB UNIT Instructions: How to Care for Your Ostomy, Adult, Constipation, Adult (DC), Colostomy Care Referrals: Migue Wells MD [Family Provider] -
[2017-10-05 15:54] VITALS: BP 120/72; PULSE 69; TEMP 97.9; O2SAT 96
[2017-10-05] MEDS: Alum-Mag Hydrox-Simethicone Susp (30 mL) PO PRN (16:55)
== END 2017-10-05 20:15 | DRG 392 ==
LOC: H.ER 13:32 → H.ERHOLD 10-02 01:43 → H.MEDSURG1 10-02 05:41
PROVIDERS: ADMIT Internal Medicine; ATTEND Internal Medicine
DX: K52.9 Noninfective gastroenteritis and colitis, unspecified (principal); K56.41 Fecal impaction; D64.9 Anemia, unspecified; N28.1 Cyst of kidney, acquired; K44.9 Diaphragmatic hernia without obstruction or gangrene; I25.10 Atherosclerotic heart disease of native coronary artery without angina pectoris; Z93.3 Colostomy status; I50.9 Heart failure, unspecified; K29.70 Gastritis, unspecified, without bleeding; M81.0 Age-related osteoporosis without current pathological fracture; M19.90 Unspecified osteoarthritis, unspecified site; Z88.6 Allergy status to analgesic agent; Z91.041 Radiographic dye allergy status; Z91.040 Latex allergy status; Z91.013 Allergy to seafood; Z90.49 Acquired absence of other specified parts of digestive tract

== ENCOUNTER 2017-10-05 14:28 | Inpatient (IN) | payer OTHER ==
[2017-10-05 20:27] VITALS: BMI 20.6
[2017-10-05] MEDS: Ciprofloxacin 200mg/100ml D5W 100 ML IVPB SCH (21:52)
[2017-10-05] MEDS: Alum-Mag Hydrox-Simethicone Susp (30 mL) PO PRN (22:05)
[2017-10-05] MEDS: metroNIDAZOLE 500mg/100ml NS 100 ML IVPB SCH (22:08)
[2017-10-05 23:54] VITALS: RESP 20
[2017-10-06] MEDS: metroNIDAZOLE 500mg/100ml NS 100 ML IVPB SCH ×3 (04:22→20:02)
[2017-10-06] MEDS: Alum-Mag Hydrox-Simethicone Susp (30 mL) PO PRN ×2 (04:29→13:11)
[2017-10-06] MEDS: Ciprofloxacin 200mg/100ml D5W 100 ML IVPB SCH ×2 (05:47→17:21)
[2017-10-06 07:14] LABS: BLOOD UREA NITROGEN 12 mg/dl (7-17); CALCIUM 8.1 mg/dL (8.4-10.2); GFR AFRICAN-AMERICAN > 60; GFR NON-AFRICAN AMERICAN > 60
[2017-10-06 07:38] LABS: HEMOGLOBIN 10.4 g/dL (12.0-16.0); MEAN CELL VOLUME 89.8 fl (81.0-99.0); MEAN CORPUSCULAR HEMOGLOBIN 29.2 pg (27.0-31.0); MEAN CORPUSCULAR HGB CONC 32.5 g/dL (33.0-37.0); RBC 3.58 Mil/uL (3.80-5.20); RED CELL DISTRIBUTION WIDTH 16.4 % (11.5-14.5); WHITE BLOOD COUNT 4.9 K/uL (4.8-10.8)
--- NOTE | 2017-10-06 07:51 | CP.PCM.HP ---
History of Present Illness - History of Present Illness History of Present Illness: Patient evaluated with Dr Wells during rounds this morning. 89 yr old F with history of complicated perforated sigmoid diverticulitis s/p pacheco with colostomy presented to the hospital for decreased output from colostomy and nausea. Patient was evaluated by Sx and GI team and patient was started on IV abx and laxatives after CT abd reported colitis and stool retention. Pain improved over her stay in the hosp and VS remained stable. Yesterday patient was transferred to TCU to c/w abx IV. Present on Admission - Present on Admission Any Indicators Present on Admission: No Review of Systems - Review of Systems All systems: reviewed and no additional remarkable complaints except - Gastrointestinal Gastrointestinal: Abdominal Pain Past Patient History - Infectious Disease Hx of Infectious Diseases: None - Past Medical History & Family History Past Medical History?: Yes - Past Social History Smoking Status: Never Smoked - CARDIAC Hx Cardia Arrhythmia: Yes Hx Congestive Heart Failure: Yes - PULMONARY Hx Respiratory Disorders: No - NEUROLOGICAL Hx Neurological Disorder: No - HEENT Hx HEENT Problems: No - RENAL Hx Chronic Kidney Disease: No - ENDOCRINE/METABOLIC Hx Endocrine Disorders: (gastritis, colostomy) - HEMATOLOGICAL/ONCOLOGICAL Hx Anemia: Yes Hx Human Immunodeficiency Virus (HIV): No - INTEGUMENTARY Hx Dermatological Problems: No - MUSCULOSKELETAL/RHEUMATOLOGICAL Hx Arthritis: Yes Hx Osteoporosis: Yes - GASTROINTESTINAL Hx Diverticulitis: Yes Hx Gastritis: Yes Other/Comment: with left colostomy - GENITOURINARY/GYNECOLOGICAL Hx Genitourinary Disorders: No - PSYCHIATRIC Hx Psychophysiologic Disorder: No Hx Substance Use: No - SURGICAL HISTORY Hx Appendectomy: Yes Hx Cholecystectomy: Yes - ANESTHESIA Hx Anesthesia: Yes Hx Anesthesia Reactions: No Hx Malignant Hyperthermia: No Meds Allergies/Adverse Reactions: Allergies Allergy/AdvReac Type Severity Reaction Status Date / Time apple Allergy SHORTNESS Verified 10/01/17 13:46 OF BREATH banana Allergy SHORTNESS Verified 10/01/17 13:46 OF BREATH FISH Allergy SHORTNESS Verified 10/01/17 13:46 OF BREATH iodine Allergy SHORTNESS Verified 10/01/17 13:46 OF BREATH latex Allergy RASH Verified 10/01/17 13:46 codeine AdvReac ANAPHYLAXIS Verified 10/01/17 13:46 lidocaine AdvReac ANAPHYLAXIS Verified 10/01/17 13:46 Physical Exam - Constitutional Appears: No Acute Distress, Chronically Ill - Head Exam Head Exam: ATRAUMATIC - Eye Exam Eye Exam: EOMI, PERRL - ENT Exam ENT Exam: Mucous Membranes Moist - Respiratory Exam Respiratory Exam: Clear to Auscultation Bilateral, NORMAL BREATHING PATTERN. absent: Rales, Respiratory Distress - Cardiovascular Exam Cardiovascular Exam: REGULAR RHYTHM, +S1, +S2. absent: Gallop - GI/Abdominal Exam GI & Abdominal Exam: Normal Bowel Sounds, Soft, Tenderness (Mild, diffuse). absent: Distended, Guarding, Rigid Additional comments: Colostomy status - Neurological Exam Neurological exam: Alert, Oriented x3 - Psychiatric Exam Psychiatric exam: Normal Affect, Normal Mood - Skin Skin Exam: Pallor (Mild), Warm Results - Vital Signs Recent Vital Signs: Last Vital Signs Temp 99 F 10/05/17 22:00 Pulse 77 10/05/17 22:00 Resp 20 10/05/17 22:00 BP 130/78 10/05/17 22:00 Pulse Ox 97 10/05/17 22:00 - Labs Result Diagrams: 10/06/17 05:50 10/06/17 05:50 Labs: Laboratory Results - last 24 hr 10/06/17 10/06/17 05:50 05:50 WBC 4.9 RBC 3.58 L Hgb 10.4 L Hct 32.1 L MCV 89.8 D MCH 29.2 MCHC 32.5 L RDW 16.4 H Plt Count 339 Sodium 140 Potassium 3.5 L Chloride 106 Carbon Dioxide 22 Anion Gap 16 BUN 12 Creatinine 0.6 L Est GFR ( Amer) > 60 Est GFR (Non-Af Amer) > 60 Random Glucose 94 Calcium 8.1 L Assessment & Plan - Assessment and Plan (Free Text) Assessment: Colitis No diarrhea reported on CT abd/pelvis C/W IV Cipro and Flagyl GI consult appreciated Constipation/abd pain Improving C/W stool softeners and low residual diet Sx consult appreciated Anemia, chronic Hgb 10s Stable Monitor
[2017-10-06] MEDS ORDERED: Enoxaparin 40 mg Syringe SC SCH (09:00)
[2017-10-06] MEDS: Digoxin 250 mcg (0.25 mg) Tab PO SCH (09:01)
[2017-10-06] MEDS: Pantoprazole 40 mg EC Tab PO SCH (09:01)
[2017-10-06] MEDS: Enoxaparin 30 mg Syringe SC SCH (16:59)
[2017-10-06] MEDS: Simethicone 80 mg Chewtab PO PRN (20:01)
[2017-10-07] MEDS: metroNIDAZOLE 500mg/100ml NS 100 ML IVPB SCH ×3 (05:30→20:46)
[2017-10-07] MEDS: Ciprofloxacin 200mg/100ml D5W 100 ML IVPB SCH ×2 (05:30→17:09)
[2017-10-07] MEDS: Simethicone 80 mg Chewtab PO PRN (06:15)
[2017-10-07 06:27] LABS: CALCIUM 8.1 mg/dL (8.4-10.2); GFR AFRICAN-AMERICAN > 60; GFR NON-AFRICAN AMERICAN > 60
[2017-10-07 06:34] LABS: BLOOD UREA NITROGEN 12 mg/dl (7-17)
[2017-10-07] MEDS: Enoxaparin 30 mg Syringe SC SCH (08:54)
[2017-10-07] MEDS: Digoxin 250 mcg (0.25 mg) Tab PO SCH (08:56)
[2017-10-07] MEDS: Pantoprazole 40 mg EC Tab PO SCH (08:56)
[2017-10-07] MEDS: Alum-Mag Hydrox-Simethicone Susp (30 mL) PO PRN ×2 (08:59→17:06)
--- NOTE | 2017-10-07 09:13 | CP.PCM.PN ---
Subjective - Date & Time of Evaluation Date of Evaluation: 10/07/17 Time of Evaluation: 07:00 - Subjective Subjective: Evaluated at bedside with Dr Wells during rounds. Patient keeps c/o abd pain. Today pain is located to RUQ/Epigastric area. Admits intermittent nausea and heartburn. Patient on PPIs and [id number]. Afebrile. Denies CP, palpitations, SOB. Objective - Vital Signs/Intake and Output Vital Signs (last 24 hours): Temp Pulse Resp BP Pulse Ox 98.2 F 75 20 128/71 98 10/07/17 07:50 10/07/17 07:50 10/07/17 07:50 10/07/17 08:59 10/07/17 07:50 - Medications Medications: Current Medications Acetaminophen (Tylenol 325mg Tab) 650 mg PO Q6 PRN PRN Reason: moderate pain Al Hydrox/Mg Hydrox/Simethicone (Maalox Plus 30 Ml) 30 ml PO Q6 PRN PRN Reason: Indigestion / Heartburn Last Admin: 10/07/17 08:59 Dose: 30 ml Digoxin (Lanoxin) 0.25 mg PO DAILY [facility] Last Admin: 10/07/17 08:56 Dose: 0.25 mg Docusate Sodium (Colace) 100 mg PO TID [facility] Last Admin: 10/07/17 08:55 Dose: 100 mg Enoxaparin Sodium (Lovenox) 30 mg SC DAILY [facility] PRN Reason: Protocol Last Admin: 10/07/17 08:54 Dose: 30 mg Famotidine (Pepcid) 20 mg PO BID [facility] Last Admin: 10/07/17 08:55 Dose: 20 mg Furosemide (Lasix) 20 mg PO DAILY [facility] Last Admin: 10/07/17 08:59 Dose: 20 mg Ciprofloxacin (Cipro 200mg/100ml D5w) 100 mls @ 100 mls/hr IVPB Q12@0600,1800 [facility] PRN Reason: Protocol Last Admin: 10/07/17 05:30 Dose: 100 mls/hr Metronidazole (Flagyl 500mg/100ml Ns) 100 mls @ 100 mls/hr IVPB Q8@0500,1300, 2100 [facility] PRN Reason: Protocol Last Admin: 10/07/17 05:30 Dose: 100 mls/hr Ibuprofen (Motrin Tab) 600 mg PO Q8 PRN PRN Reason: Pain, moderate (4-7) Last Admin: 10/07/17 08:54 Dose: 600 mg Ondansetron HCl (Zofran Tab) 4 mg PO Q6 PRN PRN Reason: Nausea/Vomiting Last Admin: 10/07/17 08:56 Dose: 4 mg Pantoprazole Sodium (Protonix Ec Tab) 40 mg PO DAILY [facility] Last Admin: 10/07/17 08:56 Dose: 40 mg Simethicone (Mylicon Chew Tab) 80 mg PO TID PRN PRN Reason: Flatulence Last Admin: 10/07/17 06:15 Dose: 80 mg Tramadol HCl (Ultram) 50 mg PO Q6 PRN PRN Reason: Pain, moderate (4-7) Last Admin: 10/06/17 21:34 Dose: 50 mg - Labs Labs: 10/06/17 05:50 10/07/17 05:54 - Constitutional Appears: Non-toxic, No Acute Distress - Eye Exam Eye Exam: EOMI, PERRL - ENT Exam ENT Exam: Mucous Membranes Moist - Respiratory Exam Respiratory Exam: Clear to Ausculation Bilateral, NORMAL BREATHING PATTERN. absent: Decreased Breath Sounds, Rales - Cardiovascular Exam Cardiovascular Exam: REGULAR RHYTHM, +S1, +S2. absent: Gallop - GI/Abdominal Exam GI & Abdominal Exam: Soft, Tenderness (epigastric), Normal Bowel Sounds. absent : Distended, Guarding, Rigid, Rebound - Extremities Exam Extremities Exam: Normal Capillary Refill. absent: Calf Tenderness, Pedal Edema , Tenderness - Neurological Exam Neurological Exam: Alert, Awake, Oriented x3 - Psychiatric Exam Psychiatric exam: Normal Affect, Normal Mood - Skin Skin Exam: Warm Assessment and Plan - Assessment and Plan (Free Text) Assessment: Colitis/Constipation/Abd pain Stable C/o abd pain will order abd and pelvis US Asked nurse to give 1 dose of Maalox now C/W same meds including abx F/u US results
[2017-10-07 20:26] VITALS: O2SAT 99
[2017-10-08] MEDS: metroNIDAZOLE 500mg/100ml NS 100 ML IVPB SCH ×2 (04:14→06:39)
[2017-10-08] MEDS: Ciprofloxacin 200mg/100ml D5W 100 ML IVPB SCH (06:36)
[2017-10-08 08:07] VITALS: BP 120/61; PULSE 69; TEMP 97.2
[2017-10-08] MEDS: Digoxin 250 mcg (0.25 mg) Tab PO SCH (08:43)
[2017-10-08] MEDS: Enoxaparin 30 mg Syringe SC SCH (08:44)
[2017-10-08] MEDS: Pantoprazole 40 mg EC Tab PO SCH (08:44)
[2017-10-08 08:46] VITALS: PULSE 69
--- NOTE | 2017-10-08 13:47 | CP.PCM.DIS ---
Provider - Provider Date of Admission: 10/05/17 20:27 Attending physician: Migue Wells MD Primary care physician: Dr Wells Time Spent in preparation of Discharge (in minutes): 35 Diagnosis - Discharge Diagnosis (1) Colitis Status: Acute Comment: Improved after Abx/supportive measures. Poss inflammatory. (2) Colostomy status Status: Acute Hospital Course - Lab Results Lab Results: Most Recent Lab Values WBC 4.9 K/uL (4.8-10.8) 10/06/17 05:50 RBC 3.58 Mil/uL (3.80-5.20) L 10/06/17 05:50 Hgb 10.4 g/dL (12.0-16.0) L 10/06/17 05:50 Hct 32.1 % (34.0-47.0) L 10/06/17 05:50 MCV 89.8 fl (81.0-99.0) D 10/06/17 05:50 MCH 29.2 pg (27.0-31.0) 10/06/17 05:50 MCHC 32.5 g/dL (33.0-37.0) L 10/06/17 05:50 RDW 16.4 % (11.5-14.5) H 10/06/17 05:50 Plt Count 339 K/uL (130-400) 10/06/17 05:50 Sodium 138 mmol/l (132-148) 10/07/17 05:54 Potassium 3.8 MMOL/L (3.6-5.0) 10/07/17 05:54 Chloride 105 mmol/L (98-107) 10/07/17 05:54 Carbon Dioxide 23 mmol/L (22-30) 10/07/17 05:54 Anion Gap 14 (10-20) 10/07/17 05:54 BUN 12 mg/dl (7-17) 10/07/17 05:54 Creatinine 0.7 mg/dl (0.7-1.2) 10/07/17 05:54 Est GFR ( Amer) > 60 10/07/17 05:54 Est GFR (Non-Af Amer) > 60 10/07/17 05:54 Random Glucose 91 mg/dL (65-105) 10/07/17 05:54 Calcium 8.1 mg/dL (8.4-10.2) L 10/07/17 05:54 - Hospital Course Hospital Course: Patient evaluated with Dr Wells during rounds today 89 y/o F admitted to TCU unit to c/w IV abx after being DC from regular floor with Colitis/Constipation. Patient was treated with abx and supportive measures and markedly improved. US abd yesterday reports no acute changes. She has been afebrile, no diarrhea and VS stable since admitted to TCU. Today patient is stable to DC home to finish abx treatment PO Discharge Exam - Head Exam Head Exam: ATRAUMATIC - Eye Exam Eye Exam: PERRL - ENT Exam ENT Exam: Mucous Membranes Moist - Respiratory Exam Respiratory Exam: Clear to PA & Lateral, NORMAL BREATHING PATTERN, UNREMARKABLE - Cardiovascular Exam Cardiovascular Exam: REGULAR RHYTHM, +S1, +S2. absent: Gallop - GI/Abdominal Exam GI & Abdominal Exam: Soft, Tenderness (Mild, diffuse). absent: Distended, Firm , Guarding, Mass, Rebound, Rigid Additional comments: Colostomy status - Extremities Exam Extremities exam: normal capillary refill, pedal pulses present - Neurological Exam Neurological exam: Alert, Oriented x3 - Psychiatric Exam Psychiatric exam: Normal Affect, Normal Mood - Skin Skin Exam: Normal Color, Warm Discharge Plan - Discharge Medications Prescriptions: Ciprofloxacin [Cipro] 250 mg PO Q12 #6 tab metroNIDAZOLE [Flagyl] 500 mg PO Q8 #9 tab - Follow Up Plan Condition: STABLE Disposition: HOME/ ROUTINE Patient education suggested?: Yes Additional Instructions: F/U with Dr Wells within 1 week at his office Referrals: Migue Wells MD [Family Provider] -
== END 2017-10-08 14:43 | disposition home or self-care (01) | DRG 392 ==
LOC: H.TCU 20:27
PROVIDERS: ADMIT Internal Medicine; ATTEND Internal Medicine
PROC: F07Z9FZ Gait Training/Functional Ambulation Treatment using Assistive, Adaptive, Supportive or Protective Equipment (ICD-10-PCS; principal; 2017-10-05)
PROC: 3E03329 Introduction of Other Anti-infective into Peripheral Vein, Percutaneous Approach (ICD-10-PCS; 2017-10-05)
PROC: F08Z4FZ Home Management Treatment using Assistive, Adaptive, Supportive or Protective Equipment (ICD-10-PCS; 2017-10-05)
PROC: F07M6FZ Therapeutic Exercise Treatment of Musculoskeletal System - Whole Body using Assistive, Adaptive, Supportive or Protective Equipment (ICD-10-PCS; 2017-10-06)
DX: K52.9 Noninfective gastroenteritis and colitis, unspecified (principal); D64.9 Anemia, unspecified; Z93.3 Colostomy status; K59.00 Constipation, unspecified; M81.0 Age-related osteoporosis without current pathological fracture; Z90.49 Acquired absence of other specified parts of digestive tract; Z88.6 Allergy status to analgesic agent; Z91.041 Radiographic dye allergy status; Z91.040 Latex allergy status; Z91.013 Allergy to seafood